=== PATIENT | female | born 1995 | race Caucasian/White ===

== ENCOUNTER 2024-11-18 22:25 | Emergency (ER) | payer BC, SELFPAY ==
[2024-11-18 22:26] VITALS: BP 147/91; PULSE 75; RESP 14; TEMP 36.6; O2SAT 98; BMI 24.5
[2024-11-18 22:28] VITALS: BP 147/67; PULSE 69; RESP 18; TEMP 36.6; O2SAT 98
[2024-11-18 23:14] LABS: Hematocrit 41.2 % (37-47); Hemoglobin 13.7 g/dL (12.0-15.0); Immature Granulocytes Count 0.030 X10^3/uL (0.0-0.0); Mean Corp Hgb Conc 33.3 g/dL (32-36); Mean Corpuscular Volume 81.4 fL (81-99); Mean Platelet Vol. 10.0 fl (6.2-12.0); NRBC Flagged by Analyzer 0 % (0-5); Platelet Count 243 K/mm3 (150-450); RBC Distribution Width CV 13.7 % (11.6-14.6); RBC Distribution Width SD 40.0 fl (35.1-43.9); Red Blood Count 5.06 M/mm3 (4.2-5.4); White Blood Count 7.5 K/mm3 (4.4-11.0)
[2024-11-18] MEDS: Ampicillin/Sulbactam 3 GM in 0.9% Normal Saline (100mL MB+) 100 ML IV (23:15)
--- OUTSIDE RECORDS SUMMARY | 2024-11-18 23:22 | XMS RPT_ITS | CCD ---
Author Organization [facility] Care Team Providers Care Informatics Analyst Name Role Phone KEISHA REDDY Unavailable Unavailable KEISHA REDDY GENE Unavailable Unavailable Keisha Reddy G Unavailable Unavailable Jolliff, Glenis Unavailable Unavailable Keisha Reddy G Unavailable Unavailable Jolliff, Glenis Unavailable Unavailable Unavailable Primary Care Provider UnavailBijal Saucedo Primary Care Provider [phone] Bijal Mo Primary Care Provider [phone] Bijal Mo Primary Care Provider Unavailable Primary Care Provider UnavailGLENIS Stinson Attending Unavailable BIJAL MO Primary Care Unavailable Medications Current Medications Medication Drug Class(es) Dates Sig (Normalized) Sig (Original) acetaminophen 500 mg oral tablet (4 sources) Start: 01-03-2023 take 1 tablet by mouth every eight hours as needed for pain acetaminophen (Tylenol) 500 MG tablet Take 1 tablet (500 mg) by mouth every 8 hours as needed for mild pain (1-3). 60 tablet 0 01/03/2023 Active Start: 01-01-2023 End: 01-03-2023 take 1 tablet by mouth every six hours as needed 650 mg, Oral, Every 6 hours PRN, other, pain (1-10), Starting on 01/01/23 at 1744, Give in addition to any other pain medication ordered at same time for any pain indication. Maximum dose of acetaminophen is 4000 mg from all sources in 24 hours. Alternate ibuprofen and acetaminophen every 3 hours. Give ibuprofen first in the sequence. Start: 06-09-2021 take 650 mg by mouth every six hours as needed for pain, then take 4000 mg by mouth every twenty-four hours as needed for pain 650 mg, Oral, EVERY 6 HOURS PRN, Pain Mild (1-3), Starting on Tue06/09/21 at 1517 Maximum dose of acetaminophen is 4000 mg from all sources in 24 hours. Start: 06-08-2021 End: 06-09-2021 take 650 mg by mouth every four hours as needed for pain, then take 4000 mg by mouth every twenty-four hours as needed for pain 650 mg, Oral, EVERY 4 HOURS PRN, Pain Mild (1-3), Fever, Fever >100.5 F (38 C), Starting on 06/08/21 at 0044 Maximum dose of acetaminophen is 4000 mg from all sources in 24 hours. azithromycin 250 mg oral tablet (1 source) Macrolide Antimicrobial Start: 08-19-2021 End: 08-24-2021 azithromycin (ZITHROMAX) 250 MG tablet Indications: Pelvic pain Take 1 tablet by mouth See Admin Instructions for 5 days 500mg on day 1 followed by 250mg on days 2 - 5 6 tablet 0 08/19/2021 08/24/2021 Active docusate sodium 100 mg oral capsule (20 sources) Start: 06-09-2021 End: 01-03-2023 take 1 capsule by mouth twice daily as needed Docusate Sodium (DSS) 100 MG capsule Take 1 capsule by mouth 2 times daily as needed. 0 06/11/2021 Active ferrous sulfate 325 mg oral tablet (15 sources) Start: 01-01-2023 End: 01-03-2024 take 1 tablet by mouth in the morning ferrous sulfate 325 (65 Fe) MG tablet Take 1 tablet (325 mg) by mouth in the morning and 1 tablet (325 mg) in the evening. Take with meals. 60 tablet 2 01/03/2023 01/03/2024 Active Start: 10-01-2022 End: 01-03-2023 take 1 tablet by mouth in the morning, then take 1 tablet by mouth at mealtime, then take 1 tablet by mouth twice daily ferrous sulfate ER 142 mg ER tablet Take 1 tablet (142 mg) by mouth in the morning and 1 tablet (142 mg) in the evening. Take with meals. Take 1 tablet by mouth twice a day.. 60 tablet 3 10/01/2022 01/03/2023 Discontinued (Stop taking at discharge) fluconazole 200 mg oral tablet (1 source) Azole Antifungal Start: 08-01-2021 take 1 tablet by mouth once daily, then take 2 tablets by mouth once daily, then take 1 tablet by mouth once daily fluconazole (DIFLUCAN) 200 MG tablet Indications: Yeast infection of nipple, Take 1 tablet by mouth daily (Take 2 tablets on the first day, then one tablet daily thereafter) 9 tablet 0 08/01/2021 Active ibuprofen 600 mg oral tablet (7 sources) Nonsteroidal Anti-inflammatory Drug Start: 12-31-2022 End: 01-03-2023 take 1 tablet by mouth every six hours as needed for pain ibuprofen 600 MG tablet Take 1 tablet (600 mg) by mouth every 6 hours as needed for mild pain (1-3). 60 tablet 0 01/03/2023 Active Start: 06-09-2021 take 1 tablet by eden th every six hours ibuprofen (ADVIL;MOTRIN) 600 MG tablet Take 1 tablet by mouth every 6 hours 120 tablet 3 06/11/2021 Active Start: 06-08-2021 take 600 mg by mouth once 600 mg, Oral, ONCE, On 06/08/21 at 0115, For 1 dose IMMEDIATE . Do not crush or chew. DO NOT GIVE IBUPROFEN PRIOR TO DELIVERY. Post Delivery Misc. Devices (BREAST PUMP) MISC (2 sources) Start: 04-07-2021 Misc. Devices (BREAST PUMP) MISC 1 each by Does not apply route as needed () DOUBLE ELECTRIC BREAST PUMP: Use as needed for [place] Feeding problems (ICD10 P92.9), Sore nipples (ICD10 092.13), Maternal fatigue (ICD10 R53.83) , Engoregment (ICD10 O92.6) or Decrease milk supply (ICD10 O92.5) 1 each 0 04/07/2021 Active MV-Min-Fe Fum-FA-DHA ( 1 PO) (2 sources) MV-Min- Fe Fum-FA-DHA ( 1 PO) Take by mouth 0 Active Vit-Fe Fumarate-FA ( VITAMIN PO) (20 sources) Vit-Fe Fumarate-FA ( VITAMIN PO) Take by mouth. 0 Active sennosides, mcc 8.6 mg oral tablet (1 source) Start: 01-03-2023 take 1 tablet by mouth twice daily as needed for constipation senna (Senokot) 8.6 MG tablet Take 1 tablet (8.6 mg) by mouth 2 times daily as needed for constipation. 60 tablet 0 01/03/2023 Active simethicone 80 mg chewable tablet (1 source) Start: 06-09-2021 take 80 mg by mouth every six hours as needed 80 mg, Oral, EVERY 6 HOURS PRN, Cramping, Flatulence, Starting on Tue06/09/21 at 1517, Completed/Discontinued Medications Medication Drug Class(es) Dates Sig (Normalized) Sig (Original) benzethonium chloride 2 mg/ml / benzocaine 200 mg/ml topical spray (2 sources) Standardized Chemical Allergen Start: 01-01-2023 End: 01-03-2023 Topical, As needed, pain, , Starting on 01/01/23 at 1744, , Apply to perineal area. Patient is capable and may self administer at bedside. Start: 06-09-2021 Topical, PRN, Pain, Starting on Tue06/09/21 at 1517 Apply to perineal area. Patient is capable and may self administer at bedside. calcium chloride 0.0014 meq/ ml / potassium chloride 0.004 meq/ml / sodium chloride 0.103 meq/ml / sodium lactate 0.028 meq/ml injectable solution (2 sources) Start: 12-31-2022 End: 01-01-2023 lactated ringers infusion Start: 06-08-2021 End: 06-09-2021 IntraVENous, at 125 mL/hr, C ONTINUOUS, Starting on Tue06/08/21 at 0115, Labor and Delivery chlorhexidine gluconate 20 mg/ml medicated pad (1 source) Start: 12-31-2022 End: 01-01-2023 Chlorhexidine Gluconate Cloth 2 % cloth doxylamine succinate 25 mg oral tablet (17 sources) End: 12-08-2022 doxylamine (Unisom) 25 MG tablet Take 25 mg by mouth if needed. 0 12/08/2022 Discontinued (Med list cleanup) Doxylamine Succinate, Sleep, (UNISOM PO) (1 source) End: 06-11-2021 Doxylamine Succinate, Sleep, (UNISOM PO) Take 25 mg by mouth as needed 0 06/11/2021 Discontinued (Stop Taking at Discharge) famotidine 20 mg oral tablet (1 source) Histamine-2 Receptor Antagonist Start: 01-01-2023 End: 01-03-2023 take 20 mg by mouth twice daily as needed for gastroesophageal reflux disease 20 mg, Oral, 2 times daily PRN, heartburn, Starting on 01/01/23 at 1744, , Renal dose per pharmacy for peptic ulcer prophylaxis. lanolin 1000 mg/ml topical cream (2 sources) Start: 01-01-2023 End: 01-03-2023 Topical, As needed, dry skin, nipple discomfort, Starting on 01/01/23 at 1744, , Apply to affected area. Start: 06-09-2021 Topical, PRN, Dry Skin, nipple discomfort, Starting on Tue06/09/21 at 1517, miSOPROStol (CYTOTEC) pre-split tablet TABS 25 mcg (1 source) Start: 06-08-2021 End: 06-09-2021 miSOPROStol (CYTOTEC) pre-split tablet TABS 25 mcg 1 ml morphine sulfate 4 mg/ml injection (1 source) Opioid Agonist Start: 06-08-2021 End: 06-08-2021 morphine sulfate (PF) injection 4 mg Start: 06-08-2021 End: 06-08-2021 morphine sulfate (PF) inject ion 4 mg ondansetron 4 mg disintegrating oral tablet (20 sources) Serotonin-3 Receptor Antagonist Start: 05-20-2022 End: 12-24-2022 take 1 tablet by mouth every twelve hours as needed for nausea ondansetron ODT (Zofran-ODT) 4 MG disintegrating tablet Take 1 tablet (4 mg) by mouth every 12 hours as needed for nausea or vomiting for up to 30 doses. Do not take with promethazine 30 tablet 1 05/20/2022 12/24/2022 Discontinued (Therapy completed) Start: 06-09-2021 take 8 mg by mouth e very eight hours as needed for nausea 8 mg, Oral, EVERY 8 HOURS PRN, Nausea, Starting on Tue06/09/21 at 1517, Start: 06-08-2021 End: 06-09-2021 4 mg, IntraVENous, EVERY 6 H OURS PRN, Nausea, Starting on 06/08/21 at 0044, Labor and Delivery Start: 03-02-2021 End: 06-11-2021 take 1 tablet by mouth every eight hours as needed for nausea ondansetron (ZOFRAN-ODT) 4 MG disintegrating tablet Take 1 tablet by mouth every 8 hours as needed for Nausea or Vomiting 30 tablet 1 03/02/2021 06/11/2021 Discontinued (Stop Taking at Discharge) ondansetron ODT (Zofran-ODT) disintegrating tablet 4 mg (1 source) Start: 01-01-2023 End: 01-03-2023 take 1 tablet by mouth every eight hours as needed for nausea and vomiting ondansetron ODT (Zofran-ODT) disintegrating tablet 4 mg oxyCODONE hydrochloride 5 mg oral tablet (1 source) Opioid Agonist Start: 06-09-2021 End: 06-09-2021 oxyCODONE (ROXICODONE) immediate release tablet 5 mg oxytocin (PITOCIN) 10 unit bolus from the bag (1 source) Start: 06-09-2021 500 mL (30 Units), IntraVENous, Administer over 75 Minutes, TITRATED, Starting on Tue06/09/21 at 1245 For Immediate Post Use Only. Give after delivery of placenta. &nbsp ;Bag 1 of 2: Bolus for bag to infuse at 999 ml/hour for 15 minutes (15 units in 250cc). After initial bolus then decrease rate to 250cc/hr for 1 hour. Then discontinue. oxytocin (PITOCIN) 30 units in 500 mL infusion (2 sources) Start: 06-08-2021 End: 06-09-2021 oxytocin (PITOCIN) 30 units in 500 mL infusion Start: 06-08-2021 End: 06-09-2021 oxytocin (PITOCIN) 30 units in 500 mL infusion oxytocin (Pitocin) 30 units in 500 mL infusion (4 sources) Start: 01-01-2023 End: 01-03-2023 oxytocin (Pitocin) 30 units in 500 mL infusion Start: 01-01-2023 End: 01-01-2023 oxytocin (Pitocin) 30 units in 500 mL infusion Start: 01-01-2023 End: 01-01-2023 oxytocin (Pitocin) 30 units in 500 mL infusion Start: 12-31-2022 End: 01-03-2023 oxytocin (Pitocin) 30 units in 500 mL infusion oxytocin (PITOCIN) 30 units in 500 mL infusion Override Pull (1 source) Start: 06-08-2021 End: 06-08-2021 oxytocin (PITOCIN) 30 units in 500 mL infusion Override Pull promethazine hydrochloride 25 mg oral tablet (8 sources) Phenothiazine Start: 04-15-2022 End: 07-14-2022 take 1 tablet by mouth every four hours promethazine (Phenergan) 25 MG tablet Indications: with inconclusive viability, single or unspecified fetus Take 1 tablet (25 mg) by mouth every 4 hours. 90 tablet 1 04/15/2022 07/14/2022 pyridoxine hydrochloride 25 mg oral tablet (20 sources) End: 01-03-2023 pyridoxine (Vitamin B-6) 25 MG tablet Take 25 mg by mouth if needed. 0 01/03/2023 Discontinued (Stop taking at discharge) 1 ml terbutaline sulfate 1 mg/ml injection (2 sources) Start: 06-09-2021 End: 06-09-2021 terbutaline (BRETHINE) injection 0.25 mg Start: 06-09-2021 End: 06-09-2021 terbutaline (BRETHINE) 1 MG/ ML injection wit adriel 500 mg/ml medicated pad (2 sources) Start: 01-01-2023 End: 01-03-2023 Topical, As needed, hemorrho ids, For perineal pain or discomfort, Starting on 01/01/23 at 1744, , Apply to perineal area. Patient is capable and may self administer at bedside. Start: 06-09-2021 Topical, PRN, Hemorrhoids, For perineal pain or discomfort, Starting on 06/09/21 at 1517 Apply to perineal area. Patient is capable and may self administer at bedside. Problems Active Problems Problem Classification Problem Date Documented Da te Episodic/Chronic Hemorrhage during ; abruptio placenta; placenta previa (1 source) Threatened miscarriage; Translations: [Threatened ] 05-16-2022 Episodic Immunizations and screening for infectious disease (2 sources) Requires diphtheria, tetanus and pertussis vaccination; Translations: [Encounter for immunization] 09-29-2022 Episodic Other complications of (9 sources) Anemia during - baby not yet delivered; Translations: [Anemia complicating , unspecified trimester] Onset: 10-01-2022 10-01-2022 Chronic Other complications of (10 sources) Anemia of ; Translations: [Anemia complicating , unspecified trimester] Onset: 10-01-2022 12-24-2022 Chronic Other complications of (3 sources) 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 ; Translations: [Other mental disorders complicating , unspecified trimester] Episodic Other complications of (1 source) Dysuria; Translations: [Other specified related conditions, unspecified trimester] 10-29-2022 Episodic Residual codes; unclassified (1 source) Gestation period, 32 weeks; Translations: [32 weeks gestation of ] 10-29-2022 Episodic Residual codes; unclassified (1 source) Gestation period, 40 weeks; Translations: [40 weeks gestation of ] 12-28-2022 Episodic Past or Other Problems Problem Classification Problem Date Documented Date Episodic/Chronic Nonmalignant breast conditions (20 sources) Abscess of breast; Translations: [Abscess of the breast and nipple] Onset: 07-08-2021 Episodic Other complications of ; puerperium affecting management of mother (3 sources) ultrasound scan abnormal; Translations: [Maternal care for other (suspected) abnormality and damage, not applicable or unspecified] Onset: 04-07-2021 Resolved: 07-03-2021 Episodic Other complications of (3 sources) Group B Streptococcus carrier; Translations: [Streptococcus B carrier state complicating ] Onset: 05-19-2021 Resolved: 07-03-2021 Episodic Other complications of (3 sources) Abnormal findings on screening of mother; Translations: [Abnormal chromosomal and genetic finding on screening of mother] Onset: 12-10-2020 Resolved: 07-03-2021 Episodic Other complications of (3 sources) Cardiotochogram finding; Translations: [Maternal care for abnormalities of the heart rate or rhythm, third trimester, not applicable or unspecified] Onset: 06-08-2021 Resolved: 07-03-2021 Episodic Other complications of (2 sources) ; Translations: [ with inconclusive viability, not applicable or unspecified] Episodic Other and delivery including normal (20 sources) Patient encounter status; Translations: [Encounter for supervision of normal , unspecified, unspecified trimester] Onset: 11-12-2020 Resolved: 05-21-2022 Episodic Other screening for suspected conditions (not mental disorders or infectious disease) (3 sources) Cancer cervix screening status; Translations: [Encounter for screening for malignant neoplasm of cervix] Onset: 06-13-2024 06-13-2024 Episodic Prolonged (5 sources) Gestation period, 41 weeks; Translations: [Post-term ] Onset: 12-31-2022 12-31-2022 Episodic Residual codes; unclassified (20 sources) FH: Chromosomal anomaly; Translations: [Family history of other congenital malformations, deformations and chromosomal abnormalities] Onset: 05-20-2022 05-20-2022 Episodic Results Test Name Value Interpretation Reference Range Facility 36on 11-17-2024 36 S: Patient spoke wit h [facility] nurse regarding rash B: Onset of symptoms/concern yesterday A: states is currently being treated for a possible staph / MRSA infection on her skin. States started as a bug bite. Started on oral clindamycin yesterday (first dose about 3 pm) to treat. Pt states she is now developing more spots, not blisters but more like a pinpoint rash to her abdomen, chest and under arm. Nothing to hands, legs, or face. States the rash started prior to her starting the clindamycin. No current fevers/ chills, shortness of breath. Did feel a little more lethargic today when first woke but has felt better as the day has gone on. Rash is itchy, no pain. R: ECW reviewed, noted pt is also currently . Offered to schedule an after-hours clinic appointment for tomorrow. Pt states she works 7a-7p, will call her work and then call back to schedule. Pt called back in, pt scheduled for 11/18 at 930 at the [place] after-hours clinic at [facility]. Pt instructed to arrive 15 minutes early, bring ID, insurance card and current med list. Pt given address and location of after hours clinic. Patient understands care advice. No further needs at this time. Patient instructed to call back with new or worsening symptoms. Reason for Disposition Protocols used: Rash or Redness - [id number] Normal [facility] Office Visiton 06-13-2024 Follow-up visit [id number] Macy Flores 1995 F Date Provider Department Center 06/13/2024 GLENIS KIMBROUGH [facility] OB None Family History Problem Relation Age of Onset Other Paternal Grandmother Heart disease Maternal Grandfather Family Status - Relation Status Age at Paternal Grandfather Alive Paternal Grandmother Alive Maternal Grandmother Alive Maternal Grandfather Alive Father Alive Mother Alive Level of Service:37809 DC PERIODIC PREVENTIVE MED EST PATIENT 18-39 YRS Reason for Visit and Comments: Annual Exam [83] [facility] Progress Noteon 06-13-2024 Progress Note Macy Flores 06/13/2023 28 y.o. Primary Care Physician: Bijal Mo Chief Complaint Patient presents with Annual Exam HPI : Macy Flores is a 28 y.o. female here for annual exam. Gynecologic History: Patient's last menstrual period was 05/18/2024 (exact date). Menses are regular. Menses occur every regular every 28-32 days. Flow is moderate Intermenstrual bleeding: no Dysmenorrhea:none Sexually Active: Yes Dyspareunia: No Contraception: condoms Thinking of trying for another baby later this year Preventative Health Testing: Date of Last Pap Smear: neg pap 11/2020 Abnormal Pap Smear History: none OB History Para Term AB Living 2 2 2 0 0 2 SAB IAB Ectopic Multiple Live Births 0 0 0 0 2 # Outcome Date GA Lbr Macario/2nd Weight Sex Type Anes PTL Lv 2 Term 01/01/23 41w2d 8 lb 9.7 oz (3.905 kg) F Vag-Spont EPI N ROHIT Complications: Meconium Name: Bereket Flores Apgar1: 8 Apgar5: 9 1 Term 06/09/21 39w2d 8 lb (3.629 kg) M Vag-Spont ROHIT Comments: Induced for possible Cat II Name: ARTIE FLORES Apgar1: 8 Apgar5: 9 Past Medical History: Diagnosis Date Seasonal allergies Past Surgical History: Procedure Laterality Date US ASP BREAST CYST LEFT (HISTORICAL) Left 07/09/2021 US BREAST CYST ASPIRATION LEFT US ASP BREAST CYST LEFT (HISTORICAL) Left 08/21/2021 US BREAST CYST ASPIRATION LEFT WISDOM TOOTH EXTRACTION Family History Problem Relation Name Age of Onset Other (ms) Paternal Grandmother Heart disease Maternal Grandfather MEDICATIONS: No current outpatient medications on file. No current facility-administered medications for this visit. ALLERGIES: Allergies as of 06/13/2024 (No Known Allergies) REVIEW OF SYSTEMS: CONSTIUTIONAL: No weight change or fatigue. No fever or chills. No changes in appetite. CV: No chest pain, palpitations, or syncope. RESPIRATORY: No SOB, cough, or wheezing. BREAST: No breast abnormalities or lumps. GI: No nausea, vomiting, diarrhea, constipation, bloating or bowel changes. No blood or mucous with bowel movements or melena. : No dysuria, frequency, hesitancy, urgency. No urinary incontinence. No vaginal discharge, odor, or itch. No dyspareunia. NEURO: No weakness or sensory changes MUSCULOSKELETAL: No back pain or arthralgias. HEME and LYMPH : No lymphoma or abnormal bleeding history PHYSICAL EXAM: Vitals: 06/13/24 1403 BP: 109/73 Pulse: 52 Weight: 154 lb (69.9 kg) Height: 5' 5 (1.651 m) Body mass index is 25.63 kg/m?. GENERAL EXAM CONSTITUTIONAL: no acute distress CARDIOVASCULAR: normal rate, no edema LUNGS: normal effort ABDOMEN: soft, non-tender, non-distended NEUROLOGICAL: no gross motor or sensory deficits noted MUSCULOSKETAL: normal gait, no cyanosis PSYCHIATRIC: normal mood and affect, A&O x3 PRODUCTION STATISTICAL CLERK EXAM: BREASTS: normal, no masses, tenderness or skin changes EXTERNAL GENITALIA: normal female structures VAGINA: normal ruggae, no lesions CERVIX: no lesions, no cervical motion tenderness, normal appearance UTERUS: normal mobility, nontender, normal size, shape and consistency ADNEXA: normal, non tender no masses URETHRA: normal. nontender BLADDER: non tender PELVIC SUPPORT DEFECTS: normal support of vagina, uterus, and bladder ANUS/PERINEUM: no hemorrhoids, masses or warts noted ASSESSMENT/PLAN: Macy was seen today for annual exam. Diagnoses and all orders for this visit: Encounter for gynecological examination without abnormal finding (Primary) Screening for cervical cancer - Pap Smear Follow up in about 1 year (around 06/13/2025) for annual. Discussed pap guidelines and routine gynecologic preventative care/screening. Self breast exam discussed. Weight management through healthy diet and regular exercise reviewed. Advised use of MVI and vit D supplementation, calcium through diet if able. Routine health maintenance per patient's PCP as well. Glenis Grier M.D. 06/13/2024 at 2:14 PM (Electronically Signed) Normal [facility] N. gonorrhoeae DNA GALINA+probe Ql (Cervical mucus)on 01-02-2023 C. trachomatis DNA GALINA+probe Ql (Unsp spec) Not detected Not Detected [facility] Interpretation and review of laboratory results Normal [facility] N gonorrhoeae, DNA Probe Not detected Not Detected [facility] Methodology: real-time PCR This test is intended for medical purposes only and is not intended for the evaluation of suspected sexual abuse or for other forensic purposes. In certain contexts, culture may be required to meet applicable laws and regulations for diagnosis of C. trachomatis and N. gonorrhoeae infections. Per 2014 CDC recommmendations, this test does not include confirmation of positive results by an alternative nucleic acid target. A negative result does not exclude the possibility of infection. A result of invalid indicates that a new specimen should be collected if clinically indicated. [facility] Blood type and Crossmatch guido maldonado (Bld)on 01-01-2023 ABO group Nom (Bld) O [facility] Blood group antibody screen GEL Ql Negative [facility] D Ag Ql [facility]RBC) [facility] Auto (Bld)Ordered By: Peterson Gillette on 01-01-2023 Erythrocyte distribution width (RBC) [Ratio] 23.1 % High 11.5 - 14.5 % [facility] Comment on above: I-Anisocytosis Hematocrit (Bld) [Volume fraction] 40.3 % 35.0 - 47.0 % [facility] Hemoglobin (Bld) [Mass/Vol] 13.8 g/dL 11.7 - 16.0 g/dL [facility] Interpretation and review of laboratory results Abnormal [facility] MCH (RBC) [Entitic mass] 27.2 pg 26.0 - 34.0 pg [facility] MCHC (RBC) [Mass/Vol] 34.2 % 32.0 - 36.0 % [facility] MCV (RBC) [Entitic vol] 79.7 fL Low 80.0 - 98.0 fL [facility] Platelet mean volume (Bld) [Entitic vol] 9.2 fL 7.4 - 12.4 fL [facility] Platelets (Bld) [#/Vol] 148 10*3/uL 140 - 440 10*3/uL [facility] RBC (Bld) [#/Vol] 5.05 10*6/uL 3.8 - 5.20 10*6/uL [facility] WBC (Bld) [#/Vol] 8.0 10*3/uL 3.6 - 10.7 10*3/uL [facility] No Panel Informationon 01-01 [facility] Urinalysis macro (dipstick) panel (U)on 12-24-2022 Bilirubin, UA [facility] Blood, UA Negative [facility] Glucose, UA Negative [facility] Interpretation and review of laboratory results Normal [facility] Ketones, UA Negative [facility] Leukocytes, UA Trace [facility] th Nitrite, UA Negative [facility] pH, UA 6.0 [facility] Protein, UA Negative [facility] Spec Grav, UA 1.020 [facility] Urobilinogen, UA 1.0 [facility] ABO and Rh group panel (Bld) on 05-21-2022 ABO group Nom (Bld) O [facility] Rh Nom (Bld) Positive [facility] Comment on above: For additional information, please refer to http://education.Platypus Platform.[employer]/faq/EXO728 (This link is being provided for informational/ educational purposes only.) Blood group antibody screen GEL Qlon 05-21-2022 Blood group antibody screen Ql Detected [facility] Comment on above: Reference range No antibodies detected This assay is a screening test for the detection of red blood cell antibodies. The test is not to be used for pretransfusion screening or for the medical management of an alloimmunized . CBC W Auto Differential pane l (Bld)on 05-21-2022 Band form neutrophils (Bld) [#/Vol] CANCELED [facility] Comment on above: Result canceled by t he ancillary. Band form neutrophils/100 WBC (Bld) CANCELED % [facility] Comment on above: Result canceled by t he ancillary. Basophils (Bld) [#/Vol] 38 10*3/uL S [facility] Basophils/100 WBC (Bld) 0.6 % S [facility] Blasts (Bld) [#/Vol] CANCELED 0 cells/uL [facility] [place] [facility] Comment on above: Result canceled by [facility] ancillary. Blasts/100 WBC (Bld) CANCELED % [facility] [place] [facility] Comment on above: Result canceled by [facility] ancillary. Eosinophils (Bld) [#/Vol] 192 10*3/uL [facility] Eosinophils/100 WBC (Bld) 3.0 % [facility] Erythrocyte distribution width (RBC) [Ratio] 16.9 % High 11.0 - 15.0 % [facility] Hematocrit (Bld) [Volume fraction] 38.6 % 35.0 - 45.0 % [facility] Hemoglobin (Bld) [Mass/Vol] 12.1 g/dL 11.7 - 15.5 g/dL [facility] Interpretation and review of laboratory results Abnormal [facility] Lymphocytes (Bld) [#/Vol] 1523 10*3/uL [facility] Lymphocytes/100 WBC (Bld) 23.8 % [facility] MCH (RBC) [Entitic mass] 22.1 pg Low 27.0 - 33.0 pg [facility] MCHC (RBC) [Mass/Vol] 31.3 g/dL Low 32.0 - 36.0 g/dL [facility] MCV (RBC) [Entitic vol] 70.4 fL Low 80.0 - 100.0 fL [facility] Metamyelocytes (Bld) [#/Vol] CANCELED 0 cells/uL [facility] Comment on above: Result canceled by [facility] ancillary. Metamyelocytes/100 WBC (Bld) CANCELED % [facility] Comment on above: Result canceled by [facility] ancillary. Monocytes (Bld) [#/Vol] 627 10*3/uL [facility] Monocytes/100 WBC (Bld) 9.8 % [facility] Myelocytes (Bld) [#/Vol] CANCELED 0 cells/uL [facility] [facility] Comment on above: Result canceled by [facility] ancillary. Myelocytes/100 WBC (Bld) CANCELED % [facility] Comment on above: Result canceled by t he ancillary. Neutrophils (Bld) [#/Vol] 4019 10*3/uL [facility] Neutrophils/100 WBC (Bld) 62.8 % [facility] Nucleated RBC (Bld) [#/Vol] CANCELED 0 cells/uL [facility] Comment on above: Result canceled by t he ancillary. Nucleated RBC/100 WBC (Bld) [Ratio] CANCELED 0 /[address] [facility] [facility] Comment on above: Result canceled by t he ancillary. Platelet mean volume (Bld) [Entitic vol] 11.2 fL 7.5 - 12.5 fL [facility] Platelets (Bld) [#/Vol] 314 10*3/uL [facility] Promyelocytes (Bld) [#/Vol] CANCELED 0 cells/uL [facility] Comment on above: Result canceled by t he ancillary. Promyelocytes/100 WBC (Bld) CANCELED % [facility] Comment on above: Result canceled by t he ancillary. RBC (Bld) [#/Vol] 5.48 10*6/uL High [facility] comment (Unsp spec) [Interp] CANCELED [facility] Comment on above: Result canceled by t he ancillary. Variant lymphocytes/100 WBC (Bld) CANCELED 0 - 10 % [facility] Comment on above: Result canceled by t he ancillary. WBC (Bld) [#/Vol] 6.4 10*3/uL [facility] HBV surface Ag IA on 05-21 HBV surface Ag Neut test Ql CANCELED [facility] Comment on above: Result canceled by t he ancillary. HCV Ab IA on 05-21-2022 HCV Ab Signal/Cutoff IA [Rel units/Vol] {ratio} NINF - 1.00 [facility] Comment on above: HCV antibody was non-reactive. There is no laboratory evidence of HCV infection. In most cases, no further action is required. However, if recent HCV exposure is suspected, a test for HCV RNA (test code 23900) is suggested. For additional information please refer to http://education.[employer]inec/faq/PWZ28n0 (This link is being provided for informational/ educational purposes only.) HIV-1 and HIV-2 Antigen-Anti body Screen with Reflex (Dynex)on 05-21-2022 HIV 1+2 Ab+HIV1 p24 Ag IA Ql Non-Reactive NON-REACTIVE [facility] Comment on above: HIV-1 antigen and HI V-1/HIV-2 antibodies were not detected. There is no laboratory evidence of HIV infection. PLEASE NOTE: This information has been disclosed to you from records whose confidentiality may be protected by state law. If your state requires such protection, then the state law prohibits you from making any further disclosure of the information without the specific written consent of the person to whom it pertains, or as otherwise permitted by law. A general authorization for the release of medical or other information is NOT sufficient for this purpose. For additional information please refer to http://education.Qinec/faq/RRP074 (This link is being provided for informational/ educational purposes only.) The performance of this assay has not been clinically validated in patients less than 2 years old. Hepatitis B surface antigeno n 05-21-2022 HBV surface Ag IA Ql Non-Reactive NON-REACTIVE [facility] Hepatitis C antibodyon 05-21 HCV Ab IA Ql Non-Reactive NON-REACTIVE [facility] alth No Panel Informationon 05-21 [facility] RPRon 05-21-2022 Reagin Ab RPR Ql (S) Non-Reactive NON-REACTIVE [facility] Rubella antibody, IgGon 05-05 Rubella virus IgG Qn (S) 4.27 [IU]/mL Index [facility] Comment on above: Index Interpretation ----- <0.90 Not consistent with immunity 0.90-0.99 Equivocal > or = 1.00 Consistent with immunity The presence of rubella IgG antibody suggests immunization or past or current infection with rubella virus. US Pelvis transvaginalon Single live IUP, 8w5d by ultrasound. This is not consistent with the previously established EDC. The EDC based on today's ultrasound is 12/23/22. Patient is scheduled to see Juana Meyer CNM on . *Ultrasound cannot detect all or genetic abnormalities and a normal ultrasound cannot guarantee a normal outcome.* [facility] ------- OBSTETRICS REPORT (Signed Final 05/18/2022 10:11 am) ------- PATIENT INFO: ID #: [id number] : [birth year] (26 yrs)(F) Name: MACY FLORES Visit Date: 05/18/2022 09:47 am ------- PERFORMED BY: Attending: Brian Ladd MD Performed By: Jerrica Monterroso RDMS Referred By: HAI BRITTON MD [place] [facility] [facility] [place] Visit Type: [facility] [facility] ------- SERVICE(S) PROVIDED: Transvaginal [id number] ------- INDICATIONS: Threatened O20.0 Dating/viability/ EDC 12-23-22 = 8w5d 08 weeks gestation Z3A.08 ------- EVALUATION: Num Of Fetuses: 1 Preg. Location: Intrauterine Gest. Sac: Seen Yolk Sac: Visualized Pole: Visualized Heart Rate(bpm): 173 Cardiac Activity: Present Lie: Variable Placenta: too early to evaluate Amniotic Fluid JERRELL FV: Appropriate for gestational age ------- BIOMETRY: GS: 39.5 mm G.Age: 10w 0d KEO: 12/14/22 CRL: 21.1 mm G.Age: 8w 5d KEO: 12/23/22 ------- GESTATIONAL AGE: LMP: 9w 6d Date: 03/10/22 KEO: 12/15/22 Best: 8w 5d Det. By: Jennifer Reyes KEO: 12/23/22 (05/18/22) ------- CERVIX UTERUS ADNEXA: Cervix Appears closed Uterus Anteverted Right Ovary Size(cm) 2.97 2.4 1.8 Vol(ml): 6.72 Normal in size and appearance Left Ovary Size(cm) 2.55 1.7 2.12 Vol(ml): 4.81 Normal in size and appearance Cul De Sac No free fluid Adnexa Both adnexae appeared unremarkable. ------- ------- Brian Ladd MD Electronically Signed Final Report 05/18/2022 10:11 am ------- [facility] Brian Ladd MD - 05/18/2022 ------- OBSTETRICS REPORT (Signed Final 05/18/2022 10:11 am) ------- PATIENT INFO: ID #: [id number] : [birth year] (26 yrs)(F) Name: MACY FLORES Visit Date: 05/18/2022 09:47 am ------- PERFORMED BY: Attending: Brian Ladd MD Performed By: Jerrica Monterroso RDMS Referred By: HAI BRITTON MD [place] [facility] [place] [facility] [place] Visit Type: [facility] [place] [facility] ------- SERVICE(S) PROVIDED: Transvaginal [id number] ------- INDICATIONS: Threatened O20.0 Dating/viability/ EDC 12-23-22 = 8w5d 08 weeks gestation Z3A.08 ------- EVALUATION: Num Of Fetuses: 1 Preg. Location: Intrauterine Gest. Sac: Seen Yolk Sac: Visualized Pole: Visualized Heart Rate(bpm): 173 Cardiac Activity: Present Lie: Variable Placenta: too early to evaluate Amniotic Fluid JERRELL FV: Appropriate for gestational age ------- BIOMETRY: GS: 39.5 mm G.Age: 10w 0d KEO: 12/14/22 CRL: 21.1 mm G.Age: 8w 5d KEO: 12/23/22 ------- GESTATIONAL AGE: LMP: 9w 6d Date: 03/10/22 KEO: 12/15/22 Best: 8w 5d Det. By: Jennifer Reyes KEO: 12/23/22 (05/18/22) ------- CERVIX UTERUS ADNEXA: Cervix Appears closed Uterus Anteverted Right Ovary Size(cm) 2.97 2.4 1.8 Vol(ml): 6.72 Normal in size and appearance Left Ovary Size(cm) 2.55 1.7 2.12 Vol(ml): 4.81 Normal in size and appearance Cul De Sac No free fluid Adnexa Both adnexae appeared unremarkable. ------- ------- Brian Ladd MD Electronically Signed Final Report 05/18/2022 10:11 am ------- IMPRESSION: Single live IUP, 8w5d by ultrasound. This is not consistent with the previously established EDC. The EDC based on today's ultrasound is 12/23/22. Patient is scheduled to see Juana Meyer CNM on . *Ultrasound cannot detect all or genetic abnormalities and a normal ultrasound cannot guarantee a normal outcome.* [facility] Study observation (narrative) Keely Briggs alth US Pelvis transvaginalOrdere d By: Brian Ladd on 05-18-2022 [facility] Work Phone: CULT/STAIN - AEROBIC AND ELIER Cheng 08-24-2021 CULT/STAIN - AEROBIC AND ANAEROBIC STAIN GRAM --> Status: F Many polymorphonuclear cells/lpf. Rare gram positive cocci in clusters. Rare gram positive cocci in clusters. CULTURE ANAEROBE --> Status: F No growth of anaerobes at 5 days. 1 Organism Staphylococcus aureus Few Methicillin-resistant Staphylococcus aureus(MRSA) 1 Organism Antibiotic Result Intrp Nafcillin/Oxacillin(M IC) >= 4 R Inducible Clindamycin Resistant(LOTUS)Neg Neg Clindamycin(LOTUS) 0.25 S Vancomycin(LOTUS) 1 S Trimeth/Sulfa(LOTUS) <= 10 S Linezolid(LOTUS) 2 S Daptomycin(LOTUS) 0.25 S Gentamicin(LOTUS) <= 0.5 S Doxycycline(LOTUS) <= 0.5 S Tigecycline(LOTUS) <= 0.12 S Rifampin(LOTUS) <= 0.5 S Normal [facility] Comment on above: Performed By: #### C MICHELL #### [address] [place] [address] [id number] US Puncture Aspiration Breas t Cyst Lton 08-21-2021 US Puncture Aspiration Breast Cyst Lt Patient Name: MACY FLORES Ultrasound ACCESSION EXAM DATE/TIME PROCEDURE ORDERING PROVIDER [id number] 08/21/2021 13:51 EDT US Puncture Aspiration Evon BAER, Breast Cyst Lt DEENA CPT code 68413 [id number] Reason For Exam (US Puncture Aspiration Breast Cyst Lt) please aspirate both pockets if possible and send for culture Addendum ADDENDUM: This addendum is being provided to report the pathology results and recommendation for the previous report. PROCEDURE: US PUNCTURE ASPIRATION BREAST CYST LT: LEFT BREAST - AUGUST 21, 2021 - Prior study comparison: August 19, 2021, left breast US breast limited left performed at [facility]. July 08, 2021, left breast US breast limited left performed at [facility]. . PATHOLOGY RESULTS: BENIGN Imaging and pathology are concordant. Anaerobic culture: No interval today. Aerobic culture Staphylococcus aureus. Aerobic culture: Few methicillin-resistant Staphylococcus aureus (MRSA) RECOMMENDATION: Treatment plan. Final Addendum Signed Date and Time: 08/24/2021 9:38 am Signed by: MD LOWRY KERISTEN L Report PROCEDURE: US PUNCTURE ASPIRATION BREAST CYST LT: LEFT BREAST - AUGUST 21, 2021 - Prior study comparison: August 19, 2021, left breast US breast limited left performed at [facility]. July 08, 2021, left breast US breast limited left performed at [facility]. REASON FOR EXAMINATION: 26-year-old with a history of abscess presenting for aspiration. CONSENT: Ultrasound Report The patient presents for ultrasound-guided FNA of the left breast. Prior to the procedure red rules were performed which included patient name, date of , and procedure type. Risks, benefits and alternatives were explained to the patient and informed consent was obtained. The patient's prior imaging was reviewed. PROCEDURE: An audible time out was performed. I washed my hands and wore sterile gloves. The patient was scanned and three small organized abscess collections were redemonstrated in the medial central and upper inner quadrants. The patient was prepped in the usual sterile fashion. 7 mL of 1% Lidocaine was administered for local anesthesia. Aspiration was performed yielding 2 mL of blood- tinged pus which was sent for culture. Hemostasis was obtained by holding manual pressure. The patient tolerated the procedure without immediate complications. Home-going instructions were given and the patient was discharged in good condition. A post procedure mammogram was deferred. IMPRESSION: Technically successful US guided aspiration of the right breast yielding a scant amount of blood-tinged pus which was sent for culture. . Pathology results and recommendation will be provided as an addendum to this report following the receipt of the pathology report from the lab. . Report Dictated on PATHOLOGY RESULTS: PENDING Final Signed Date and Time: 08/21/2021 3:19 pm Signed by: MD LOWRY KERISTEN L Report last revised on 08/24/2021 09:38 EDT by MD LOWRY KERISTEN L Normal [facility] US Breast Limited Lefton US Breast Limited Left Patient Name: MACY FLORES Ultrasound ACCESSION EXAM DATE/TIME PROCEDURE ORDERING PROVIDER [id number] 08/19/2021 16:22 EDT US Breast Limited Left Evon BAER VICTORIA CPT code 60209 Reason For Exam (US Breast Limited Left) FU breast abscess Report REASON FOR EXAM: follow-up at short interval from prior study. PROCEDURE: US BREAST LIMITED LEFT: AUGUST 19, 2021 - Prior study comparison: July 08, 2021, left breast US breast limited left performed at [facility]. . FINDINGS: 26-year-old presenting for follow-up of a left breast abscess after drainage approximately six weeks ago. The abscess collection is redemonstrated spanning from 10:30 to 11:00, 6 cm from the nipple. It is overall decreased in size with an approximate measurement of 2.3 x 1.1 x 2.8 cm. The collection has also broken down into two smaller adjacent pockets. There is persistent peripheral hypervascularity and edema of the surrounding breast tissues. A second slightly more distant complicated fluid collection with peripheral hypervascularity at 9:00, 6 cm from the nipple. It measures 2.6 x 1.1 x 1.5 cm. And likely reflects additional abscess. The surrounding breast tissues are edematous. Left axillary surveillance redemonstrated two mildly thickened lymph nodes which are not significantly changed. IMPRESSION: Overall, the abscess collection has decreased in size and is now broken down into smaller adjacent pockets. Continued treatment recommended. A second probable abscess collection was also identified at 9:00 measuring 2.6 cm. The internal contents are thick and would not be amenable to aspiration at this time. Treatment plan and follow-up to resolution recommended. ASSESSMENT: Category 3 Probably benign RECOMMENDATION: Treatment plan and ultrasound of the left breast in 2-3 Months Ultrasound Report . Report Dictated on Final Signed Date and Time: 08/19/2021 4:25 pm Signed by: MD ESSENCE, DORI Reyes [facility] CULT/STAIN - AEROBIC AND ELIER Cheng 07-12-2021 CULT/STAIN - AEROBIC AND ANAEROBIC STAIN GRAM --> Status: F Many polymorphonuclear cells/lpf. Rare gram positive cocci in clusters. Rare gram positive cocci in clusters. CULTURE ANAEROBE --> Status: F No growth of anaerobes at 5 days. 1 Organism Staphylococcus aureus Few Methicillin-resistant Staphylococcus aureus(MRSA) 1 Organism Antibiotic Result Intrp Nafcillin/Oxacillin(M IC) >= 4 R Inducible Clindamycin Resistant(LOTUS)Neg Neg Clindamycin(LOTUS) 0.25 S Vancomycin(LOTUS) <= 0.5 S Trimeth/Sulfa(LOTUS) <= 10 S Linezolid(LOTSU) 2 S Daptomycin(LOTUS) 0.25 S Gentamicin(LOTUS) <= 0.5 S Doxycycline(LOTUS) <= 0.5 S Tigecycline(LOTUS) <= 0.12 S Rifampin(LOTUS) <= 0.5 S Normal [facility] Comment on above: Performed By: #### C MICHELL #### [address] [id number] [id number] US Puncture Aspiration Breas t Cyst [place] 07-09-2021 US Puncture Aspiration Breast Cyst Lt Patient Name: MACY FLORES Ultrasound ACCESSION EXAM DATE/TIME PROCEDURE ORDERING PROVIDER [id number] 07/09/2021 13:21 EDT US Puncture Aspiration Evon BAER, Breast Cyst Lt DEENA CPT code 87870 72169 Reason For Exam (US Puncture Aspiration Breast Cyst Lt) breast abscess, N61.1 Addendum ADDENDUM: This addendum is being provided to report the pathology results and recommendation for the previous report. PROCEDURE: US PUNCTURE ASPIRATION BREAST CYST LT: LEFT BREAST - JULY 09, 2021 - . PATHOLOGY RESULTS: BENIGN The aspiration throughout Staphylococcus aureus. Imaging and pathology are concordant. RECOMMENDATION: Physical exam/clinical correlation of the left breast. Clinical follow-up for the left breast abscess. Report Dictated on Final Addendum Signed Date and Time: 07/14/2021 9:45 am Signed by: DO OLIVERA RACHEL Report PROCEDURE: US PUNCTURE ASPIRATION BREAST CYST LT: LEFT BREAST - JULY 09, 2021 - REASON FOR EXAMINATION: Fine-needle aspiration of a possible left breast abscess. CONSENT: The patient presents for ultrasound-guided FNA of the left breast. Prior to the procedure red rules were performed which included patient name, date of , and procedure type. Risks, benefits and alternatives were explained to the patient and informed consent was obtained. The patient's prior imaging dated 07/08/2021 was reviewed. PROCEDURE: An audible time out was performed. I washed my hands and wore sterile gloves. The patient was scanned and the fluid collection in the 10:30 position, 6 cm from the nipple was Ultrasound Report redemonstrated. The patient was prepped in the usual sterile fashion. 6 mL of 1% Lidocaine was administered for local anesthesia. A FNA was performed using an 18 guage needle. Approximately 6 mL of thick bloody fluid. Aspirate was sent to cytology. Hemostasis was obtained by holding manual pressure. The patient tolerated the procedure without immediate complications. Home-going instructions were given and the patient was discharged in good condition. No postprocedure mammogram was performed. IMPRESSION: Technically successful US guided FNA of the left breast. . Report Dictated on PATHOLOGY RESULTS: PENDING Final Signed Date and Time: 07/09/2021 1:58 pm Signed by: DO OLIVERA RACHEL Report last revised on 07/14/2021 09:45 EDT by DO OLIVERA RACHEL [facility] US Breast Limited Lefton US Breast Limited Left Patient Name: MACY FLORES Ultrasound ACCESSION EXAM DATE/TIME PROCEDURE ORDERING PROVIDER [id number] 07/08/2021 11:32 EDT US Breast Limited Left SHIRA HUNTER CPT code 80073 Reason For Exam (US Breast Limited Left) Redness of skin Report REASON FOR EXAM: clinical finding. Redness, lump and tenderness on left breast. pt is breast feeding. PROCEDURE: US BREAST LIMITED LEFT: JULY 08, 2021 - . FINDINGS: The patient is a 25-year-old complaining of redness of the skin and palpable lump. The patient is and currently nursing. A sonogram of the left breast was performed in the area of palpable concern at the 10:30 position 6 cm from the nipple. At this location there is a hypoechoic irregular collection with mobile internal echoes and vascular flow. It measures 3.0 x 2.0 x 2.9 cm. There is posterior enhancement. The findings are suspicious for small abscess. Left axilla was surveyed. There is a lymph node with cortical thickening measuring 7 mm. This is probably reactive. This can be monitored with short-term follow-up. IMPRESSION: Suspect left breast abscess at the 10:30 position. Prominent left axillary lymph node is likely reactive. Surgical consultation is recommended. Short-term follow-up for prominent left axillary lymph node. ASSESSMENT: Category 3 Probably benign RECOMMENDATION: Ultrasound of the left breast in 2-3 months. . Report Dictated on Ultrasound Report Surgical consultation. Our nurse navigator, Cynthia will facilitate surgical consultation. Final Signed Date and Time: 07/08/2021 12:46 pm Signed by: MD ESPERANZA, RC Gonzalez Normal [facility] CBCon 06-08-2021 Hematocrit (Bld) [Volume fraction] 33.2 % Low 35.0 - 47.0 % [facility] Hemoglobin.gastrointest inal spec 1 Ql (Stl) 10.2 g/dL Low 11.7 - 16.0 g/dL [facility] Interpretation and review of laboratory results Abnormal [facility] MCH (RBC) [Entitic mass] 20.4 pg Low 26.0 - 34.0 pg [facility] MCHC (RBC) [Mass/Vol] 30.9 % Low 32.0 - 36.0 % [facility] MCV (RBC) [Entitic vol] 66.2 fL Low 79.0 - 98.0 fL [facility] Platelet distribution width (Bld) [Ratio] 16.4 % High 11.5 - 14.5 % [facility] Platelet mean volume (Bld) [Entitic vol] 9.7 fL 7.4 - 10.4 fL [facility] Platelets (Bld) [#/Vol] 171 10*3/uL 140 - 440 10*3/uL [facility] RBC (Bld) [#/Vol] 5.01 10*6/uL 3.80 - 5.2 0 10*6/uL [facility] WBC (Bld) [#/Vol] 10.1 10*3/uL 3.6 - 10.7 10*3/uL [facility] Test Performed by [facility], [address] [place] [id number] [place] [address] LAB [facility] Comp Metabolic Panelon 06-08 Calcium [Mass/Vol] 9.4 mg/dL Normal 8.4-10.4 [facility] Comment on above: Performed By: #### C MP3, HEMOG #### [address] ALP [Catalytic activity/Vol] 220 U/L High 38-126 [facility] Comment on above: Result Comment: Slig htly hemolysed, interpret with caution. Performed By: #### C MP3, HEMOG #### [address] eGFR OTHER > 90.0 Normal >60 [facility] Comment on above: Result Comment: KDIG O guidelines provide the following GFR categories: Stage GFR(ml/min/1.73 m2) Terms G1 >=90 Normal or high G2 60-89 Mildly decreased* G3a 45-59 Mildly to moderately decreased G3b 30-44 Moderately to severely decreased G4 15-29 Severely decreased G5 <15 Kidney failure *Relative to young adult level. In the absence of evidence of kidney damage, neither GFR category G1 nor G2 fulfill the criteria for CKD. The CKD-EPI equation is validated in individuals 18 years of age and older. Currently the best equation for estimating glomerular filtration rate (GFR) from serum creatinine in children is the Bedside Pleitez equation. It is less accurate in patients with extremes of muscle mass, restriction of dietary protein, ingestion of creatine, extra-renal metabolism of creatinine, or treatment with medications that affect renal tubular creatinine secretion. Performed By: #### C MP3, HEMOG #### [address] Protein [Mass/Vol] 7.5 g/dL Normal 6.3-8.2 [facility] Comment on above: Result Comment: Slig htly hemolysed, interpret with caution. Performed By: #### C MP3, HEMOG #### [address] [place] Urea nitrogen [Mass/Vol] 13 mg/dL Normal 9-20 [facility] Comment on above: Performed By: #### C MP3, HEMOG #### [facility] [address] [place], [place] Albumin [Mass/Vol] 3.7 g/dL Normal 3.5-5.0 [facility] Comment on above: Result Comment: Slig htly hemolysed, interpret with caution. Performed By: #### C MP3, HEMOG #### [place] [address], [place] Chloride [Moles/Vol] 107 mmol/L Normal 98-107 [facility] Comment on above: Performed By: #### C MP3, HEMOG #### [place] [address], [place] Potassium [Moles/Vol] 4.7 mmol/L Normal 3.5-5.1 [facility] Comment on above: Result Comment: Slig htly hemolysed, interpret with caution. Performed By: #### C MP3, HEMOG #### [place] [address], [place] Sodium [Moles/Vol] 131 mmol/L Low 135-145 [facility] Comment on above: Performed By: #### C MP3, HEMOG #### [place] [address], [place] ALT [Catalytic activity/Vol] 18 U/L Normal 0-34 [facility] Comment on above: The ALT test is perf ormed by an updated assay method. Please note that the reference intervals have been changed and are now sex specific. Result Comment: The ALT test is performed by an updated assay method. Please note that the reference intervals have been changed and are now sex specific. Performed By: #### C MP3, HEMOG #### [place] [address], [place] Anion gap [Moles/Vol] 5 mmol/L Normal 3-13 [facility] Comment on above: Performed By: #### C MP3, HEMOG #### [place] [address] [place], [place] AST [Catalytic activity/Vol] 69 U/L High 15-46 [facility] Comment on above: Slightly hemolysed, interpret with caution. Result Comment: Slig htly hemolysed, interpret with caution. Performed By: #### C MP3, HEMOG #### [place] [address] [place], [place] Bilirubin [Mass/Vol] 0.7 mg/dL Normal 0.2-1.3 [facility] Comment on above: Performed By: #### C MP3, HEMOG #### [place] [address] [place], [place] CO2 [Moles/Vol] 20 mmol/L Low 22-30 [facility] Comment on above: Performed By: #### C MP3, HEMOG #### [address] Creatinine [Mass/Vol] 0.86 mg/dL Normal 0.52-1.25 [facility] Comment on above: Performed By: #### C MP3, HEMOG #### [address] GFR/1.73 sq M.predicted among blacks MDRD (S/P/Bld) [Vol rate/Area] mL/min/{1.73_m2} Normal >60 [facility] Comment on above: Performed By: #### C MP3, HEMOG #### [place] [address] [place], [place] Glucose [Mass/Vol] 78 mg/dL Normal 70-100 [facility] Comment on above: Performed By: #### C MP3, HEMOG #### [address] Comprehensive Metabolic Pane sheldon 06-08-2021 Albumin [Mass/Vol] 3.7 g/dL 3.5 - 5.0 g/dL [facility] Comment on above: Slightly hemolysed, interpret with caution. ALP (Bld) [Catalytic activity/Vol] 220 U/L High 38 - 126 U/L [facility] Comment on above: Slightly hemolysed, interpret with caution. Calcium [Mass/Vol] 9.4 mg/dL 8.4 - 10. 4 mg/dL [facility] Chloride [Moles/Vol] 107 mmol/L 98 - 10 7 mmol/L [facility] EGFR IF NonAfrican Croatian >90.0 >60 mL/min [facility] Comment on above: KDIGO guidelines pro vide the following GFR categories: Stage GFR(ml/min/1.73 m2) Terms G1 >=90 Normal or high G2 60-89 Mildly decreased* G3a 45-59 Mildly to moderately decreased G3b 30-44 Moderately to severely decreased G4 15-29 Severely decreased G5 <15 Kidney failure *Relative to young adult level. In the absence of evidence of kidney damage, neither GFR category G1 nor G2 fulfill the criteria for CKD. The CKD-EPI equation is validated in individuals 18 years of age and older. Currently the best equation for estimating glomerular filtration rate (GFR) from serum creatinine in children is the Bedside Pleitez equation. It is less accurate in patients with extremes of muscle mass, restriction of dietary protein, ingestion of creatine, extra-renal metabolism of creatinine, or treatment with medications that affect renal tubular creatinine secretion. Free PSA/Total PSA [Mass fraction] 7.5 g/dL 6.3 - 8.2 g/dL [facility] Comment on above: Slightly hemolysed, interpret with caution. Interpretation and review of laboratory results Abnormal [facility] Potassium [Moles/Vol] 4.7 mmol/L 3.5 - 5.1 mmol/L [facility] Comment on above: Slightly hemolysed, interpret with caution. Sodium [Moles/Vol] 131 mmol/L Low 135 - 145 mmol/L [facility] Urea nitrogen (BldV) [Mass/Vol] 13 mg/dL 9 - 20 mg/dL [facility] Test Performed by [facility], [address] [place] [address] LAB [facility] Hemogramon 06-08-2021 Erythrocyte distribution width (RBC) [Ratio] 16.4 % High 11.5-14.5 [facility] Comment on above: Performed By: #### C MP3, HEMOG #### [address] [id number] Hematocrit (Bld) [Volume fraction] 33.2 % Low 35.0-47.0 [facility] Comment on above: Performed By: #### C MP3, HEMOG #### [facility] [address], [place] Hemoglobin (Bld) [Mass/Vol] 10.2 g/dL Low 11.7-16.0 [facility] Comment on above: Performed By: #### C MP3, HEMOG #### [facility] [address], [place] MCH (RBC) [Entitic mass] 20.4 pg Low 26.0-34.0 [facility] Comment on above: Performed By: #### C MP3, HEMOG #### [facility] [address], [place] MCHC 30.9 % Low 32.0-36.0 [facility] Comment on above: Performed By: #### C MP3, HEMOG #### [facility] [address], [place] MCV (RBC) [Entitic vol] 66.2 fL Low 79.0-98.0 [facility] Comment on above: Performed By: #### C MP3, HEMOG #### [facility] [address], [place] Platelet mean volume (Bld) [Entitic vol] 9.7 fL Normal 7.4-10.4 [facility] Comment on above: Performed By: #### C MP3, HEMOG #### [facility] [address], [place] Platelets (Bld) [#/Vol] 171 10*3/uL Normal 140-440 [facility] Comment on above: Performed By: #### C MP3, HEMOG #### [facility] [address], [place] RBC (Bld) [#/Vol] 5.01 10*6/uL Normal 3.80-5.20 [facility] Comment on above: Performed By: #### C MP3, HEMOG #### [facility] [address], [place] WBC (Bld) [#/Vol] 10.1 10*3/uL Normal 3.6-10.7 [facility] Comment on above: Performed By: #### C MP3, HEMOG #### [place] [address] [place] [id number] TS GELon 06-08-2021 TS GEL ABO Group: O Rh, Gel: POS Antibody Screen Gel: NEG Normal [facility] Comment on above: Performed By: #### T SGL #### [facility] [employer] TYPE AND SCREENon 06-08-2021 ABO Grouping O [facility] Positive [facility] Test Performed by [employer], [place] [address] [facility] SARS-CoV-2 (COVID-19) RT-PCR on 04-30-2021 SARS-CoV-2 (COVID-19) RNA GALINA+probe Ql (Unsp spec) Positive Abnormal [facility] Comment on above: Order Comment: DONYA MICHELLE SICK COVID 1130 Result Comment: POSI TIVE: SARS-CoV-2 RNA was detected - Interpretation: A positive result indicates severe acute respiratory syndrome coronavirus 2 (SARS-CoV-2) RNA is present. Clinical correlation with patient history and other diagnostic information is necessary to determine patient infection status. Positive results do not rule out bacterial infection or co-infection with other viruses. - Method: Real-time reverse transcriptase PCR amplification for the qualitative detection of the ORF1 a/b non-structural region that is unique to SARS-CoV-2 and a conserved region in the structural protein envelope E-gene for guevara-Sarbecovirus detection using the Demi SARS-CoV-2 assay on the [employer] Demi 6800 System. - Comment: This test has received FDA Emergency Use Authorization (EUA) and has been verified by [facility]. This test is only authorized for the duration of the public health emergency declaration and the circumstances that exist to justify the authorization of the emergency use of in vitro diagnostic tests for the detection of SARS-CoV-2 virus and/or diagnosis of COVID-19 infection under section 564(b)(1) of the Act, 21 U.S.C. 360bbb-3(b)(1), unless the authorization is terminated or revoked sooner. This test has not been FDA cleared or approved. Results should be used in conjunction with clinical findings, and should not form the sole basis for a diagnosis or treatment decision. - Fact Sheets for this EUA can be found at the following links: For Healthcare Providers: www.Shiftgig.gov/media/100914/download For Patients: www.Shiftgig.gov/media/674847/download - Reference Value: Negative Performed By: #### C OVID #### [address] [id number] SARS-CoV-2 (COVID-19) RT-PCR on 04-29-2021 DEMI SARS CoV-2 RT PCR Detected Normal A [facility] Comment on above: Order Comment: DONYA MICHELLE SICK COVID 1130 Performed By: #### C OVID #### [address] [id number] Vital Signs Date Time Vital Sign Value Performing Clinician Faci [facility] 06-13-2024 14:03-0400 Body height 165.1 cm Glenis Grier MD Work Phone: [facility] 06-13-2024 14:03-0400 Body mass index (BMI) [Ratio] 25.63 kg/m2 Glenis Grier MD Work Phone: [facility] 06-13-2024 14:03-0400 Body weight 69.85 kg Glenis Grier MD Work Phone: [facility] 06-13-2024 14:03-0400 Diastolic blood pressure 73 mm[Hg] Glenis Grier MD Work Phone: [facility] 06-13-2024 14:03-0400 Heart rate 52 /min Glenis Grier MD Work Phone: [facility] 06-13-2024 14:03-0400 Systolic blood pressure 109 mm[Hg] Glenis Grier MD Work Phone: [facility] 01-03-2023 09:24-0400 Body temperature 97.11 [degF] Flavio Yanez MD Work Phone: [facility] 01-03-2023 09:24-0400 Diastolic blood pressure 74 mm[Hg] Flavio Yanez MD Work Phone: [facility] 01-03-2023 09:24-0400 Heart rate 61 /min Flavio Yanez MD Work Phone: [facility] 01-03-2023 09:24-0400 Respiratory rate 17 /min Flavio Yanez MD Work Phone: [facility] 01-03-2023 09:24-0400 SaO2% (BldA) [Mass fraction] 98 % Flavio Ynaez MD Work Phone: [facility] 01-03-2023 09:24-0400 Systolic blood pressure 109 mm[Hg] Flavio Yanez MD Work Phone: [facility] 01-01-2023 00:15-0400 Body height 165.1 cm Flavio Yanez MD Work Phone: [facility] 01-01-2023 00:15-0400 Body mass index (BMI) [Ratio] 33.61 kg/m2 Flavio Yanez MD Work Phone: [facility] 01-01-2023 00:15-0400 Body weight 91.63 kg Falvio Yanez MD Work Phone: [facility] 12-29-2022 19:20-0400 Heart rate 62 /min Agustina Tapia MD Work Phone: [facility] 12-29-2022 17:55-0400 Body height 165.1 cm Agustina Tapia MD Work Phone: [facility] 12-29-2022 17:55-0400 Body mass index (BMI) [Ratio] 33.61 kg/m2 Agustina Tapia MD Work Phone: [facility] 12-29-2022 17:55-0400 Body temperature 98.1 [degF] Agustina Tapia MD Work Phone: [facility] 12-29-2022 17:55-0400 Body weight 91.63 kg Agustina Tapia MD Work Phone: [facility] 12-29-2022 17:55-0400 Diastolic blood pressure 87 mm[Hg] Agustina Tapia MD Work Phone: [facility] 12-29-2022 17:55-0400 Respiratory rate 16 /min Agustina Tapia MD Work Phone: [facility] 12-29-2022 17:55-0400 SaO2% (BldA) [Mass fraction] 99 % Agustina Tapia MD Work Phone: [facility] 12-29-2022 17:55-0400 Systolic blood pressure 124 mm[Hg] Agustina Tapia MD Work Phone: [facility] 12-28-2022 08:32-0400 Body mass index (BMI) [Ratio] 33.75 kg/m2 Nikky Sedlak KETTLE LOADER - CNM Work Phone: [facility] 12-28-2022 08:32-0400 Body weight 91.99 kg Nikky Kiddlak APR N - CNM Work Phone: [facility] 12-28-2022 08:32-0400 Diastolic blood pressure 80 mm[Hg] Nikky Sedlak KETTLE LOADER - CNM Work Phone: [facility] 12-28-2022 08:32-0400 Heart rate 86 /min Nikky Sedlak APR N - CNM Work Phone: [facility] 12-28-2022 08:32-0400 Systolic blood pressure 116 mm[Hg] Nikky Sedlak KETTLE LOADER - CNM Work Phone: [facility] 12-24-2022 12:59-0400 Body mass index (BMI) [Ratio] 33.78 kg/m2 Camelia Abhipoole KETTLE LOADER - CNM Work Phone: [facility] 12-24-2022 12:59-0400 Body weight 92.08 kg Camelia Abhipoole KETTLE LOADER - CNM Work Phone: [facility] 12-24-2022 12:59-0400 Diastolic blood pressure 87 mm[Hg] Camelia Claypoole KETTLE LOADER - CNM Work Phone: [facility] 12-24-2022 12:59-0400 Systolic blood pressure 137 mm[Hg] Camelia Quintana KETTLE LOADER - CNM Work Phone: [facility] 12-17-2022 11:06-0400 Body mass index (BMI) [Ratio] 33.12 kg/m2 Nancy Ivan KETTLE LOADER - CNM Work Phone: [facility] 12-17-2022 11:06-0400 Body weight 90.27 kg Nancy Ivan KETTLE LOADER - CNM Work Phone: [facility] 12-17-2022 11:06-0400 Diastolic blood pressure 76 mm[Hg] Nancy Ivan KETTLE LOADER - CNM Work Phone: [facility] 12-17-2022 11:06-0400 Heart rate 88 /min Nancy Ivan KETTLE LOADER - CNM Work Phone: [facility] 12-17-2022 11:06-0400 Systolic blood pressure 114 mm[Hg] Nancy Ivan KETTLE LOADER - CNM Work Phone: [facility] 12-08-2022 15:32-0400 Body mass index (BMI) [Ratio] 32.45 kg/m2 Lydia Banks KETTLE LOADER - CORPORATE TRAVEL COUNSELOR Work Phone: [facility] 12-08-2022 15:32-0400 Body weight 88.45 kg Lydia Banks KETTLE LOADER - CORPORATE TRAVEL COUNSELOR Work Phone: [facility] 12-08-2022 15:32-0400 Diastolic blood pressure 75 mm[Hg] Lydia Banks KETTLE LOADER - CORPORATE TRAVEL COUNSELOR Work Phone: [facility] 12-08-2022 15:32-0400 Heart rate 63 /min Lydia Banks KETTLE LOADER - CORPORATE TRAVEL COUNSELOR Work Phone: [facility] 12-08-2022 15:32-0400 Systolic blood pressure 116 mm[Hg] Lydia Banks KETTLE LOADER - CORPORATE TRAVEL COUNSELOR Work Phone: [facility] 11-26-2022 11:40-0400 Body mass index (BMI) [Ratio] 31.62 kg/m2 Nancy Ivan KETTLE LOADER - CNM Work Phone: [facility] 11-26-2022 11:40-0400 Body weight 86.18 kg Nancy Ivan KETTLE LOADER - CNM Work Phone: [facility] 11-26-2022 11:40-0400 Diastolic blood pressure 75 mm[Hg] Nancy Ivan KETTLE LOADER - CNM Work Phone: [facility] 11-26-2022 11:40-0400 Heart rate 82 /min Nancy Ivan KETTLE LOADER - CNM Work Phone: [facility] 11-26-2022 11:40-0400 Systolic blood pressure 116 mm[Hg] Nancy Ivan KETTLE LOADER - CNM Work Phone: [facility] 11-10-2022 13:33-0400 Body mass index (BMI) [Ratio] 30.95 kg/m2 Lainey Meadows-Lindseyhia KETTLE LOADER - CNM Work Phone: [facility] 11-10-2022 13:33-0400 Body weight 84.37 kg Lainey Garciastein-Ptahia KETTLE LOADER - CNM Work Phone: [facility] 11-10-2022 13:33-0400 Diastolic blood pressure 74 mm[Hg] Lainey Meadows-Ptahia KETTLE LOADER - CNM Work Phone: [facility] 11-10-2022 13:33-0400 Heart rate 80 /min Lainey Meadows-Ptahia KETTLE LOADER - CNM Work Phone: [facility] 11-10-2022 13:33-0400 Systolic blood pressure 117 mm[Hg] Lainey Meadows-Ptahia KETTLE LOADER - CNM Work Phone: [facility] 10-29-2022 13:34-0400 Body mass index (BMI) [Ratio] 30.62 kg/m2 Mihaela Chávez CNM Work Phone: [facility] 10-29-2022 13:34-0400 Body weight 83.46 kg Mihaela Chávez CNM Work Phone: [facility] 10-29-2022 13:34-0400 Diastolic blood pressure 70 mm[Hg] Mihaela Chávez CNM Work Phone: [facility] 10-29-2022 13:34-0400 Heart rate 72 /min Mihaela Chávez CNM Work Phone: [facility] 10-29-2022 13:34-0400 Systolic blood pressure 116 mm[Hg] Mihaela Chávez CNM Work Phone: [facility] 10-13-2022 10:58-0400 Body mass index (BMI) [Ratio] 30.12 kg/m2 Lainey Meadows-Ptahia KETTLE LOADER - CNM Work Phone: [facility] 10-13-2022 10:58-0400 Body weight 82.1 kg Lainey Meadows-Ptahia KETTLE LOADER - CNM Work Phone: [facility] 10-13-2022 10:58-0400 Diastolic blood pressure 73 mm[Hg] Lainey Meadows-Ptahia KETTLE LOADER - CNM Work Phone: [facility] 10-13-2022 10:58-0400 Heart rate 85 /min Lainey Meadows-Ptahia KETTLE LOADER - CNM Work Phone: [facility] 10-13-2022 10:58-0400 Systolic blood pressure 116 mm[Hg] Lainey Meadows-Ptahia KETTLE LOADER - CNM Work Phone: [facility] 09-29-2022 11:00-0400 Body mass index (BMI) [Ratio] 30.12 kg/m2 Glenis Grier MD Work Phone: [facility] 09-29-2022 11:00-0400 Body weight 82.1 kg Glenis Grier MD Work Phone: [facility] 09-29-2022 11:00-0400 Diastolic blood pressure 72 mm[Hg] Glenis Grier MD Work Phone: [facility] 09-29-2022 11:00-0400 Systolic blood pressure 118 mm[Hg] Glenis Grier MD Work Phone: [facility] 08-13-2022 10:31-0400 Body mass index (BMI) [Ratio] 28.52 kg/m2 Nancy Ivan KETTLE LOADER - CNM Work Phone: [facility] 08-13-2022 10:31-0400 Body weight 77.75 kg Nancy Ivan KETTLE LOADER - CNM Work Phone: [facility] 08-13-2022 10:31-0400 Diastolic blood pressure 70 mm[Hg] Nancy Ivan KETTLE LOADER - CNM Work Phone: [facility] 08-13-2022 10:31-0400 Heart rate 67 /min Nancy Ivan KETTLE LOADER - CNM Work Phone: [facility] 08-13-2022 10:31-0400 Systolic blood pressure 108 mm[Hg] Nancy Ivan KETTLE LOADER - CNM Work Phone: [facility] 06-21-2022 16:21-0400 Body mass index (BMI) [Ratio] 26.79 kg/m2 Agustina Tapia MD Work Phone: [facility] 06-21-2022 16:21-0400 Body weight 73.03 kg Agustina Tapia MD Work Phone: [facility] 06-21-2022 16:21-0400 Diastolic blood pressure 73 mm[Hg] Agustina Tapia MD Work Phone: [facility] 06-21-2022 16:21-0400 Systolic blood pressure 111 mm[Hg] Agustina Tapia MD Work Phone: [facility] 05-20-2022 13:49-0500 Body mass index (BMI) [Ratio] 26.29 kg/m2 Juana Meyer KETTLE LOADER - CNM Work Phone: [facility] 05-20-2022 13:49-0500 Body weight 71.67 kg Juana Meyer KETTLE LOADER - CNM Work Phone: [facility] 05-20-2022 13:49-0500 Diastolic blood pressure 73 mm[Hg] Juana Meyer KETTLE LOADER - CNM Work Phone: [facility] 05-20-2022 13:49-0500 Heart rate 65 /min Juana Meyer KETTLE LOADER - CNM Work Phone: [facility] 05-20-2022 13:49-0500 Systolic blood pressure 111 mm[Hg] Juana Meyer KETTLE LOADER - CNM Work Phone: [facility] 04-29-2022 13:00-0500 Body height 165.1 cm Hai Britton MD Work Phone: [facility] 04-29-2022 13:00-0500 Body mass index (BMI) [Ratio] 26.96 kg/m2 Hai Britton MD Work Phone: [facility] 04-29-2022 13:00-0500 Body weight 73.48 kg Hai Britton MD Work Phone: [facility] 04-29-2022 13:00-0500 Diastolic blood pressure 72 mm[Hg] Hai Britton MD Work Phone: [facility] 04-29-2022 13:00-0500 Heart rate 76 /min Hai Britton MD Work Phone: [facility] 04-29-2022 13:00-0500 Systolic blood pressure 105 mm[Hg] Hai Britton MD Work Phone: [facility] 06-11-2021 08:20-0500 Body temperature 97.81 [degF] Aries Basilio DO Work Phone: [facility] 06-11-2021 08:20-0500 Diastolic blood pressure 80 mm[Hg] Aries Basilio DO Work Phone: [facility] 06-11-2021 08:20-0500 Heart rate 60 /min Doodle DO [facility] 06-11-2021 08:20-0500 Respiratory rate 18 /min Doodle DO [facility] 06-11-2021 08:20-0500 SaO2% (BldA) [Mass fraction] 100 % Doodle DO Work Phone: [facility] 06-11-2021 08:20-0500 Systolic blood pressure 113 mm[Hg] Doodle DO [facility] 06-08-2021 01:15-0500 Body height 165.1 cm Doodle DO Work Phone: [facility] 06-08-2021 01:15-0500 Body mass index (BMI) [Ratio] 28.96 kg/m2 Sitrion Work Phone: [facility] 06-08-2021 01:15-0500 Body weight 78.93 kg Sitrion Work Phone: [facility] Encounters Encounter Date Encounter Type Care Provider Facility Start: 11-17-2024 End: 11-17-2024 ambulatory Corinna Ceron RN [facility] Clinical Communication Start: 11-17-2024 End: 11-17-2024 [facility] encounter [facility] Start: 06-13-2024 End: 06-13-2024 Patient encounter status Glenis Grier MD Work Phone: [facility] Work Phone: Start: 06-13-2024 End: 06-13-2024 Periodic preventive med est patient 18-39 yrs Glenis Grier MD Work Phone: [facility] Obstetrics and Gynecology [facility] Comment on above: Encounter for gyneco logical examination without abnormal finding (Primary Dx); Screening for cervical cancer Start: 06-13-2024 End: 06-13-2024 ambulatory [facility] Start: 06-13-2024 End: 06-13-2024 Encounter for gynecological examination (general) (routine) without abnormal findings [facility] Start: 12-31-2022 End: 01-03-2023 Evaluation and management of inpatient Flavio Yanez MD Work Phone: [facility] Start: 12-29-2022 End: 12-29-2022 Subsequent hospital visit by physician Agustina Tapia MD Work Phone: [facility]AGE Start: 12-29-2022 ambulatory Corinna wilson RN [facility] Clinical Communication Start: 12-29-2022 Patient encounter procedure Corinna Bustos RN [facility] Clinical Communication Start: 12-28-2022 End: 12-28-2022 Subsequent care visit Nikky Berger APRN - CNM Work Phone: [facility] Comment on above: Antepartum anemia (P rimary Dx); Family history of chromosomal microdeletion; 40 weeks gestation of Start: 12-24-2022 End: 12-24-2022 Subsequent care visit Camelia Quintana KETTLE LOADER - CNM Work Phone: [facility] Comment on above: care, antep artum Start: 12-17-2022 End: 12-17-2022 Subsequent care visit Nancy Ivan KETTLE LOADER - CNM Work Phone: [facility] Comment on above: care, antep artum (Primary Dx) Start: 12-08-2022 End: 12-08-2022 Subsequent care visit Lydia Canales CNP Work Phone: [facility] Obstetrics & Gynecology Comment on above: care, subse quent , third trimester (Primary Dx) Start: 11-26-2022 End: 11-26-2022 Subsequent care visit Nancy Ivan KETTLE LOADER - CNM Work Phone: [facility] Comment on above: care, antep artum (Primary Dx); screening for streptococcus B Start: 11-10-2022 End: 11-10-2022 Subsequent care visit Lainey Bullock KETTLE LOADER - CNM Work Phone: [facility] Comment on above: care in thi rd trimester (Primary Dx) Start: 10-29-2022 End: 10-29-2022 Subsequent care visit Mihaela Chávez CNM Work Phone: [facility] Comment on above: care, antep artum (Primary Dx); 32 weeks gestation of ; Antepartum anemia; Dysuria during , antepartum Start: 10-13-2022 End: 10-13-2022 Subsequent care visit Lainey GarciaLyssa KETTLE LOADER - CNM Work Phone: [facility] Comment on above: care in thi rd trimester (Primary Dx) Start: 10-01-2022 Orders Only Camelia Garcia Capri quiñones KETTLE LOADER - CNM Work Phone: [facility] Start: 09-29-2022 End: 09-29-2022 Subsequent care visit Glenis Grier MD Work Phone: [facility] Comment on above: care, antep artum (Primary Dx); Need for Tdap vaccination Start: 09-02-2022 ambulatory Madelin Galloway RN [facility] Cl inical Communication Start: 09-02-2022 Patient encounter procedure Madelin Galloway RN [facility] Clinical Communication Start: 08-13-2022 End: 08-13-2022 Subsequent care visit Nancy Ivan KETTLE LOADER - CNM Work Phone: [facility] Comment on above: care, antep artum (Primary Dx) Start: 07-13-2022 Telephone encounter Agustina Tapia MD Work Phone: [facility] Comment on above: Referral ([facility] ) Referral ([facility] ); Follow-up (External Referral) Start: 06-21-2022 End: 06-21-2022 Subsequent care visit Agustina Tapia MD Work Phone: [facility] Gy[facility] Comment on above: Encounter for superv ision of other normal in second trimester (Primary Dx); Encounter for screening for malformation; Encounter for screening for cervical length Start: 05-20-2022 End: 05-20-2022 Initial care visit Juana Meyer KETTLE LOADER - CNM Work Phone: [facility] [place] LAB[facility]ER CHEMICAL PROCESSING Comment on above: GA: [id number] Start: 05-16-2022 Telephone encounter Hai montes MD Work Phone: [facility] Start: 04-29-2022 End: 04-29-2022 Office outpatient visit 15 minutes Hai Britton MD Work Phone: [facility] LABORER CHEMICAL PROCESSING Comment on above: with incon clusive viability, single or unspecified fetus (Primary Dx) Start: 04-28-2022 ambulatory Mi Darling RN [facility] Start: 04-28-2022 Patient encounter procedure Mi Darling RN [facility] Start: 04-15-2022 End: 04-15-2022 Office outpatient visit 15 minutes Nikky Celine KETTLE LOADER - CNM Work Phone: [facility] LABORER CHEMICAL PROCESSING Comment on above: with incon clusive viability, single or unspecified fetus (Primary Dx) Start: 08-19-2021 End: 08-19-2021 Subsequent hospital visit by physician Deena Fontana MD Work Phone: [facility] Comment on above: Breast abscess Start: 06-08-2021 End: 06-11-2021 Evaluation and management of inpatient Aries Alas Basilio DO Work Phone: [facility] Comment on above: 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 Start: 08-30-2017 End: 08-31-2017 Patient encounter KEISHA REDDY Fulda [facility] Procedures Date Procedure Procedure Detail Performing Clinician Start: 06-13-2024 Microscopic observat ion [Identifier] in Cervix by Cyto stain Corinna Ceron RN Start: 01-02-2023 Iadna chlamydia trac homatis amplified probe tq Bijal Carmina Kemp DO Work Phone: Start: 01-01-2023 Blood count complete automated Fabi Lopez DO Work Phone: Start: 01-01-2023 Blood typing serologic abo Fabi Lopez DO Work Phone: Start: 12-24-2022 Urnls dip stick/tabl et rgnt non-auto w/o micrscp Camelia S Claypoole KETTLE LOADER - CN Work Phone: Start: 05-20-2022 Antibody screen rbc each serum technique Juana Meyer KETTLE LOADER - CN Work Phone: Start: 05-20-2022 Complete blood count with white cell differential, automated Juana Meyer KETTLE LOADER - CN Work Phone: Start: 05-20-2022 HIV1,2 COMBO ANTIGEN-ANTIBODY SCREEN WITH REFLEX (QUEST) Juana Meyer KETTLE LOADER - CN Work Phone: Start: 05-20-2022 Iaad ia hepatitis b surface antigen Juana Meyer KETTLE LOADER - CN Work Phone: Start: 06-08-2021 Antibody screen Aries Richmond DO Work Phone: Start: 06-08-2021 Blood typing serologic abo Wellington Piña DO Work Phone: Start: 06-08-2021 Comprehensive metabo lic panel Wellington Piña DO Work Phone: Start: 11-13-2020 Microscopic observat ion [Identifier] in Cervix by Cyto stain Aries Richmond DO Work Phone: Plan of Treatment Date Care Activity Detail Author Start: 08-12-2071 RSV Immunization for Adults (1 - 1-dose 75+ series) RSV Immunization for Adults (1 - 1-dose 75+ series) [facility] Start: 2046 Zoster Vaccines (1 of 2) Zoster Vacc steph (1 of 2) [facility] Start: 09-29-2032 DTaP/Tdap/Td Vaccine s (9 - Td or Tdap) DTaP/Tdap/Td Vaccines (9 - Td or Tdap) [facility] Start: 04-24-2031 DTaP/Tdap/Td vaccine (8 - Td or Tdap) DTaP/Tdap/Td vaccine (8 - Td or Tdap) [facility] Start: 04-24-2031 DTaP/Tdap/Td Vaccine s (8 - Td or Tdap) DTaP/Tdap/Td Vaccines (8 - Td or Tdap) [facility] Start: 06-14-2027 Screening for malign ant neoplasm of cervix Pap Smear [facility] Start: 12-03-2024 Influenza vaccination Influenza Vacc ine (#1) [facility] Start: 12-04-2023 COVID-19 Vaccine ( season) COVID-19 Vaccine ( season) [facility] Start: 12-04-2023 Influenza vaccination Influenza Vacc ine (#1) [facility] Start: 11-14-2023 Screening for malign ant neoplasm of cervix Pap smear [facility] Start: 02-11-2023 End: 02-11-2023 ambulatory 02/11/2023 10:30 AM EST Visit [facility] [address] [place], [place] [id number] Nancy Ivan APRN - CNM [address] [place] [address] [facility] Start: 12-28-2022 End: 12-28-2022 Patient encounter procedure 12/28/2022 8:30 AM EDT Routine [facility] [address] [place] [address] Nikky Berger APRN - KARLY [address] [place] [address] [facility] Start: 12-24-2022 End: 12-24-2022 Patient encounter procedure 12/24/2022 1:00 PM EDT Routine [facility] [address] [place] [phone] Camelia Quintana APRN - CN [address] [place] [address] [facility] Start: 12-17-2022 End: 12-17-2022 Patient encounter procedure 12/17/2022 11:00 AM EDT Routine [facility] [address] [place] [address] Nancy Ivan APRN [facility] [address] [place] [address] [facility] Start: 12-08-2022 End: 12-08-2022 Patient encounter procedure 12/08/2022 3:30 PM EDT Routine [facility] [address] [place] [phone] Lydia Banks, KETTLE LOADER - [facility] [address] [place] [address] [facility] Start: 12-03-2022 Influenza vaccination Influenza Vacc ine (#1) [facility] Start: 12-01-2022 End: 12-01-2022 Patient encounter procedure 12/01/2022 12:15 PM EDT Routine [facility] [address] [place] [address] Alexia Montalvo MD [address] [place] [address] [facility] Start: 11-26-2022 End: 11-26-2022 Patient encounter procedure 11/26/2022 11:30 AM EDT Routine [facility] [address] [place] [address] Nancy Ivan APRN - DHARAM [address] [place] [address] [facility] Start: 11-10-2022 End: 11-10-2022 Patient encounter procedure 11/10/2022 1:30 PM EDT Routine [facility] [address] [place] [phone] Lainey Bullock APRN - CNM [address] [place] [address] [facility] Start: 10-29-2022 End: 10-29-2022 Patient encounter procedure 10/29/2022 1:30 PM EDT Routine [facility] [address] [place] [address] Mihaela Chávez, [facility] [address] [place] [address] [facility] Start: 10-13-2022 End: 10-13-2022 Patient encounter procedure 10/13/2022 10:45 AM EDT Routine [facility] [address] [place] [phone] Lainey Bullock APRN - CNShantanu [address] [place] [address] [facility] Start: 10-11-2022 End: 10-11-2022 Patient encounter procedure 10/11/2022 11:00 AM EDT Routine [facility] [address] [place] [address] Layne Eng APRN - CNM [address] [place] [address] [facility] Start: 09-10-2022 End: 09-10-2022 Patient encounter procedure 09/10/2022 Routine Obstetrics and Gynecology Mihaela Chávez, CNM [address] [place] [address] [facility] Start: 07-28-2022 End: 07-28-2022 Patient encounter procedure 07/28/2022 Routine Obstetrics and Gynecology Qamar Ellsworth MD [address] [place] [address] [facility] Start: 07-28-2022 End: 07-28-2022 Professional / ancillary services management 07/28/2022 Ancillary Procedure Obstetrics and Gynecology [facility] Start: 05-20-2022 End: 05-20-2023 ABO and Rh group panel - Blood ABO/Rh Lab Routine care, subsequent , unspecified trimester Expected: 05/20/2022 (Approximate), Expires: 05/20/2023 [facility] Comment on above: Expected: 05/20/2022 (Approximate), Expires: 05/20/2023 Start: 05-20-2022 End: 05-20-2023 Antibody identification Antibody identification Lab Routine care, subsequent , unspecified trimester Expected: 05/20/2022 (Approximate), Expires: 05/20/2023 [facility] Comment on above: Expected: 05/20/2022 (Approximate), Expires: 05/20/2023 Start: 05-20-2022 End: 05-20-2023 C. trachomatis, N. gonorhoeae RNA C. trachomatis, N. gonorhoeae RNA Lab Routine care, subsequent , unspecified trimester Expected: 05/20/2022 (Approximate), Expires: 05/20/2023 [facility] Comment on above: Expected: 05/20/2022 (Approximate), Expires: 05/20/2023 Start: 05-20-2022 End: 05-20-2023 HIV 1+2 Ab+HIV1 p24 Ag [Presence] in Serum or Plasma by Immunoassay HIV-1 and HIV-2 Antigen-Antibody Screen Lab Routine care, subsequent , unspecified trimester Expected: 05/20/2022 (Approximate), Expires: 05/20/2023 [facility] Comment on above: Expected: 05/20/2022 (Approximate), Expires: 05/20/2023 Start: 05-19-2022 End: 05-19-2022 Patient encounter procedure 05/19/2022 Office Visit Obstetrics and Gynecology Adrian Day MD [address] [place] [address] [facility] Start: 05-19-2022 End: 05-19-2022 Professional / ancillary services management 05/19/2022 Ancillary Procedure Obstetrics and Gynecology [facility] Start: 05-14-2022 End: 05-14-2022 Patient encounter procedure 05/14/2022 Office Visit Obstetrics and Gynecology Tonie Hartman, KETTLE LOADER - [employer]PORATE [employer]VEL COUNSELOR [address] [facility] [address] [place] [address] [facility] LABORER CHEMICAL PROCESSING Start: 05-14-2022 End: 05-14-2022 Professional / ancillary services management 05/14/2022 Ancillary Procedure Obstetrics and Gynecology [facility] LABORER CHEMICAL PROCESSING Start: 04-29-2022 End: 04-29-2023 hCG, quantitative, hCG, quantitative, Lab Routine with inconclusive viability, single or unspecified fetus Expected: 04/29/2022 (Approximate), Expires: 04/29/2023 [facility] Work Phone: Comment on above: Expected: 04/29/2022 (Approximate), Expires: 04/29/2023 Start: 04-15-2022 End: 04-15-2023 hCG, quantitative, hCG, quantitative, Lab Routine with inconclusive viability, single or unspecified fetus Expected: 04/15/2022 (Approximate), Expires: 04/15/2023 [facility] Work Phone: Comment on above: Expected: 04/15/2022 (Approximate), Expires: 04/15/2023 Start: 04-15-2022 End: 04-15-2023 US Pelvis transvaginal US OB transvaginal Imaging Routine with inconclusive viability, single or unspecified fetus Expected: 04/15/2022, Expires: 04/15/2023 [facility] Comment on above: Expected: 04/15/2022 , Expires: 04/15/2023 Start: 11-13-2021 Screening for Chlamy tati trachomatis Chlamydia screen [facility] Start: 08-21-2021 End: 08-21-2021 Patient encounter procedure 08/21/2021 Office Visit Obstetrics and Gynecology Glenis Grier MD [address] [place] [address] [address] [place] [address] [facility] LABORER CHEMICAL PROCESSING Start: 08-21-2021 End: 08-21-2021 Patient encounter procedure 08/21/2021 Office Visit Breast Clinic / Breast Center Deena Fontana MD [address] [place] [address] [address] [place] [address] [facility] Start: 08-20-2021 End: 08-20-2021 Patient encounter procedure 08/20/2021 Procedure visit Obstetrics and Gynecology [facility] LABORER CHEMICAL PROCESSING Start: 07-02-2020 COVID-19 Vaccine (3 - Booster for Moderna series) COVID-19 Vaccine (3 - Booster for Moderna series) [facility] Start: 07-02-2020 COVID-19 Vaccine (3 - Moderna series) COVID-19 Vaccine (3 - Moderna series) [facility] Start: 2008 Depression Monitoring Depression Mon itoring [facility] Start: 2008 Depression Screen Depression Screen [facility] Start: 2008 Depression Screening Depression Scre ening [facility] Start: 08-12-2007 HPV vaccine (1 - 2-d ose series) HPV vaccine (1 - 2-dose series) [facility] Start: 08-12-2007 HPV Vaccines (1 - 2- dose series) HPV Vaccines (1 - 2-dose series) [facility] Start: 09-11-2001 Varicella vaccination Varicell a Vaccines (2 of 2 - 2-dose childhood series) [facility] Start: 2001 COVID-19 Vaccine (1) COVID-19 Vaccin e (1) [facility] Start: 2000 Varicella vaccine (2 of 2 - 2-dose childhood series) Varicella vaccine (2 of 2 - 2-dose childhood series) [facility] Bacteria identified in Urine by Culture Urine culture Microbiology Routine care, antepartum Dysuria during , antepartum Ordered: 10/29/2022 [facility] Comment on above: Ordered: 10/29/2022 Bacteria identified in Urine by Culture Urine culture Microbiology Routine care, subsequent , unspecified trimester Ordered: 05/20/2022 [facility] Work Phone: Comment on above: Ordered: 05/20/2022 CBC panel - Blood by Automated count CBC Lab Routine care, antepartum Antepartum anemia Ordered: 10/29/2022 [facility] Work Phone: Comment on above: Ordered: 10/29/2022 Cytology Cervical or vaginal smear or scraping study Pap Smear Pathology and Cytology Routine Screening for cervical cancer Ordered: 06/13/2024 [facility] Work Phone: Comment on above: Ordered: 06/13/2024 Ferritin [Mass/volum e] in Serum or Plasma Ferritin Lab Routine care, antepartum Ordered: 09/29/2022 [facility] Work Phone: Comment on above: Ordered: 09/29/2022 Streptococcus agalac tiae DNA [Presence] in Unspecified specimen by GALINA with probe detection Group B Strep Screen PCR Microbiology Routine screening for streptococcus B Ordered: 11/26/2022 [employer] Work Phone: Comment on above: Ordered: 11/26/2022 End: 08-19-2021 US Breast Limited Left [email or web address] Work Phone: Comment on above: 1 Occurrences starti ng 08/19/2021 until 08/19/2021 US for US OB 14+ weeks anatomy scan Imaging Routine Encounter for screening for malformation Encounter for screening for cervical length Ordered: 06/21/2022 [employer] Comment on above: Ordered: 06/21/2022 US Pelvis transvaginal US OB tra nsvaginal Imaging Routine Encounter for screening for malformation Encounter for screening for cervical length Ordered: 06/21/2022 [employer] Work Phone: Comment on above: Ordered: 06/21/2022 Immunizations Immunization Date Immunization Notes Care Provider Fa [facility] 01-03-2023 Influenza, injectabl e, Madin Jessica Canine Kidney, preservative free, quadrivalent Flavio Yanez MD Work Phone: [facility] 01-03-2023 influenza virus vaccine, unspecified formulation Glenis Grier MD Work Phone: [facility] 09-29-2022 tetanus toxoid, reduced diphtheria toxoid, and acellular pertussis vaccine, adsorbed Glenis Grier MD Work Phone: [facility] 02-12-2022 influenza virus vaccine, unspecified formulation Hai Britton MD Work Phone: [facility] 06-09-2021 diphtheria, tetanus toxoids and acellular pertussis vaccine, unspecified formulation Aries Basilio DO Work Phone: [email or web address] Work Phone: 06-09-2021 measles, mumps and rubella virus vaccine Aries Basilio DO Work Phone: [email or web address] Work Phone: 04-24-2021 tetanus toxoid, reduced diphtheria toxoid, and acellular pertussis vaccine, adsorbed Aries Basilio DO Work Phone: [facility] 11-12-1997 varicella virus vaccine Agustina Tapia MD Work Phone: [employer] NEGATED: Highlighted row has not occurred!01-03-2023 measles, mumps and rubella virus vaccine Flavio Yanez MD Work Phone: [employer] Comment on above: Deferred: No longer needed NEGATED: Highlighted row has not occurred!01-03-2023 tetanus toxoid, reduced diphtheria toxoid, and acellular pertussis vaccine, adsorbed Flavio Yanez MD Work Phone: [employer] Comment on above: Deferred: No longer needed Payers Date Payer Category Payer Paddy gale[employer] - O [employer] [id number] 2022 Unknown [employer] [id number] 2022-Present [id number] Commercial [id number] 2022 Unknown [id number] 2021 Private Health Insurance [id number] 2020 Unknown [employer] M [employer] PPO [facility] [id number] 2020-Present [phone] [address] [place] [address] [id number] Social History Date Type Detail Facility Start: 10-20-2020 Tobacco smoking status NHIS Never smoked tobacco [facility] Start: 10-20-2020 Tobacco use and exposure Smokeless tobacco non-user [email or web address] Work Phone: Start: 06-09-2021 End: 04-15-2022 Alcohol intake Current drinker of alcohol (finding) [email or web address] Work Phone: Start: 1995 Sex Assigned At Female [facility] Start: 08-09-2021 End: 12-17-2022 Exposure to SARS-CoV-2 (event) [facility] sure [facility] Start: 07-08-2021 History SDOH Alcohol Comment occ [email or web address] Work Phone: Start: 05-21-2022 End: 06-13-2024 Alcohol intake Ex-drinker (finding) [facility] Start: 04-01-2022 [facility] Start: 09-29-2022 End: 06-10-2024 History of Social function [facility] Start: 09-29-2022 End: 06-10-2024 Tobacco use panel [facility] Start: 01-21-2022 Sexual orientation Heterosexual (finding) [facility] In the past 12 month s, has lack of transportation kept you from medical appointments or from getting medications? No [facility] In the past 12 month s, was there a time when you were not able to pay the mortgage or rent on time? No [facility] Do you belong to any clubs or organizations such as yarsanism groups, unions, fraternal or athletic groups, or school groups? Yes [facility] Are you now , , , , never or living with a partner? [facility] How often to you hav e a drink containing alcohol? Never [facility] Do you feel stress - tense, restless, nervous, or anxious, or unable to sleep at night because your mind is troubled all the time - these days [OSQ] Not at all [facility] (I/We) worried wheth er (my/our) food would run out before (I/we) got money to buy more. Never true [facility] Start: 11-02-2021 Sex Female (finding) [facility] Start: 05-19-2024 Gender identity Identifies as female gender (finding) [facility] Clinical Notes 01-14-2021 to 11-17-2024 Telephone Encounter - Corinna Ceron RN - 11/17/2024 4:28 PM EDTTelephone Encounter - Corinna Ceron RN - 11/17/2024 4:28 PM Rosario Grier MD - 06/13/2024 2:15 PM EDTDischarge Instructions Note Date & Type Note Facility 11-17-2024 Telephone encounter Note S: Patient spoke with [facility] nurse regarding rash B: Onset of symptoms/concern yesterday A: states is currently being treated for a possible staph / MRSA infection on her skin. States started as a bug bite. Started on oral clindamycin yesterday (first dose about 3 pm) to treat. Pt states she is now developing more spots, not blisters but more like a pinpoint rash to her abdomen, chest and under arm. Nothing to hands, legs, or face. States the rash started prior to her starting the clindamycin. No current fevers/ chills, shortness of breath. Did feel a little more lethargic today when first woke but has felt better as the day has gone on. Rash is itchy, no pain. R: ECW reviewed, noted pt is also currently . Offered to schedule an after-hours clinic appointment for tomorrow. Pt states she works 7a-7p, will call her work and then call back to schedule. Pt called back in, pt scheduled for 11/18 at 930 at the [place] after-hours clinic at [facility]. Pt instructed to arrive 15 minutes early, bring ID, insurance card and current med list. Pt given address and location of after hours clinic. Patient understands care advice. No further needs at this time. Patient instructed to call back with new or worsening symptoms. Reason for Disposition Protocols used: Rash or Redness - [id number] [facility] 11-17-2024 Miscellaneous Notes S: Patient spoke with [facility] nurse regarding rash B: Onset of symptoms/concern yesterday A: states is currently being treated for a possible staph / MRSA infection on her skin. States started as a bug bite. Started on oral clindamycin yesterday (first dose about 3 pm) to treat. Pt states she is now developing more spots, not blisters but more like a pinpoint rash to her abdomen, chest and under arm. Nothing to hands, legs, or face. States the rash started prior to her starting the clindamycin. No current fevers/ chills, shortness of breath. Did feel a little more lethargic today when first woke but has felt better as the day has gone on. Rash is itchy, no pain. R: ECW reviewed, noted pt is also currently . Offered to schedule an after-hours clinic appointment for tomorrow. Pt states she works 7a-7p, will call her work and then call back to schedule. Pt called back in, pt scheduled for 11/18 at 930 at the [place] after-hours clinic at [facility]. Pt instructed to arrive 15 minutes early, bring ID, insurance card and current med list. Pt given address and location of after hours clinic. Patient understands care advice. No further needs at this time. Patient instructed to call back with new or worsening symptoms. Reason for Disposition Protocols used: Rash or Redness - [id number] documented in this encounter [facility] 06-13-2024 History of Presen t illness Narrative Macy Flores 06/13/2024 28 y.o. Primary Care Physician: Bijal Mo Chief Complaint Patient presents with Annual Exam HPI : Macy Flores is a 28 y.o. female here for annual exam. ____ Gynecologic History: Patient's last menstrual period was 05/18/2024 (exact date). Menses are regular. Menses occur every regular every 28-32 days. Flow is moderate Intermenstrual bleeding: no Dysmenorrhea:none Sexually Active: Yes Dyspareunia: No Contraception: condoms Thinking of trying for another baby later this year Preventative Health Testing: Date of Last Pap Smear: neg pap 11/2020 Abnormal Pap Smear History: none OB History Para Term AB Living 2 2 2 0 0 2 SAB IAB Ectopic Multiple Live Births 0 0 0 0 2 # Outcome Date GA Lbr Macario/2nd Weight Sex Type Anes PTL Lv 2 Term 01/01/23 41w2d 8 lb 9.7 oz (3.905 kg) F Vag-Spont EPI N ROHIT Complications: Meconium Name: Bereket Flores Apgar1: 8 Apgar5: 9 1 Term 06/09/21 39w2d 8 lb (3.629 kg) M Vag-Spont ROHIT Comments: Induced for possible Cat II Name: ARTIE FLORES Apgar1: 8 Apgar5: 9 Past Medical History: Diagnosis Date Seasonal allergies Past Surgical History: Procedure Laterality Date US ASP BREAST CYST LEFT (HISTORICAL) Left 07/09/2021 US BREAST CYST ASPIRATION LEFT US ASP BREAST CYST LEFT (HISTORICAL) Left 08/21/2021 US BREAST CYST ASPIRATION LEFT WISDOM TOOTH EXTRACTION Family History Problem Relation Name Age of Onset Other (ms) Paternal Grandmother Heart disease Maternal Grandfather MEDICATIONS: No current outpatient medications on file. No current facility-administered medications for this visit. ALLERGIES: Allergies as of 06/13/2024 (No Known Allergies) REVIEW OF SYSTEMS: CONSTIUTIONAL: No weight change or fatigue. No fever or chills. No changes in appetite. CV: No chest pain, palpitations, or syncope. RESPIRATORY: No SOB, cough, or wheezing. BREAST: No breast abnormalities or lumps. GI: No nausea, vomiting, diarrhea, constipation, bloating or bowel changes. No blood or mucous with bowel movements or melena. : No dysuria, frequency, hesitancy, urgency. No urinary incontinence. No vaginal discharge, odor, or itch. No dyspareunia. NEURO: No weakness or sensory changes MUSCULOSKELETAL: No back pain or arthralgias. HEME and LYMPH : No lymphoma or abnormal bleeding history PHYSICAL EXAM: Vitals: 06/13/24 1403 BP: 109/73 Pulse: 52 Weight: 154 lb (69.9 kg) Height: 5' 5 (1.651 m) Body mass index is 25.63 kg/m . GENERAL EXAM CONSTITUTIONAL: no acute distress CARDIOVASCULAR: normal rate, no edema LUNGS: normal effort ABDOMEN: soft, non-tender, non-distended NEUROLOGICAL: no gross motor or sensory deficits noted MUSCULOSKETAL: normal gait, no cyanosis PSYCHIATRIC: normal mood and affect, A&O x3 PRODUCTION STATISTICAL CLERK EXAM: BREASTS: normal, no masses, tenderness or skin changes EXTERNAL GENITALIA: normal female structures VAGINA: normal ruggae, no lesions CERVIX: no lesions, no cervical motion tenderness, normal appearance UTERUS: normal mobility, nontender, normal size, shape and consistency ADNEXA: normal, non tender no masses URETHRA: normal. nontender BLADDER: non tender PELVIC SUPPORT DEFECTS: normal support of vagina, uterus, and bladder ANUS/PERINEUM: no hemorrhoids, masses or warts noted ASSESSMENT/PLAN: Macy was seen today for annual exam. Diagnoses and all orders for this visit: Encounter for gynecological examination without abnormal finding (Primary) Screening for cervical cancer - Pap Smear Follow up in about 1 year (around 06/13/2025) for annual. Discussed pap guidelines and routine gynecologic preventative care/screening. Self breast exam discussed. Weight management through healthy diet and regular exercise reviewed. Advised use of MVI and vit D supplementation, calcium through diet if able. Routine health maintenance per patient's PCP as well. Glenis Grier M.D. 06/13/2024 at 2:14 PM (Electronically Signed) documented in this encounter [facility] 01-03-2023 History of Presen t illness Narrative Pt watched discharge teaching video. Reviewed Guide to Caring for Yourself, discharge instructions and home medication list. Encouraged 1) use of the post- warning signs magnet 2) use of the green armband if pre-e hx, and 3) and after discharge to watch for these signs and symptoms: Fever - Oral temperature greater than 100.4 degrees Fahrenheit Foul-smelling vaginal discharge Headache unrelieved by pain medication Difficulty urinating Breasts reddened, hard, hot to the touch Nipple discharge which is foul-smelling or contains pus Increased pain at the site of the laceration Sudden increased vaginal bleeding, soaking a large pad front to back in 1 hour Passing any blood clots bigger than a large egg Difficulty breathing with or without chest pain New calf pain especially if only on one side Unrelieved feelings of inability to cope Patient states understanding and denies questions. Patient discharged with infant daughter. Patient walked independently, FOB carrying infant daughter in carrier. Images from the original note were not included. VAGINAL DELIVERY POST DAY # 2 Macy Flores, 27 y.o. This patient was seen & examined today. Her was complicated by: Patient Active Problem List Diagnosis care, antepartum Family history of chromosomal microdeletion Antepartum anemia 41 weeks gestation of Today she is doing well without any chief complaint. Her lochia is light. She denies Headache, Chest Pain, Vision Changes, and Shortness of Breath. She is ambulating well. She is tolerating solids. Vital Signs: Vitals: 01/01/23 1805 01/01/23 2121 01/02/23 1008 01/02/232000 BP: 116/80 115/68 112/70 116/75 BP Location: Right arm Right arm Right arm Right arm Patient Position: Sitting Sitting Sitting Sitting Pulse: 60 53 56 53 Resp: 16 16 16 18 Temp: 36.1 C (97 F) 36.1 C (97 F) 36.4 C (97.6 F) 36.8 C (98.3 F) TempSrc: Temporal Temporal Temporal Oral SpO2: 97% 96% 98% 98% Weight: Height: Physical Exam: GENERAL APPEARANCE: alert, well appearing, in no apparent distress ABDOMEN : benign non-tender, without masses or organomegaly palpable EXTREMITIES: no redness or tenderness in the calves or thighs, no edema NEUROLOGIC: alert, oriented, normal speech, no focal findings or movement disorder noted UTERUS : normal size, well involuted, firm, non-tender Lab: Lab Results Component Value Date HGB 13.8 01/01/2023 Lab Results Component Value Date HCT 40.3 01/01/2023 O Antibody Screen: No results found for: LABANTI No results found for: RUBELLAIGG LABOR DELIVERY ??? SCD's ONLY (labor through ambulation) SCD's PLUS Prophylactic Anticoagulation until discharge SCD's PLUS Prophylactic Anticoagulation for 6 weeks SCD's PLUS Therapeutic Anticoagulation for 6 weeks Vaginal Delivery [] BMI ? 40 kg/m2 Delivery All patients Vaginal Delivery [] BMI ? 40 kg/m2 AND [] Antepartum hospitalization ? 72 hours within the past month Delivery 1 Major Risk Factor: [] BMI ? 35 kg/m2 [] Low Risk Thrombophilia [] PPH+RBCs, IR, or operation [] Infection+Antibiotics [] Antepartum hospitalization ? 72 hours within the past month [] PMH: Sickle Cell, SLE, Cardiac Dz, Active IBD, Active Cancer, Nephrotic Syndrome OR 2 Minor Risk Factors: [] Multiple gestation [] Age > 40 [] PPH ? 1,000cc [] (+)FMH of VTE [] Smoker [] Preeclampsia [] BMI ? 40 kg/m2 AND [] Low Risk Thrombophilia OR ANY OF THE FOLLOWING: [] High Risk Thrombophilia without prior VTE [] Low Risk Thrombophilia with (+)FMH of VTE [] Any single prior VTE ANY OF THE FOLLOWING: [] Already on LMWH/UFH [] Multiple prior VTE [] High Risk Thrombophilia with prior VTE Low Risk Thrombophilia: FVL (heterozygous), Prothrombin (heterozygous), Protein C, Protein S High Risk Thrombophilia: FVL (homozygous), Prothrombin (homozygous), FVL+Prothrombin (heterozygous), Antithrombin III, APLS Assessment/Plan: Macy Flores is PPD # 2 s/p Care - Doing well, VSS - Female - breast feeding - Contraception: Per Private Attending - Encourage ambulation - VTE Prophylaxis: Not Indicated Disposition: Continue current care. Based on my clinical assessment, this patient is safe for self discharge (does not need transport by wheelchair) if she so chooses. Provider's Name: MD Sophie Carrington, 01/03/2023, 6:22 AM Associated attestation - Bijal Kemp DO - 01/03/2023 10:17 AM EDT Hospital Care (Independent): I independently saw and evaluated the patient. I agree with the findings and plan of care as documented in the resident's note. Patient doing well this morning and meeting all milestones. She declined contraception. 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 Anticipate discharge for patient today. Nutrition rescreen completed. Patient assigned a level 1. LIEN Tuttle Images from the original note were not included. VAGINAL DELIVERY POST DAY # 1 Macy Flores, 27 y.o. This patient was seen & examined today. Her was complicated by: Patient Active Problem List Diagnosis care, antepartum Family history of chromosomal microdeletion Antepartum anemia 41 weeks gestation of Today she is doing well without any chief complaint. Her lochia is light. She denies Headache, Chest Pain, Vision Changes, and Shortness of Breath. She is ambulating well. She is tolerating solids. Vital Signs: Vitals: 01/01/23 1410 01/01/23 1425 01/01/23 1805 01/01/23 2121 BP: 105/54 97/59 116/80 115/68 BP Location: Right arm Right arm Patient Position: Sitting Sitting Pulse: 51 (!) 44 60 53 Resp: 16 16 Temp: 36.1 C (97 F) 36.1 C (97 F) TempSrc: Temporal Temporal SpO2: 97% 96% Weight: Height: Physical Exam: GENERAL APPEARANCE: alert, well appearing, in no apparent distress ABDOMEN : benign non-tender, without masses or organomegaly palpable EXTREMITIES: no redness or tenderness in the calves or thighs, trace edema NEUROLOGIC: alert, oriented, normal speech, no focal findings or movement disorder noted UTERUS : normal size, well involuted, firm, non-tender : L labial swelling >R labia, otherwise nontender, no change in swelling per RN who was present for exam Lab: Lab Results Component Value Date HGB 13.8 01/01/2023 Lab Results Component Value Date HCT 40.3 01/01/2023 O Antibody Screen: No results found for: LABANTI No results found for: RUBELLAIGG LABOR DELIVERY ??? SCD's ONLY (labor through ambulation) SCD's PLUS Prophylactic Anticoagulation until discharge SCD's PLUS Prophylactic Anticoagulation for 6 weeks SCD's PLUS Therapeutic Anticoagulation for 6 weeks Vaginal Delivery [] BMI ? 40 kg/m2 Delivery All patients Vaginal Delivery [] BMI ? 40 kg/m2 AND [] Antepartum hospitalization ? 72 hours within the past month Delivery 1 Major Risk Factor: [] BMI ? 35 kg/m2 [] Low Risk Thrombophilia [] PPH+RBCs, IR, or operation [] Infection+Antibiotics [] Antepartum hospitalization ? 72 hours within the past month [] PMH: Sickle Cell, SLE, Cardiac Dz, Active IBD, Active Cancer, Nephrotic Syndrome OR 2 Minor Risk Factors: [] Multiple gestation [] Age > 40 [] PPH ? 1,000cc [] (+)FMH of VTE [] Smoker [] Preeclampsia [] BMI ? 40 kg/m2 AND [] Low Risk Thrombophilia OR ANY OF THE FOLLOWING: [] High Risk Thrombophilia without prior VTE [] Low Risk Thrombophilia with (+)FMH of VTE [] Any single prior VTE ANY OF THE FOLLOWING: [] Already on LMWH/UFH [] Multiple prior VTE [] High Risk Thrombophilia with prior VTE Low Risk Thrombophilia: FVL (heterozygous), Prothrombin (heterozygous), Protein C, Protein S High Risk Thrombophilia: FVL (homozygous), Prothrombin (homozygous), FVL+Prothrombin (heterozygous), Antithrombin III, APLS Assessment/Plan: Macy Flores is PPD # 1 s/p Care - Doing well, VSS - Female - breast feeding - Contraception: Per Private Attending - Encourage ambulation - VTE Prophylaxis: Not Indicated Hx Anemia - Hb 13.8 on admission Disposition: Continue current care. Based on my clinical assessment, this patient is safe for self discharge (does not need transport by wheelchair) if she so chooses. Provider's Name: MD Lilia Carrington MD 01/02/2023, 5:42 AM Associated attestation - Bijal Kemp DO - 01/02/2023 9:42 AM EDT Hospital Care (Independent): I independently saw and evaluated the patient. I agree with the findings and plan of care as documented in the resident's note. Patient doing well this morning. Declines contraception . Hematoma observed to left labia. Dr Kevin in and evaluated. Pt denies pain. Pericare provided. Images from the original note were not included. Labor Progress Note Date: 01/01/2023 Time: 1:25 AM Subjective: Macy Flores is a 27 y.o. female at 41w2d admitted for IOL-LT Complications: FamHx Chromosomal Microdeletion Anemia SVE on admission: /-3 GBS: []Pos [x]Neg []Unknown Cx:unchanged FHP: defer FHT: Cat II [place]:q3-5min A/P: 1. IOL-LT. FHT Cat II for late decelerations. FHT overall reassuring with baseline 150s, moderate variability, spontaneous accelerations. 60cc FB placed at this time. Bps NT. Low dose pitocin ordered, plan to start when able titrating per protocol. Cx:defer FHP:defer FHT: Cat I [place]:q3-4min A/P: 1. IOL-LT. Late note due to patient care. FHT Cat I with baseline 110s, moderate variability, spontaneous accelerations, and no decelerations. Notified by RN that FB is out at 0320. Pitocin at 2cc/hr, plan to titrate up when able per protocol. Bps normotensive. CCM. Cx:defer FHP: defer FHT: Cat I [place]:q2min A/P: 1. IOL-LT FHT Cat I with baseline 110s, moderate variability and spontaneous accelerations present, early decelerations noted. Patient requesting epidural at this time. Pitocin @ 4 mL/hr, continue to titrate per protocol. BP most recently normotensive. Cx:0 FHP: defer FHT: Cat II [place]:q2-3min A/P: 1. IOL_LT FHR Cat II for rare late decelerations. Overall remains reassuring with a baseline of 120's, moderate variability, acceleration present. Pitocin at 4cc/hr. Continue to titrate per protocol. BP's normotensive. Continue to monitor. CCM. SVE per Dr. Kevin . Patient complete and pushing. Dr. Yanez bedside with Dr. Kevin. Cat II for variable decels with pushing, good return to baseline, maintains moderate variability in between pushes. Pit @4cc/hr. Will continue to monitor closely. ANNETTE PARRA DO 01/01/2023 12:25 PM . See del note. documented in this encounter [facility] 01-03-2023 Miscellaneous Notes Did not observe another latch today. Mom feels baby's latch has improved. Nipple damage is improving. Continues to use silverettes. Reminded mom of support group. Output parameters discussed. Home visit information given to patient on [facility]'s Mother -baby visit. Patient is independent and has insurance. She is prepared with her baby supplies. Denies any needs for housing, transportation or food. Discussion on the A. B. C's of safe sleep. Always place your baby on his or her back to sleep, use a firm sleep surface and your baby should not sleep in an adult bed, on a couch or chair. Keep soft objects, toys and loose bedding out of your baby's sleep area. Reviewed post depression. It is common to have blues. This is a normal response to many of the hormonal changes, stress and lack of sleep that go with raising a and physically recovering from the . Don't hesitate to talk to your provider with any concerns. There are resources in your home going booklet. To help prevent germs from spreading to you and your baby, make sure everyone washes their hands before they handle your . Avoid crowds, and keep away from sick people, anyone who is sick with a cough or fever, including family members. To be discharged to home. Denies any concerns at this time. Date:01/02/2023 Name: Macy Flores :1995 [facility] Information- [facility] Patient Information Primary Caregiver: Self Accompanied by/Relationship: S/O;Family Marital Status: Support System: SO/Family Buddhism/Cultural Factors: none Activities of Daily Living Communication: See demographics Living Arrangements Current Residence: Private residence Lives With: S/O; Family Support System: S/O; Family Income Information Income Source: Employed Financial Resource Strain How hard is it for you to pay for the very basics like food, housing, medical care and heating? N/A Housing Stability In the last 12 months, was there a time when you did not have a steady place to sleep or slept in a fdc (including now)? No Transportation Needs Has the lack of Transportation kept you from medical appointments? No In the past 12 months, has the lack of transportation kept you from meetings, work, or from getting things needed for daily living? No Food Insecurity Within the past 12 months, have you worried that your food would run out before you got the money to buy more? No Stress Do you feel stress - tense, restless, nervous, or anxious, or unable to sleep at night because you mind is troubled all the time? Mood stable Referral To Financial Resources: N/A Community Resources: Admission folder given upon admission to PP Unit Social Work: N/A CLP: N/A Medical Information- 27 year old admitted for induction of labor for late term. 2 Para 1. Vaginal delivery. Discharge Plan Home or Community Resources: Admission folder given upon admission to PP unit Equipment: N/A Education Given: Nandini Education- ( safe sleep, depression, post warning signs) Additional Information: Patient is independent and has insurance. Mental Health Services: Resources in discharge folder Equipment: Developmental Delay: N/A Children's Services: N/A Initial visit with mom. C/o painful latch. EP for her first baby d/t tongue/lip tie, sore nipples and latch did not improve with frenotomy. Has a hx of oversupply and fed baby JONATHAN for 1 yr. Observed infant latch, good position and alignment. Mom c/o sore nipples, unable to tolerate continues suckling. Assisted her with many positions, laid back position was the least uncomfortable and baby swallowed well. Both nipples have compression stripes, using silverettes for comfort. Oral exam was WNL, labial frenulum is thick but lip flanges well. Patient has a hx with a pediatric dentist that she may f/u for further exam. Reviewed feeding patterns, feeding cues, signs of transfer. Rx given for personal pump, mom looking for Spectra S-9. Shown section of Taking Care of Yourself and Baby' Booklet. Reviewed baby-led, cue based feedings (8-12x/day), how to know baby is getting enough, output parameters and milk storage guidelines. Discussed engorgement, plugged ducts and mastitis. Patient encouraged to seek help [facility] for any concerns. phone number and [facility] information shared from booklet. Mom voiced understanding. No further questions. Images from the original note were not included. Vaginal Delivery Note Department of Obstetrics and Gynecology Patient: Macy Flores : 1995 Date of delivery: 01/01/2023 Pre-operative Diagnosis: Macy Flores at 41w2d 1. IOL-LT 2. Anemia Post-operative Diagnosis: Live Born female Delivering Outside Sales Engineer & Prosthetic Dentist(s): Dr. Yanez; Dr. Kevin Information: Information for the patient's : Tiffanie Flores [[id number]] Information for the patient's : Tiffanie Flores [[id number]] Description: normal Meconium Noted: Yes: thick Anesthesia: epidural anesthesia Complications: None Application and Delivery: Macy Flores at 41w2d admitted for IOL-LT. Her labor course uncomplicated, she was induced with a zapata balloon, pitocin, AROM. She made change to complete and began to push She was known to be GBS negative and received no prophylaxis. After pushing with contractions the head delivered Cephalic, right occiput anterior over an intact perineum. A nuchal cord was present and reduced. The anterior, then posterior shoulder delivered easily and atraumatically followed by the rest of the . The was placed on the maternal abdomen and attended by the RN for evaluation . The was stimulated and dried. The cord was clamped and cut. The delivery of the placenta was spontaneous and appeared intact. Pitocin was started. The vagina was swept of all clots and debris. The perineum and vagina were evaluated. A midline 2nd degree laceration was identified and repaied in standard fashion. All counts were correct. Mother and baby tolerated procedure well. No uterotonics were required during delivery. EBL: 150ml QBL: VTE Prophylaxis: Not Indicated LABOR DELIVERY ??? SCD's ONLY (labor through ambulation) SCD's PLUS Prophylactic Anticoagulation until discharge SCD's PLUS Prophylactic Anticoagulation for 6 weeks SCD's PLUS Therapeutic Anticoagulation for 6 weeks Vaginal Delivery [] BMI ? 40 kg/m2 Delivery All patients Vaginal Delivery [] BMI ? 40 kg/m2 AND [] Antepartum hospitalization ? 72 hours within the past month Delivery 1 Major Risk Factor: [] BMI ? 35 kg/m2 [] Low Risk Thrombophilia [] PPH+RBCs, IR, or operation [] Infection+Antibiotics [] Antepartum hospitalization ? 72 hours within the past month [] PMH: Sickle Cell, SLE, Cardiac Dz, Active IBD, Active Cancer, Nephrotic Syndrome OR 2 Minor Risk Factors: [] Multiple gestation [] Age > 40 [] PPH ? 1,000cc [] (+)FMH of VTE [] Smoker [] Preeclampsia [] BMI ? 40 kg/m2 AND [] Low Risk Thrombophilia OR ANY OF THE FOLLOWING: [] High Risk Thrombophilia without prior VTE [] Low Risk Thrombophilia with (+)FMH of VTE [] Any single prior VTE ANY OF THE FOLLOWING: [] Already on LMWH/UFH [] Multiple prior VTE [] High Risk Thrombophilia with prior VTE Low Risk Thrombophilia: FVL (heterozygous), Prothrombin (heterozygous), Protein C, Protein S High Risk Thrombophilia: FVL (homozygous), Prothrombin (homozygous), FVL+Prothrombin (heterozygous), Antithrombin III, APLS Delivery Summary: Specimen: None Blood Type and Rh: O Rubella Immunity Status: No results found for: RUBELLAIGG Krystyna Kevin MD 01/01/2023, 1:15 PM Associated attestation - Flavio Yanez MD - 01/01/2023 3:24 PM EDT Procedures or Surgery: I was present for all ruth elements of the procedure or surgery as described in the resident note. documented in this encounter [facility] 01-03-2023 Obstetrics Note Did not observe another latch today. Mom feels baby's latch has improved. Nipple damage is improving. Continues to use silverettes. Reminded mom of support group. Output parameters discussed. [facility] 01-03-2023 Note Formatting of this n ote might be different from the original. Home visit information given to patient on [facility] Mother -baby visit. Patient is independent and has insurance. She is prepared with her baby supplies. Denies any needs for housing, transportation or food. Discussion on the A. B. C's of safe sleep. Always place your baby on his or her back to sleep, use a firm sleep surface and your baby should not sleep in an adult bed, on a couch or chair. Keep soft objects, toys and loose bedding out of your baby's sleep area. Reviewed post depression. It is common to have blues. This is a normal response to many of the hormonal changes, stress and lack of sleep that go with raising a and physically recovering from the . Don't hesitate to talk to your provider with any concerns. There are resources in your home going booklet. To help prevent germs from spreading to you and your baby, make sure everyone washes their hands before they handle your . Avoid crowds, and keep infant away from sick people, anyone who is sick with a cough or fever, including family members. To be discharged to home. Denies any concerns at this time. [facility] 01-03-2023 Hospital course Narrative Images from the original note were not included. Department of Obstetrics and Gynecology Delivery Discharge Summary Admission on 12/31/2022 8:38 PM Reason for admission: Scheduled late term induction Intrapartum Course: induction consisted of a 60 ml zapata balloon and pitocin 41w2d PC-01 Indications for Delivery: Was patient delivered between 37w0d - [id number]? No Surgical Operations & Procedures: Date of delivery: 01/01/23 Delivery Type: Vaginal, Spontaneous Delivery Anesthesia: Epidural Laceration(s): 2nd degree Delivery Complications: None EBL: 150 cc Pertinent Findings & Procedures: Information for the patient's : Tiffanie Flores [[id number]] female 8 lb 9.7 oz (3.905 kg) Apgars: Information for the patient's : Tiffanie Flores [[id number]] Course: Uncomplicated : Female Blood Type/Rh: O positive Antibody Screen: Negative Rubella: Immune 05/20/22 Contraception: Declined : Yes VTE Prophylaxis: Not indicated Meds: Medication List START taking these medications acetaminophen 500 MG tablet Commonly known as: Tylenol Take 1 tablet (500 mg) by mouth every 8 hours as needed for mild pain (1-3). ferrous sulfate 325 (65 Fe) MG tablet Take 1 tablet (325 mg) by mouth in the morning and 1 tablet (325 mg) in the evening. Take with meals. Replaces: ferrous sulfate ER 142 mg ER tablet ibuprofen 600 MG tablet Take 1 tablet (600 mg) by mouth every 6 hours as needed for mild pain (1-3). senna 8.6 MG tablet Commonly known as: Senokot Take 1 tablet (8.6 mg) by mouth 2 times daily as needed for constipation. CONTINUE taking these medications VITAMIN PO STOP taking these medications docusate sodium 100 MG capsule Commonly known as: Colace ferrous sulfate ER 142 mg ER tablet Replaced by: ferrous sulfate 325 (65 Fe) MG tablet pyridoxine 25 MG tablet Commonly known as: Vitamin B-6 Where to Get Your Medications These medications were sent to [facility] [address] [place] [address] Hours: Tuesday to Tuesday 10 am to 6 pm acetaminophen 500 MG tablet ferrous sulfate 325 (65 Fe) MG tablet ibuprofen 600 MG tablet senna 8.6 MG tablet Activity: Activity as tolerated Diet: Regular diet If a patient meets criteria for hypertension, make sure the following are done prior to discharge: [] Order a blood pressure kit through [facility] (or the patient's own pharmacy on the weekend) [] Order the blood pressure log through [employer] [] Place a telephone encounter for a 72 hour blood pressure check. Specify that this will be a virtual visit. [] Include blood pressure dot phrase (.sumobhypertension) in discharge instructions [x] Check here if the patient does NOT meet criteria for hypertension Follow up Care: visit already scheduled 02/11/23 Condition on discharge: Stable Discharge to: Home Discharge date: 01/03/23 Discharge Dx: Status post spontaneous vaginal delivery Liveborn female Instructions to Patient:: Pelvic Rest (no intercourse, tampons, douching, etc) x 6 weeks Specific discharge instruction printed 41 weeks gestation of [O48.0, Z3A.41] Patient Active Problem List Diagnosis care, antepartum Family history of chromosomal microdeletion Antepartum anemia 41 weeks gestation of Comments: Home care, Follow-up care and control were reviewed. Signs and symptoms of mastitis and Post Depression were reviewed. The patient is to notify her physician if any of these occur. Bijal Kemp DO on 01/03/2023 at 10:18 AM documented in this encounter [facility] 01-02-2023 Hospital Discharg e instructions Bijal Kemp DO - 01/02/2023 2:14 PM EDT Images from the original note were not included. Thank you for allowing us to care for you at [facility]. This time can be one of many emotional ups and downs and many changes in your life. In these first weeks try to take good care of yourself because you will likely feel very tired. It may take 4 to 6 weeks to feel like yourself again, and possibly longer if you had a . FOLLOW-UP: Your follow-up care is a ruth part of your treatment and safety. Follow-up with your OB provider in 4 weeks or as specified by your OB provider. If you had high blood pressure, visit your OB provider within 3-5 days after being home. Most women's blood pressure will return to pre- levels after delivery. However, some patients continue to have problems with their blood pressure, and some even get worse. Very high blood pressure can lead to seizures or stroke which can be life threatening. If ordered by your provider, take your blood pressure at home and call your OB provider if you have a high reading. Your OB provider can write you a prescription for a blood pressure monitor if you do not have one. Be sure to make and go to all appointments, and call your OB provider if you are having problems. It's also a good idea to know your test results and keep a list of the medicines you take. BLEEDING Vaginal bleeding will decrease in amount over the next few weeks. Bleeding may sweet pickled fruit maker and then decrease again around 7-10 days . Use pads instead of tampons for the bloody flow that may last as long as 2 weeks. You will notice that as your activity increases, your flow may increase. Call your provider if you are saturating one maxi pad in an hour & passing large clots for 3 hours or more. ACTIVITY NO SEXUAL activity for 6 weeks or until advised by your OB provider; Nothing in vagina: intercourse, tampons, or douching. Begin to think about your reproductive life plan. Talk to your OB provider about if and when you would like another baby in the future. The recommendation for safe spacing is 18-24 months. Showering is okay; NO tub baths, swimming, or hot tubs. Gradually increase your activity. Resume exercise regimen only after advised by your OB provider. Avoid lifting anything heavier than ten pounds or a gallon of milk for six weeks. Avoid driving 1 week for vaginal delivery and 2 weeks for section, or longer if you are on prescription pain medicine unless otherwise instructed by your OB provider. Rise slowly from a lying to sitting and then a standing position. Climb stairs carefully. You may feel tired or have a lack of energy. You may continue your vitamin to replenish nutrients post-delivery. Nap whenever you can to catch up on sleep. EMOTIONS You may feel torres, sad, teary, & overwhelmed for the first 2 weeks ; however, feelings of depression may occur any time within the first year after delivery. Contact your OB provider if you feel you may be showing signs of depression, or have thoughts of harming yourself or anyone. mood and anxiety disorder affects 10-15% of parents. Symptoms of Maternal Depression may include: mood swings, anxiety, feelings of hopelessness, fatigue and loss of energy, restlessness, difficult concentrating, thoughts of hurting yourself or your children. Suicide & Crisis Lifeline Phone Number - [phone] For additional services, see the [facility] Maternal Depression Network handout WOUND CARE For Vaginal Delivery: Shower daily, and cleanse your perineum (bottom) with mild soap from front to back. Use the plastic squirt bottle until bleeding stops each time you use the restroom instead of wiping with toilet paper. Ease soreness of hemorrhoids and the area between your vagina and rectum with ice compresses or witch adriel pads. If used, stitches will dissolve in 4-6 weeks on their own. You may use a sitz bath or soak in a clean tub with drain open and water running for comfort. Kegel exercises will help restore bladder control. To do these tighten your muscles as if you were stopping your urine flow. Hold for a few seconds and then relax. Do these throughout the day. For Section Delivery: Keep your incision clean and dry. If you had steri-strips you may remove these once they start falling off. If you have angie they need to be removed 3-10 days after delivery. If you have steri-strips, remove after 7-10 days. Do not wear clothing that irritates the incision line. If your incision is in a crease that is not dry, use a hair-dryer to dry the area 3 times a day. If you develop fever, shaking chills, redness, swelling, drainage or discharge from your wound, or if your wound looks like it is coming apart call your provider immediately. BREAST CARE If you develop a warm, red, tender area on your breast or develop a fever contact your OB provider. If your breasts become engorged ask your provider because treatment can vary according to your needs. DIET & CONSTIPATION Eat a well-balanced diet focusing on foods high in fiber and protein such as: whole grain cereals and breads, fruits and vegetables and legumes (eg, beans, lentils) Drink 8-10 glasses of fluids daily, especially water. Limit caffeine. To avoid constipation you may take a mild [id number] stool softener (such as colace) as recommended by your OB provider. SWELLING Try to keep your legs elevated when you are sitting or lying down. Stay hydrated and take walks. If you had high blood pressure, weigh yourself at the same time each day. Write down your weight and take the record to your OB provider appointment. MEDICATIONS Take all medications prescribed for you exactly as ordered. Don't take any drugs not prescribed to you or over the counter medicines unless recommended by your provider. Don't smoke. WHEN TO CALL THE OB PROVIDER Signs of infection, including fever and chills Increased bleeding: soaking more than one pad an hour or passing clots the size of an egg or larger. Wounds that become red, swollen or drain pus Vaginal discharge that smells foul New pain, swelling, or tenderness in your legs Pain that you can't control with the medications you've been given Pain, burning, urgency or frequency of urination, or persistent bleeding in the urine Cough, shortness of breath, or serious difficulty catching your breath Chest pain or pain in the upper right area of your belly Headache (very painful) or vision changes like blurry or double vision, seeing spots or 'auras' Swelling that is worse or weight gain of more than 3 pounds in 3 days Depression, suicidal thoughts, or feelings of harming someone else Breasts that are hot, red and accompanied by fever Any cracking or bleeding from the nipple or areola (the dark-colored area of the breast) You may have been given a magnet with similar information. If so, we encourage you to use it on your refrigerator as a reminder of when to call your OB provider. In case of an emergency, call 911 immediately. Mobile [employer] nanoMR with delivery and sweet pickled fruit maker services: [employer]: Free sweet pickled fruit maker at locations Delivery is $12.95 a month Website - Gruvi Nicholson: International Coordinator $2.95 (1st order is free) Delivery is $14.95 Website - [employer]: superintendent quarry is free Delivery is $5.95 Website - [employer]: superintendent quarry is $4.95 Delivery is $9.95 Website [employer]: superintendent quarry is $4.95 Delivery is $9.95 Website [employer] Market: Can be ordered for delivery and sweet pickled fruit maker with [employer] Website - [employer]: Free deliver for first 3 orders of $35 or more Website - [email or web address] Will deliver from [employer], [employer], [employer], and [employer]. Annual membership is $99 Monthly membership is $14 documented in this encounter [facility] 01-02-2023 Note Formatting of this n ote might be different from the original. Date:01/02/2023 Name: Macy Flores :1995 [facility] Patient Information Primary Caregiver: Self Accompanied by/Relationship: S/O;Family Marital Status: Support System: SO/Family Buddhism/Cultural Factors: none Activities of Daily Living Communication: See demographics Living Arrangements Current Residence: Private residence Lives With: S/O; Family Support System: S/O; Family Income Information Income Source: Employed Financial Resource Strain How hard is it for you to pay for the very basics like food, housing, medical care and heating? N/A Housing Stability In the last 12 months, was there a time when you did not have a steady place to sleep or slept in a fdc (including now)? No Transportation Needs Has the lack of Transportation kept you from medical appointments? No In the past 12 months, has the lack of transportation kept you from meetings, work, or from getting things needed for daily living? No Food Insecurity Within the past 12 months, have you worried that your food would run out before you got the money to buy more? No Stress Do you feel stress - tense, restless, nervous, or anxious, or unable to sleep at night because you mind is troubled all the time? Mood stable Referral To Financial Resources: N/A Community Resources: Admission folder given upon admission to PP Unit Social Work: N/A CLP: N/A Medical Information- 27 year old admitted for induction of labor for late term. 2 Para 1. Vaginal delivery. Discharge Plan Home or Community Resources: Admission folder given upon admission to PP unit Equipment: N/A Education Given: Nandini Education- ( safe sleep, depression, post warning signs) Additional Information: Patient is independent and has insurance. Mental Health Services: Resources in discharge folder Equipment: Developmental Delay: N/A Children's Services: N/A [facility] 01-02-2023 Obstetrics Note Initial visit with mom. C/o painful latch. EP for her first baby d/t tongue/lip tie, sore nipples and latch did not improve with frenotomy. Has a hx of oversupply and fed baby JONATHAN for 1 yr. Observed infant latch, good position and alignment. Mom c/o sore nipples, unable to tolerate continues suckling. Assisted her with many positions, laid back position was the least uncomfortable and baby swallowed well. Both nipples have compression stripes, using silverettes for comfort. Oral exam was WNL, labial frenulum is thick but lip flanges well. Patient has a hx with a pediatric dentist that she may f/u for further exam. Reviewed feeding patterns, feeding cues, signs of transfer. Rx given for personal pump, mom looking for Spectra S-9. Shown section of Taking Care of Yourself and Baby' Booklet. Reviewed baby-led, cue based feedings (8-12x/day), how to know baby is getting enough, output parameters and milk storage guidelines. Discussed engorgement, plugged ducts and mastitis. Patient encouraged to seek help HIWOT for any concerns. phone number and [facility] information shared from booklet. Mom voiced understanding. No further questions. [facility] 01-01-2023 Labor and deliver y summary note Images from the original note were not included. Vaginal Delivery Note Department of Obstetrics and Gynecology Patient: Macy Flores : 1995 Date of delivery: 01/01/2023 Pre-operative Diagnosis: Macy Flores at 41w2d 1. IOL-LT 2. Anemia Post-operative Diagnosis: Live Born female Delivering Outside Sales Engineer & Prosthetic Dentist(s): Dr. Yanez; Dr. Kevin Information: Information for the patient's : Tiffanie Flores [[id number]] Information for the patient's : Tiffanie Flores [[id number]] Description: normal Meconium Noted: Yes: thick Anesthesia: epidural anesthesia Complications: None Application and Delivery: Macy Flores at 41w2d admitted for IOL-LT. Her labor course uncomplicated, she was induced with a zaptaa balloon, pitocin, AROM. She made change to complete and began to push She was known to be GBS negative and received no prophylaxis. After pushing with contractions the head delivered Cephalic, right occiput anterior over an intact perineum. A nuchal cord was present and reduced. The anterior, then posterior shoulder delivered easily and atraumatically followed by the rest of the . The infant was placed on the maternal abdomen and attended by the RN for evaluation . The was stimulated and dried. The cord was clamped and cut. The delivery of the placenta was spontaneous and appeared intact. Pitocin was started. The vagina was swept of all clots and debris. The perineum and vagina were evaluated. A midline 2nd degree laceration was identified and repaied in standard fashion. All counts were correct. Mother and baby tolerated procedure well. No uterotonics were required during delivery. EBL: 150ml QBL: VTE Prophylaxis: Not Indicated LABOR DELIVERY ??? SCD's ONLY (labor through ambulation) SCD's PLUS Prophylactic Anticoagulation until discharge SCD's PLUS Prophylactic Anticoagulation for 6 weeks SCD's PLUS Therapeutic Anticoagulation for 6 weeks Vaginal Delivery [] BMI ? 40 kg/m2 Delivery All patients Vaginal Delivery [] BMI ? 40 kg/m2 AND [] Antepartum hospitalization ? 72 hours within the past month Delivery 1 Major Risk Factor: [] BMI ? 35 kg/m2 [] Low Risk Thrombophilia [] PPH+RBCs, IR, or operation [] Infection+Antibiotics [] Antepartum hospitalization ? 72 hours within the past month [] PMH: Sickle Cell, SLE, Cardiac Dz, Active IBD, Active Cancer, Nephrotic Syndrome OR 2 Minor Risk Factors: [] Multiple gestation [] Age > 40 [] PPH ? 1,000cc [] (+)FMH of VTE [] Smoker [] Preeclampsia [] BMI ? 40 kg/m2 AND [] Low Risk Thrombophilia OR ANY OF THE FOLLOWING: [] High Risk Thrombophilia without prior VTE [] Low Risk Thrombophilia with (+)FMH of VTE [] Any single prior VTE ANY OF THE FOLLOWING: [] Already on LMWH/UFH [] Multiple prior VTE [] High Risk Thrombophilia with prior VTE Low Risk Thrombophilia: FVL (heterozygous), Prothrombin (heterozygous), Protein C, Protein S High Risk Thrombophilia: FVL (homozygous), Prothrombin (homozygous), FVL+Prothrombin (heterozygous), Antithrombin III, APLS Delivery Summary: Specimen: None Blood Type and Rh: O Rubella Immunity Status: No results found for: RUBELLAIGG Krystyna Kevin MD 01/01/2023, 1:15 PM Associated attestation - Flavio Yanez MD - 01/01/2023 3:24 PM EDT Procedures or Surgery: I was present for all ruth elements of the procedure or surgery as described in the resident note. [facility] 12-31-2022 History and physical note Obstetrical History and Physical CHIEF COMPLAINT: IOL-LT HISTORY OF PRESENT ILLNESS: The patient is a 27 y.o. female at 41w1d OB History 2 Para 1 Term 1 0 AB 0 Living 1 SAB 0 IAB 0 Ectopic 0 Multiple Live Births 1 Patient presents with a chief complaint as above and is being admitted for induction Denies DFM/VB/LOF/FALK/EpigastricPain/Vis ual changes Estimated Due Date: Estimated Date of Delivery: 12/23/22 PC-01 HARDSTOP. Current EGA is 41w1d Is this patient being delivered between 23k8k-06x9c weeks with an acceptable medical indication (obstetric, maternal, and/or )? NA: Not Applicable: This patient is being delivered outside of the PC-01 range (39r9z-47w8d) for reasons indicated in the medical record. CARE: Complications: See Below PAST OB HISTORY: OB History Para Term AB Living 2 1 1 0 0 1 SAB IAB Ectopic Multiple Live Births 0 0 0 1 # Outcome Date GA Lbr Macario/2nd Weight Sex Delivery Anes PTL Lv 2 Current 1 Term 06/09/21 39w2d 8 lb (3.629 kg) M Vag-Spont ROHIT Comments: Induced for possible Cat II Detailed OB History G1 Term G2 Current Past Medical History: Past Medical History: Diagnosis Date Normal spontaneous vaginal delivery 06/09/2021 Seasonal allergies Past Surgical History: Past Surgical History: Procedure Laterality Date US ASP BREAST CYST LEFT (HISTORICAL) Left 07/09/2021 US BREAST CYST ASPIRATION LEFT US ASP BREAST CYST LEFT (HISTORICAL) Left 08/21/2021 US BREAST CYST ASPIRATION LEFT WISDOM TOOTH EXTRACTION Allergies: Patient has no known allergies. Social History: Social History Socioeconomic History Marital status: Spouse name: Not on file Number of children: Not on file Years of education: Not on file Highest education level: Not on file Occupational History Not on file Tobacco Use Smoking status: Never Smokeless tobacco: Never Vaping Use Vaping Use: Never used Substance and Sexual Activity Alcohol use: Not Currently Drug use: Never Sexual activity: Yes Partners: Male Other Topics Concern Not on file Social History Narrative Merged History Encounter Social Determinants of Health Financial Resource Strain: Not on file Food Insecurity: Not on file Transportation Needs: Not on file Physical Activity: Not on file Stress: Not on file Social Connections: Not on file Intimate Partner Violence: Not on file Housing Stability: Not on file Family History: Family History Problem Relation Name Age of Onset Other (ms) Paternal Grandmother Heart disease Maternal Grandfather Medications Prior to Admission: Medications Prior to Admission Medication Sig Dispense Refill Last Dose docusate sodium (Colace) 100 MG capsule Take 1 capsule (100 mg) by mouth 2 times daily. 60 capsule 2 ferrous sulfate ER 142 mg ER tablet Take 1 tablet (142 mg) by mouth in the morning and 1 tablet (142 mg) in the evening. Take with meals. Take 1 tablet by mouth twice a day.. 60 tablet 3 Vit-Fe Fumarate-FA ( VITAMIN PO) Take by mouth. pyridoxine (Vitamin B-6) 25 MG tablet Take 25 mg by mouth if needed. REVIEW OF SYSTEMS: Const: Negative HEENT: Negative Resp: Negative CVS: Negative GI: Negative : Negative MSK: Negative Breast: Negative Skin: Negative Heme/Lymph:Negative Endo: Negative Neuro: Negative Psych: Negative PHYSICAL EXAM: There were no vitals filed for this visit. General appearance: awake, alert, cooperative, no apparent distress, and appears stated age Neurologic: Awake, alert, oriented to name, place and time. Lungs: No increased work of breathing, good air exchange Abdomen: Soft, non tender, gravid, consistent with her gestational age Sterile Speculum Exam: Membranes: Intact HSV Lesions:not applicable Cervix: /-3 Labs: CBC: No results found for: WBC, RBC, HGB, HCT, MCV, MCH, MCHC, RDW, PLT, MPV Blood Type/Rh: RH Positive Group B Strep: GBS Negative Fetus: EFW: 7 lbs by Leopolds Presentation: Vtx by U/S Grande Score: 5 0 1 2 3 Position Posterior Mid Anterior - Consistency Firm Medium Soft - Effacement 0-30% 40-50% 60-70% 80% or > Dilation 0cm 1-2cm 3-4cm 5cm or > Station -3 -2 -1, 0 +1, +2 LABOR DELIVERY ??? SCD's ONLY (labor through ambulation) SCD's PLUS Prophylactic Anticoagulation until discharge SCD's PLUS Prophylactic Anticoagulation for 6 weeks SCD's PLUS Therapeutic Anticoagulation for 6 weeks Vaginal Delivery [] BMI ? 40 kg/m2 Delivery All patients Vaginal Delivery [] BMI ? 40 kg/m2 AND [] Antepartum hospitalization ? 72 hours within the past month Delivery 1 Major Risk Factor: [] BMI ? 35 kg/m2 [] Low Risk Thrombophilia [] PPH+RBCs, IR, or operation [] Infection+Antibiotics [] Antepartum hospitalization ? 72 hours within the past month [] PMH: Sickle Cell, SLE, Cardiac Dz, Active IBD, Active Cancer, Nephrotic Syndrome OR 2 Minor Risk Factors: [] Multiple gestation [] Age > 40 [] PPH ? 1,000cc [] (+)FMH of VTE [] Smoker [] Preeclampsia [] BMI ? 40 kg/m2 AND [] Low Risk Thrombophilia OR ANY OF THE FOLLOWING: [] High Risk Thrombophilia without prior VTE [] Low Risk Thrombophilia with (+)FMH of VTE [] Any single prior VTE ANY OF THE FOLLOWING: [] Already on LMWH/UFH [] Multiple prior VTE [] High Risk Thrombophilia with prior VTE Low Risk Thrombophilia: FVL (heterozygous), Prothrombin (heterozygous), Protein C, Protein S High Risk Thrombophilia: FVL (homozygous), Prothrombin (homozygous), FVL+Prothrombin (heterozygous), Antithrombin III, APLS ASSESSMENT AND PLAN: 1. IOL-LT Admission: Admit to L&D FHR: Category 1 Celestone: not indicated Pain control plan: desires epidural Delivery Plan: FB, Pitocin, AROM GBS: GBS negative, No indication for GBS prophylaxis LARC: declines Intrapartum SCDs: Not Indicated VTE Prophylaxis: Not Indicated 2. Family Hx Chromosomal Microdeletion - First sone has microdeletion on one chromosome 13, other is normal, no effects apparent - No karyotyping done - Declined NIPT this 3. Anemia - Hgb 10.1 at 28 weeks, started on oral iron twice daily - Repeat Hgb 10/29/22 was 12.1 - CBC pending on admission Discussed with Dr. Yanez who agrees with plan. FABI PATRICK, 12/31/2022, 11:28 PM Associated attestation - Flavio Yanez MD - 01/01/2023 2:48 PM EDT Hospital Care (Independent): I independently saw and evaluated the patient. I agree with the findings and plan of care as documented in the resident's note. [facility] 12-31-2022 History and physical note Obstetrical History and Physical CHIEF COMPLAINT: IOL-LT HISTORY OF PRESENT ILLNESS: The patient is a 27 y.o. female at 41w1d OB History 2 Para 1 Term 1 0 AB 0 Living 1 SAB 0 IAB 0 Ectopic 0 Multiple Live Births 1 Patient presents with a chief complaint as above and is being admitted for induction Denies DFM/VB/LOF/FALK/EpigastricPain/Vis ual changes Estimated Due Date: Estimated Date of Delivery: 12/23/22 PC-01 HARDSTOP. Current EGA is 41w1d Is this patient being delivered between 86z1f-28p9d weeks with an acceptable medical indication (obstetric, maternal, and/or )? NA: Not Applicable: This patient is being delivered outside of the PC-01 range (56q2g-76z9j) for reasons indicated in the medical record. CARE: Complications: See Below PAST OB HISTORY: OB History Para Term AB Living 2 1 1 0 0 1 SAB IAB Ectopic Multiple Live Births 0 0 0 1 # Outcome Date GA Lbr Macario/2nd Weight Sex Delivery Anes PTL Lv 2 Current 1 Term 06/09/21 39w2d 8 lb (3.629 kg) M Vag-Spont ROHIT Comments: Induced for possible Cat II Detailed OB History G1 Term G2 Current Past Medical History: Past Medical History: Diagnosis Date Normal spontaneous vaginal delivery 06/09/2021 Seasonal allergies Past Surgical History: Past Surgical History: Procedure Laterality Date US ASP BREAST CYST LEFT (HISTORICAL) Left 07/09/2021 US BREAST CYST ASPIRATION LEFT US ASP BREAST CYST LEFT (HISTORICAL) Left 08/21/2021 US BREAST CYST ASPIRATION LEFT WISDOM TOOTH EXTRACTION Allergies: Patient has no known allergies. Social History: Social History Socioeconomic History Marital status: Spouse name: Not on file Number of children: Not on file Years of education: Not on file Highest education level: Not on file Occupational History Not on file Tobacco Use Smoking status: Never Smokeless tobacco: Never Vaping Use Vaping Use: Never used Substance and Sexual Activity Alcohol use: Not Currently Drug use: Never Sexual activity: Yes Partners: Male Other Topics Concern Not on file Social History Narrative Merged History Encounter Social Determinants of Health Financial Resource Strain: Not on file Food Insecurity: Not on file Transportation Needs: Not on file Physical Activity: Not on file Stress: Not on file Social Connections: Not on file Intimate Partner Violence: Not on file Housing Stability: Not on file Family History: Family History Problem Relation Name Age of Onset Other (ms) Paternal Grandmother Heart disease Maternal Grandfather Medications Prior to Admission: Medications Prior to Admission Medication Sig Dispense Refill Last Dose docusate sodium (Colace) 100 MG capsule Take 1 capsule (100 mg) by mouth 2 times daily. 60 capsule 2 ferrous sulfate ER 142 mg ER tablet Take 1 tablet (142 mg) by mouth in the morning and 1 tablet (142 mg) in the evening. Take with meals. Take 1 tablet by mouth twice a day.. 60 tablet 3 Vit-Fe Fumarate-FA ( VITAMIN PO) Take by mouth. pyridoxine (Vitamin B-6) 25 MG tablet Take 25 mg by mouth if needed. REVIEW OF SYSTEMS: Const: Negative HEENT: Negative Resp: Negative CVS: Negative GI: Negative : Negative MSK: Negative Breast: Negative Skin: Negative Heme/Lymph:Negative Endo: Negative Neuro: Negative Psych: Negative PHYSICAL EXAM: There were no vitals filed for this visit. General appearance: awake, alert, cooperative, no apparent distress, and appears stated age Neurologic: Awake, alert, oriented to name, place and time. Lungs: No increased work of breathing, good air exchange Abdomen: Soft, non tender, gravid, consistent with her gestational age Sterile Speculum Exam: Membranes: Intact HSV Lesions:not applicable Cervix: /-3 Labs: CBC: No results found for: WBC, RBC, HGB, HCT, MCV, MCH, MCHC, RDW, PLT, MPV Blood Type/Rh: RH Positive Group B Strep: GBS Negative Fetus: EFW: 7 lbs by Leopolds Presentation: Vtx by U/S Grande Score: 5 0 1 2 3 Position Posterior Mid Anterior - Consistency Firm Medium Soft - Effacement 0-30% 40-50% 60-70% 80% or > Dilation 0cm 1-2cm 3-4cm 5cm or > Station -3 -2 -1, 0 +1, +2 LABOR DELIVERY ??? SCD's ONLY (labor through ambulation) SCD's PLUS Prophylactic Anticoagulation until discharge SCD's PLUS Prophylactic Anticoagulation for 6 weeks SCD's PLUS Therapeutic Anticoagulation for 6 weeks Vaginal Delivery [] BMI ? 40 kg/m2 Delivery All patients Vaginal Delivery [] BMI ? 40 kg/m2 AND [] Antepartum hospitalization ? 72 hours within the past month Delivery 1 Major Risk Factor: [] BMI ? 35 kg/m2 [] Low Risk Thrombophilia [] PPH+RBCs, IR, or operation [] Infection+Antibiotics [] Antepartum hospitalization ? 72 hours within the past month [] PMH: Sickle Cell, SLE, Cardiac Dz, Active IBD, Active Cancer, Nephrotic Syndrome OR 2 Minor Risk Factors: [] Multiple gestation [] Age > 40 [] PPH ? 1,000cc [] (+)FMH of VTE [] Smoker [] Preeclampsia [] BMI ? 40 kg/m2 AND [] Low Risk Thrombophilia OR ANY OF THE FOLLOWING: [] High Risk Thrombophilia without prior VTE [] Low Risk Thrombophilia with (+)FMH of VTE [] Any single prior VTE ANY OF THE FOLLOWING: [] Already on LMWH/UFH [] Multiple prior VTE [] High Risk Thrombophilia with prior VTE Low Risk Thrombophilia: FVL (heterozygous), Prothrombin (heterozygous), Protein C, Protein S High Risk Thrombophilia: FVL (homozygous), Prothrombin (homozygous), FVL+Prothrombin (heterozygous), Antithrombin III, APLS ASSESSMENT AND PLAN: 1. IOL-LT Admission: Admit to L&D FHR: Category 1 Celestone: not indicated Pain control plan: desires epidural Delivery Plan: FB, Pitocin, AROM GBS: GBS negative, No indication for GBS prophylaxis LARC: declines Intrapartum SCDs: Not Indicated VTE Prophylaxis: Not Indicated 2. Family Hx Chromosomal Microdeletion - First sone has microdeletion on one chromosome 13, other is normal, no effects apparent - No karyotyping done - Declined NIPT this 3. Anemia - Hgb 10.1 at 28 weeks, started on oral iron twice daily - Repeat Hgb 10/29/22 was 12.1 - CBC pending on admission Discussed with Dr. Yanez who agrees with plan. FABI LOPEZ DO 12/31/2022, 11:28 PM Associated attestation - Flavio Yanez MD - 01/01/2023 2:48 PM EDT Hospital Care (Independent): I independently saw and evaluated the patient. I agree with the findings and plan of care as documented in the resident's note. documented in this encounter [facility] 12-29-2022 Hospital Discharg e instructions Sophie Zhou DO - 12/29/2022 7:54 PM EDT Follow up appointment with your doctor/top closer - Keep next scheduled appointment Activity - Normal Activity Call your doctor/top closer if you have: - leaking fluid - vaginal bleeding - regular contractions: More than 6 contractions in one hour - decreased movement - worsening abdominal (belly) pain - headache, blurry vision, increased swelling, upper abdominal pain If you are going home with contractions that are uncomfortable/painful- we recommend these coping strategies: rhythmic breathing, hydrotherapy, imagery or visualization, gentle massage, walking and changing your position. Treatment Verification: Macy Flores was assessed on Labor and Delivery for a related visit on 12/29/22 . Sophie Zhou DO [facility] documented in this encounter [facility] 12-29-2022 History of Presen t illness Narrative Department of Obstetrics and Gynecology Labor and Delivery Triage Note CHIEF COMPLAINT: R/O ROM HISTORY OF PRESENT ILLNESS: The patient is a 27 y.o. 40w6d. OB History 2 Para 1 Term 1 0 AB 0 Living 1 SAB 0 IAB 0 Ectopic 0 Multiple Live Births 1 Patient presents with a chief complaint as above. Patient presents for leakage of fluid after going to the restroom. Patient denies continued leakage. She endorses rare contractions. She denies DFM/VB Estimated Due Date: Estimated Date of Delivery: 12/23/22 PAST MEDICAL HISTORY: Past Medical History: Diagnosis Date Normal spontaneous vaginal delivery 06/09/2021 Seasonal allergies PAST SURGICAL HISTORY: Past Surgical History: Procedure Laterality Date US ASP BREAST CYST LEFT (HISTORICAL) Left 07/09/2021 US BREAST CYST ASPIRATION LEFT US ASP BREAST CYST LEFT (HISTORICAL) Left 08/21/2021 BREAST CYST ASPIRATION LEFT WISDOM TOOTH EXTRACTION SOCIAL HISTORY: reports that she has never smoked. She has never used smokeless tobacco. She reports that she does not currently use alcohol. She reports that she does not use drugs. MEDICATIONS: Prior to Admission medications Medication Sig Start Date End Date Taking? Authorizing Provider docusate sodium (Colace) 100 MG capsule Take 1 capsule (100 mg) by mouth 2 times daily. 10/01/22 RAPHAEL Elizabeth CNM ferrous sulfate ER 142 mg ER tablet Take 1 tablet (142 mg) by mouth in the morning and 1 tablet (142 mg) in the evening. Take with meals. Take 1 tablet by mouth twice a day.. 10/01/22 RAPHAEL Elizabeth CNM Vit-Fe Fumarate-FA ( VITAMIN PO) Take by mouth. Historical Provider, pyridoxine (Vitamin B-6) 25 MG tablet Take 25 mg by mouth if needed. Historical Provider, ondansetron ODT (Zofran-ODT) 4 MG disintegrating tablet Take 1 tablet (4 mg) by mouth every 12 hours as needed for nausea or vomiting for up to 30 doses. Do not take with promethazine 05/20/22 12/24/22 RAPHAEL Munson CNM CARE: Complicated by: None REVIEW OF SYSTEMS: Pertinent items are noted in HPI. APPEARANCE: Pain: No PHYSICAL EXAM: Vital Signs: VS wnl-reviewed/Respirations normal effort Vitals: 12/29/22 1755 12/29/22 1920 BP: 124/87 Pulse: 78 62 Resp: 16 Temp: 36.7 C (98.1 F) TempSrc: Oral SpO2: 99% Weight: 202 lb (91.6 kg) Height: 5' 5 (1.651 m) Abdomen: soft, NT, ND, no rebound/guarding Uterus: gravid/non-tender LE Edema: trace Speculum Exam: no pooling of fluid seen, Nitrizine test is negative heart rate: Category I Cervix: fingertip Contraction frequency: rare Membranes: Intact TRIAGE COURSE: VTX on BSUS. Neg for pooling and nitrazine negative. Fingertip on exam. Cat I. Patient scheduled for IOL on Tuesday. Return precautions given. Sophie Zhou DO 12/29/2022 7:53 PM IMPRESSION: False Labor Pain assessment and plan: None DISCUSSED WITH PNC PROVIDER: Dr. Sellers DISPOSITION: Discharge to Home Associated attestation - Clair Suresh DO - 12/29/2022 11:32 PM EDT Hospital Care (Independent): I independently saw and evaluated the patient. I agree with the findings and plan of care as documented in the resident's note. documented in this encounter [facility] 12-29-2022 Telephone encounter Note Pt currently being evaluated in OB triage [facility] 12-29-2022 Miscellaneous Notes Pt currently being evaluated in OB triage Rdaha: Patient spoke with [facility] nurse regarding possible rupture of membranes B: Onset of symptoms/concern today, within the last hour. A: Pt state is 40 weeks 6 days with 2nd child. Pt states was having a bowel movement today, states as she was pushing, had an unexpected explosive gush of fluids. Thinks possible rupture of membranes. States checked her underwear about 10 minutes later, felt like there was more fluid leaking and underwear was damp. Pt placed pad on. States fluid was clear. Pt state her urine has been darker today, so has been drinking more water. States no low back, pelvic pain/ pressure or abdominal pain/ cramping. Pt states noted increased movement last night, not as much movement today. States has not done kick counts, but has felt movement, just not as much as last night. 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 R: Advised to have someone else drive her to L&D now for eval. Pt aware of unit location. Patient understands care advice. No further needs at this time. Patient instructed to call back with new or worsening symptoms. Reason for Disposition Leakage of fluid from vagina Protocols used: - Rupture of Membranes [id number] documented in this encounter [facility] 12-29-2022 Telephone encounter Note S: Patient spoke with [facility] nurse regarding possible rupture of membranes B: Onset of symptoms/concern today, within the last hour. A: Pt state is 40 weeks 6 days with 2nd child. Pt states was having a bowel movement today, states as she was pushing, had an unexpected explosive gush of fluids. Thinks possible rupture of membranes. States checked her underwear about 10 minutes later, felt like there was more fluid leaking and underwear was damp. Pt placed pad on. States fluid was clear. Pt state her urine has been darker today, so has been drinking more water. States no low back, pelvic pain/ pressure or abdominal pain/ cramping. Pt states noted increased movement last night, not as much movement today. States has not done kick counts, but has felt movement, just not as much as last night. 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 R: Advised to have someone else drive her to L&D now for eval. Pt aware of unit location. Patient understands care advice. No further needs at this time. Patient instructed to call back with new or worsening symptoms. Reason for Disposition Leakage of fluid from vagina Protocols used: - Rupture of Membranes [id number]-OB [facility] 12-28-2022 Evaluation + Plan note Associated Problem(s): Antepartum anemia Declined flu shot Has iol scheduled for tuesday [facility] 12-28-2022 Miscellaneous Notes Associated Problem(s): Antepartum anemia Declined flu shot Has iol scheduled for tuesday documented in this encounter [facility] 12-28-2022 History of Presen t illness Narrative She is here for 40w5d OB visit. Denies cramping leaking or bleeding or LOF PHYSICAL EXAM: BP 116/80 Pulse 86 Wt 202 lb 12.8 oz (92 kg) LMP 03/25/2022 BMI 33.75 kg/m I have reviewed her pertinent history, lab results, medications and problem list. See episode for any changes. Denies cramping leaking or bleeding or LOF Well appearing, Alert & oriented Skin warm & dry Normal range of motion in all extremities. Abdomen soft nontender Normal resp effort ASSESSESMENT: Diagnosis Plan 1. Antepartum anemia 2. Family history of chromosomal microdeletion 3. 40 weeks gestation of PLAN: Patient Active Problem List Diagnosis care, antepartum Family history of chromosomal microdeletion Antepartum anemia Antepartum anemia Declined flu shot Has iol scheduled for tuesday RAPHAEL Roman CNM 12/28/22 Follow up for pp. documented in this encounter [facility] 12-24-2022 Evaluation + Plan note Associated Problem(s): Antepartum anemia Had good response to iron supplements [facility] 12-24-2022 Evaluation + Plan note Associated Problem(s): care, antepartum Doing well. Feeling good FM Has IOL scheduled for 12/26 but would feel better if she could get a little closer to the 41 wk elis without going over it. Will try to reschedule for the [facility] 12-24-2022 Miscellaneous Notes Associated Problem(s): Antepartum anemia Had good response to iron supplements Associated Problem(s): care, antepartum Doing well. Feeling good FM Has IOL scheduled for 12/26 but would feel better if she could get a little closer to the 41 wk elis without going over it. Will try to reschedule for the documented in this encounter [facility] 12-24-2022 History of Presen t illness Narrative Strict kick counts, call with decreased movement. Pt reports good FM. PLAN: care, antepartum Doing well. Feeling good FM Has IOL scheduled for 12/26 but would feel better if she could get a little closer to the 41 wk elis without going over it. Will try to reschedule for the Antepartum anemia Had good response to iron supplements Discussed postdates plan including induction at 41 weeks with favorable cervix or performing ultrasound and NST at 41 weeks. If that testing is reassuring then she could wait until 42 weeks for induction. She is here for 40w1d OB visit. Denies cramping, leaking, and bleeding. ASSESSESMENT: Diagnosis Plan 1. care, antepartum POCT urinalysis dipstick manually resulted PHYSICAL EXAM: BP 137/87 Wt 203 lb (92.1 kg) BMI 33.78 kg/m I have reviewed her pertinent history, lab results, medications, and problem list. See episode for any changes. Well appearing, Alert & oriented Skin warm & dry Normal range of motion in all extremities. Abdomen soft nontender Normal resp effort Grande Score: 5 0 1 2 3 Position Posterior Mid Anterior - Consistency Firm Medium Soft - Effacement 0-30% 40-50% 60-70% 80% or > Dilation 0cm 1-2cm 3-4cm 5cm or > Station -3 -2 -1, 0 +1, +2 Follow up in about 5 days (around 12/29/2022) for would like to move her IOL to 12/29. RAPHAEL Elizabeth CNM documented in this encounter [facility] 12-24-2022 Instructions RAPHAEL Elizabeth CNM - 12/24/2022 1:00 PM EDT When to call near your due date: If you are fairly certain that you are in labor or if your water breaks, you can go directly to Labor and Delivery at [facility]. If you desire midwifery care during labor, we always have a Certified Nurse Mandarin Speaking Nanny instrumentation controls engineer at the hospital 25/10. Please call if you have questions regarding any of the following: During office hours please call the office: [phone] After hours answering service phone number: [phone] LABOR: Contractions that you can not walk or talk though, that are 5 minutes apart, lasting a minute and this has been happening for at least an hour. If you have had a baby before, you should come in to the hospital when your contractions are 6-7 minutes apart and are strong enough that you can not walk or talk through them. BLEEDING: Blood tinged mucous discharge is not uncommon, especially if you have had an exam in the office recently or sexual intercourse. However if you are bleeding like a period, you should call us. WATER BREAKS: You may experience in increase in vaginal secretions near the time of labor, but if you think your water broke, please call us or go to [facility]. DECREASED MOVEMENT: Baby movements change in the last trimester. They tend to be not as vigorous, and change to nudges and rolls. But, if you feel like these movement are not normal, please call our office during office hours or the answering service after hours. If you are told to go to OB triage at [facility]; The Main Entrance to [facility] is [address] [place] [address]. Use your GPS if you need directions Locate the Main Parking Deck / Steve Parking deck Walk across the bridge on the 1st floor and you will go to the second floor by using the H elevator once you are in the [place] [facility]. DO NOT GO TO THE EMERGENCY ROOM documented in this encounter [facility] 12-17-2022 Evaluation + Plan note Associated Problem(s): care, antepartum She is here for 39w1d OB visit. Denies cramping, leaking, and bleeding. Pt requests induction between 40 and 41 weeks, R/B reviewed, consent signed. Enrike CORBIN, call with dec FM. Denies LOF, bleeding, cramping, contractions GBS results reviewed Lab Results Component Value Date GROUPBSTREPT NOT DETECTED 11/26/2022 Information on AVS; Who and when to call How to get to the hospital and when to go [facility] 12-17-2022 Miscellaneous Notes Associated Problem(s): care, antepartum She is here for 39w1d OB visit. Denies cramping, leaking, and bleeding. Pt requests induction between 40 and 41 weeks, R/B reviewed, consent signed. Enrike CORBIN, call with dec FM. Denies LOF, bleeding, cramping, contractions GBS results reviewed Lab Results Component Value Date GROUPBSTREPT NOT DETECTED 11/26/2022 Information on AVS; Who and when to call How to get to the hospital and when to go documented in this encounter [facility] 12-17-2022 History of Presen t illness Narrative ASSESSESMENT / PLAN care, antepartum She is here for 39w1d OB visit. Denies cramping, leaking, and bleeding. Good FM, call with dec FM. Denies LOF, bleeding, cramping, contractions GBS results reviewed Lab Results Component Value Date GROUPBSTREPT NOT DETECTED 11/26/2022 Information on AVS; Who and when to call How to get to the hospital and when to go Patient Active Problem List Diagnosis care, antepartum Family history of chromosomal microdeletion Antepartum anemia PHYSICAL EXAM: BP 114/76 Pulse 88 Wt 199 lb (90.3 kg) LMP 03/25/2022 BMI 33.12 kg/m I have reviewed her pertinent history, lab results, medications, and problem list. See episode for any changes. Well appearing, Alert & oriented Skin warm & dry Normal range of motion in all extremities. Abdomen soft nontender Normal resp effort Diagnosis Plan 1. care, antepartum Follow up in about 1 week (around 12/24/2022) for RHYSRAPHAEL Melchor CNM 12/17/22 documented in this encounter [facility] 12-17-2022 Instructions RAPHAEL Pink CNM - 12/17/2022 11:00 AM EDT When to call near your due date: If you are fairly certain that you are in labor or if your water breaks, you can go directly to Labor and Delivery at [facility]. If you desire midwifery care during labor, we always have a Certified Nurse Mandarin Speaking Nanny instrumentation controls engineer at the hospital 25/10. Please call if you have questions regarding any of the following: During office hours please call the office: [phone] After hours answering service phone number: [phone] LABOR: Contractions that you can not walk or talk though, that are 5 minutes apart, lasting a minute and this has been happening for at least an hour. If you have had a baby before, you should come in to the hospital when your contractions are 6-7 minutes apart and are strong enough that you can not walk or talk through them. BLEEDING: Blood tinged mucous discharge is not uncommon, especially if you have had an exam in the office recently or sexual intercourse. However if you are bleeding like a period, you should call us. WATER BREAKS: You may experience in increase in vaginal secretions near the time of labor, but if you think your water broke, please call us or go to [facility]. DECREASED MOVEMENT: Baby movements change in the last trimester. They tend to be not as vigorous, and change to nudges and rolls. But, if you feel like these movement are not normal, please call our office during office hours or the answering service after hours. If you are told to go to OB triage at [facility]; The Main Entrance to [facility] is [address] [place] [address]. Use your GPS if you need directions Locate the Main Parking Deck / Steve Parking deck Walk across the bridge on the 1st floor and you will go to the second floor by using the H elevator once you are in the [facility]. DO NOT GO TO THE EMERGENCY ROOM documented in this encounter [facility] 12-08-2022 History of Presen t illness Narrative Pt here for 37w 6d OB visit. Good FM No LOF or bleeding. No contractions. NEG GBS History reviewed - see episode report No nausea or vomiting. PE: See vitals Pt A&OX3, NAD Normal affect Non labored breathing Abd - non tender A clinical staff anesthesiologist was offered to be present during her exam. The patient: declined Urine dip protein trace, Uro trace documented in this encounter [facility] 11-26-2022 Evaluation + Plan note Associated Problem(s): care, antepartum She is here for 36w1d OB visit. Denies cramping, leaking, and bleeding. Pt reports good FM, call with dec FM. Denies LOF, bleeding, cramping, contractions GBS done today. Allergies reviewed Plans plans to breastfeed Childbirth classes done:No Hospital tour?No Preregistration? No Diesel Machinist: Yes Teaching - Kick counts AVS information included; Who and when to call Direction to get to the hospital S&S of labor Choosing top closer or physician [facility] 11-26-2022 Miscellaneous Notes Associated Problem(s): care, antepartum She is here for 36w1d OB visit. Denies cramping, leaking, and bleeding. Pt reports good FM, call with dec FM. Denies LOF, bleeding, cramping, contractions GBS done today. Allergies reviewed Plans plans to breastfeed Childbirth classes done:No Hospital tour?No Preregistration? No Diesel Machinist: Yes Teaching - Kick counts AVS information included; Who and when to call Direction to get to the hospital S&S of labor Choosing top closer or physician documented in this encounter [facility] 11-26-2022 History of Presen t illness Narrative ASSESSESMENT / PLAN care, antepartum She is here for 36w1d OB visit. Denies cramping, leaking, and bleeding. Pt reports good FM, call with dec FM. Denies LOF, bleeding, cramping, contractions GBS done today. Allergies reviewed Plans plans to breastfeed Childbirth classes done:No Hospital tour?No Preregistration? No Diesel Machinist: Yes Teaching - Kick counts AVS information included; Who and when to call Direction to get to the hospital S&S of labor Choosing top closer or physician Patient Active Problem List Diagnosis Breast abscess care, antepartum Family history of chromosomal microdeletion Antepartum anemia PHYSICAL EXAM: BP 116/75 Pulse 82 Wt 190 lb (86.2 kg) LMP 03/25/2022 BMI 31.62 kg/m I have reviewed her pertinent history, lab results, medications, and problem list. See episode for any changes. Well appearing, Alert & oriented Skin warm & dry Normal range of motion in all extremities. Abdomen soft nontender Normal resp effort Diagnosis Plan 1. care, antepartum Follow up in about 1 week (around 12/03/2022) for RAPHAEL Colon CNM 11/26/22 documented in this encounter [facility] 11-26-2022 Instructions RAPHAEL Pink CNM - 11/26/2022 11:30 AM EDT When to call near your due date: If you are fairly certain that you are in labor or if your water breaks, you can go directly to Labor and Delivery at [facility]. If you desire midwifery care during labor, we always have a Certified Nurse Mandarin Speaking Nanny instrumentation controls engineer at the hospital 25/10. Please call if you have questions regarding any of the following: During office hours please call the office: [phone] After hours answering service phone number: [phone] LABOR: Contractions that you can not walk or talk though, that are 5 minutes apart, lasting a minute and this has been happening for at least an hour. If you have had a baby before, you should come in to the hospital when your contractions are 6-7 minutes apart and are strong enough that you can not walk or talk through them. BLEEDING: Blood tinged mucous discharge is not uncommon, especially if you have had an exam in the office recently or sexual intercourse. However if you are bleeding like a period, you should call us. WATER BREAKS: You may experience in increase in vaginal secretions near the time of labor, but if you think your water broke, please call us or go to [facility]. DECREASED MOVEMENT: Baby movements change in the last trimester. They tend to be not as vigorous, and change to nudges and rolls. But, if you feel like these movement are not normal, please call our office during office hours or the answering service after hours. If you are told to go to OB triage at [facility]; The Main Entrance to [facility] is [address]. Use your GPS if you need directions Locate the Main Parking Deck / Steve Parking deck Walk across the bridge on the 1st floor and you will go to the second floor by using the H elevator once you are in the [facility]. DO NOT GO TO THE EMERGENCY ROOM documented in this encounter [facility] 11-10-2022 Evaluation + Plan note Associated Problem(s): Antepartum anemia continues to take iron BID - normal h/h on 10/29 [facility] 11-10-2022 Miscellaneous Notes Associated Problem(s): Antepartum anemia continues to take iron BID - normal h/h on 10/29 documented in this encounter [facility] 11-10-2022 History of Presen t illness Narrative PLAN: Antepartum anemia continues to take iron BID - normal h/h on 10/29 ASSESSESMENT: No diagnosis found. She is here for 33w6d OB visit. Denies cramping, leaking of fluid, or bleeding Baby is moving well PHYSICAL EXAM: BP 117/74 Pulse 80 Wt 186 lb (84.4 kg) LMP 03/25/2022 BMI 30.95 kg/m I have reviewed her pertinent history, lab results, medications and problem list. See episode for any changes. Well appearing, Alert & oriented Skin warm & dry Normal range of motion in all extremities. Abdomen soft nontender Normal resp effort Tdap done Urine culture was not sent last visit. Is asymptomatic today. Answered questions regarding latch and over supply. Recommend sunflower lethicin supplement after delivery. RAPHAEL Saucedo CNM 11/10/22 Follow up in about 2 weeks (around 11/24/2022) for RHYS. documented in this encounter [facility] 11-10-2022 Instructions RAPHAEL Saucedo CNM - 11/10/2022 1:30 PM EDT What is group B streptococcus (GBS)? Group B streptococcus is one of the many types of bacteria that live in the body and usually do not cause serious illness. It is found in the digestive, urinary, and reproductive tracts of men and women. In women, it can be found in the vagina and rectum. GBS is not a sexually transmitted infection (STI). Also, although the names are similar, GBS is different from group A streptococcus, the bacteria that causes strep throat. Why is GBS a concern for women? Most women who are colonized with GBS have no symptoms or health effects. In a small number of women, GBS can cause infections of the uterus and urinary tract. A woman who is colonized with GBS late in her can pass it to her baby during labor. What are the types of GBS infection in newborns? There are two types of GBS infections in newborns: 1) early-onset infections and 2) late-onset infections. Both types of infections can be serious. What are early-onset GBS infections? Early-onset infections occur during the first week of life, generally within the first 24-48 hours after . These infections can occur as the baby moves through the canal of a woman who is colonized with GBS. Only a few babies who are exposed to GBS develop an infection. Certain factors, such as , may increase the risk of a baby becoming infected. The most common problems caused by early-onset GBS infections are lung infections, blood infections, and meningitis. What are late-onset GBS infections? These infections occur after the first 6 days of life. Late-onset infections may be passed from the mother to the baby during or they may be caused by contact with other people who are colonized with GBS. Late-onset infection can lead to meningitis and other diseases, such as pneumonia. Can these infections be prevented in newborns? GBS testing late in and treatment during labor can help prevent early-onset infections. However, it does not prevent late-onset infections. It is important to recognize the signs and symptoms of late-onset GBS infection in your baby: Slowness or inactivity Irritability Poor feeding Vomiting High fever If your baby has any of these signs or symptoms, contact your resistor inspector right away. When are women tested for GBS? To help prevent early-onset GBS infection, women are tested for GBS late in , between weeks 35 and 37. The test is called a culture. In this test, a swab is used to take a sample from the woman s vagina and rectum. This procedure is quick and not painful. The sample is sent to a lab where it is grown in a special substance. What if the test results are positive? If results of the culture test are positive, showing that GBS is present, you most likely will receive treatment with antibiotics during labor to help prevent GBS from being passed to your baby. Antibiotics help get rid of some of the bacteria that can harm the baby during . The antibiotics work only if they are given during labor. If treatment is given earlier in , the bacteria may regrow and be present during labor. Penicillin is the antibiotic that is most often given to prevent early-onset GBS infection in newborns. What if I am allergic to penicillin? If you are allergic to penicillin, tell your health medicare insurance specialist before you are tested for GBS. Women with mild allergic reactions can take an antibiotic called cefazolin. If you have had a severe reaction to penicillin, such as hives or anaphylaxis, the bacteria in the sample need to be tested to determine the choice of antibiotic. What if I already had a baby who had a GBS infection? If you had a previous baby with GBS infection or if your urine has GBS bacteria during this , you are at high risk of passing GBS on to your baby during labor and delivery. You will receive treatment during labor to protect your baby from infection. You will not need to be tested between weeks 35 and 37 of . What if I am having a planned ? If you are having a planned , you do not need to receive antibiotics for GBS during delivery if your labor has not begun or the amniotic sac has not ruptured (your water has not broken). However, you should still be tested for GBS because labor may occur before the planned . If your test result is positive, your baby may need to be monitored for GBS infection after . If you have further questions, contact your provider. Copyright December 2016 by the [employer] How to contact us: During office hours please call the office: [phone] After hours answering service phone number: [phone] Please call if you experience any of the following: LABOR: Contractions that you feel 4-6 times per hour. It may feel like lower abdominal cramping, or low back pain that comes and goes with stomach tightening. If you notice this, lie down on your side and drink 2 bottles of water. Rest and fluids is normally enough to calm things down. If after 1-2 hours the contractions don't get better, then call us. BLEEDING: Blood tinged mucous discharge is not uncommon, especially if you have had an exam in the office recently or sexual intercourse. However if you are bleeding like a period, you should call us WATER BREAKS: You may experience in increase in vaginal secretions near the time of labor, but if you think your water broke, please call us. DECREASED MOVEMENT: Baby movements change in the last trimester. They tend to be not as vigorous, and change to nudges and rolls. But, if you feel like these movement are not normal, please call our office during office hours or the answering service after hours. If you are told to go to OB triage at [facility]; The Main Entrance to [facility] is [address]. Use your GPS if you need directions Locate the Main Parking Deck Walk across the bridge on the 1st floor and you will go to the second floor by using the H elevator once you are in the [facility]. DO NOT GO TO THE EMERGENCY ROOM [place] lethicin supplement documented in this encounter [facility] 10-29-2022 Evaluation + Plan note Associated Problem(s): Antepartum anemia Repeat cbc done today Pt continues on fe daily [facility] 10-29-2022 Miscellaneous Notes Associated Problem(s): Antepartum anemia Repeat cbc done today Pt continues on fe daily Associated Problem(s): care, antepartum Denies cramping, leaking, and bleeding.Endorses good FM Having some intermittent dysuria and requesting urine culture. Denies foul odor but noticed some occassional cloudiness documented in this encounter [facility] 10-29-2022 Evaluation + Plan note Associated Problem(s): care, antepartum Denies cramping, leaking, and bleeding.Endorses good FM Having some intermittent dysuria and requesting urine culture. Denies foul odor but noticed some occassional cloudiness [facility] 10-29-2022 History of Presen t illness Narrative She is here for 32w1d OB visit. Information on AVS Information on Immediate PP LARCs 3rd trimester check list - information re; classes, vaccines, car seat and crib help, Who and when to call- labor, bleeding loss of fluid and decreased movements Where to go and how to get there.Good FM, call with dec FM. control options discussed. ASSESSESMENT: Diagnosis Plan 1. care, antepartum CBC Urine culture 2. 32 weeks gestation of 3. Antepartum anemia CBC 4. Dysuria during , antepartum Urine culture PLAN: care, antepartum Denies cramping, leaking, and bleeding.Endorses good FM Having some intermittent dysuria and requesting urine culture. Denies foul odor but noticed some occassional cloudiness Antepartum anemia Repeat cbc done today Pt continues on fe daily PHYSICAL EXAM: Visit Vitals BP 116/70 Pulse 72 I have reviewed her pertinent history, lab results, medications, and problem list. See episode for any changes. Well appearing, Alert & oriented Skin warm & dry Normal range of motion in all extremities. Abdomen soft nontender Normal resp effort Follow up in about 2 weeks (around 11/12/2022) for RHYS. This note was electronically signed by Mihaela Chávez CNM at 1:48 PM on 10/29/2022. documented in this encounter [facility] 10-29-2022 Instructions Mihaela Chávez CNM - 10/29/2022 1:30 PM EDT Immediate Post Control Options at [facility] Before you go home from the hospital, it is a good idea to have a plan for contraception. The [facility] mandates that you be offered placement of a Long Activing Reversible Contraception (LARC) method during your hospital stay. [facility] will offer you the option of having a LARC placed after your delivery and before you are discharged. Long active reversible contraceptive choices include the Mirena IUD, Paragard IUD or a hormonal implant called Nexplenon implant. The following serves as educational material so you can better understand your options A contraceptive is a way to prevent you from becoming . Contraception can be: A practice like abstinence (not having intercourse). A barrier like a condom or diaphragm to keep sperm from reaching the egg. Prescription hormones (the pill, shot, patch or vaginal ring) that keep a woman from releasing an egg each month. A device Like an intrauterine contraceptive (IUD) that thickens protective mucus and prevents sperm from reaching the egg. Some IUDs also contain hormones. Surgery to permanently prevent release of spern (vasectomy) or to prevent sperm from reahing the egg (tubal ligation). No method of control, except abstinence, is 100% effective against or dmeond sexually trasmitted infection, including the Human Immunodeficiency Virus (HIV) Intrauterine Contraceptives - 2 choices Paragard Copper T IUD which lasts for 10 years and contains copper Mirena IUD which contains a hormone called Levonorgestrel and lasts 5 years. In addition to contraception, a hormonal IUD may decrease bleeding And cramping during your menstrual cycle over time Intrauterine contraceptives are 98-99% effective a preventing . They can be inserted shortly aft the delivery of the baby's placenta. Risks of IUD Uterine cramping pushes the device out of the uterus called expulsion). This is more common when the IUD is placed just after delivery (24% versus 10% if placed later). If this happens you could become or need the IUD replaced Puncturing the uterus (called perforation) rarely occurs, but sometimes surgery is needed to remove the IUD Accidental (less than 1%). If this occurs it could result in an increased risk for ectopic or tubal prenancy Some women complain of more cramping with the IUD, but this usually decreased over time. Your doctor or top closer may recommend one device other the other based on your medical history. Hormonal Implant Nexplenon Implant lasts for 3 years and contains a hormone called Etonogestrel and is the most reliable non-surgical contraceptive Nexplanon may also help with painful periods. The hormonal mplant is 99% effective and even more effective than surgical methods. The implant is inserted under the skin of your upper arm before you go home. Risks of Hormonal Implants May decrease your milk supply when if inserted prior to 4 weeks post May cause irrgular bleeding or spotting, or periods may stop Hormonal methods of contracetpion may increase your risk of blood clots, especially if you smoke. Your provider will discuss the best methods based on your medical history. ========= THIRD TRIMESTER - GETTING READY FOR BABY Choose a resistor inspector or primary care practice for your baby - When you are admitted to the hospital, you will need to name a person or a practice for them to call when your baby is born to take care of the baby. Take classes - childbirth classes, class, baby care, CPR etc. You can sign up for these classes on the [employer] website Get your TDaP vaccine booster - The CDC recommends every woman receive the TDaP (whooping cough) vaccine during every between 27 and 36 weeks. We normally have this in stock at the office and can administer it there for you. Anyone that is going to have close contact with the baby should also get this vaccine. Get the flu vaccine - If it is flu season. If you have questions about it, ask us. YES is safe! Pre register at the hospital - The easiest way is to go online at [employer] or call [phone] Take a tour - You can sign up for a tour using the [employer] website or call Car Seat and Crib help. Some Insurances will help with discounts for car seats. There are programs in [facility] to help with cribs. Contact: to see if you qualify. If you want more info, the web site for [facility] residents [email or web address]/p ages/[email or web address]-svs-Zzsob-rtr-Yc ds.html Or in [facility] -Safe Kids, [facility] Department [email or web address] Podotree/media/[email or web address]-Health/D ocuments/Sjqmo-znb-Lpib-Flyer-wi -pics.pdf If you have had a history of depression - please consider scheduling some time with your counselor or talking to us about helping you find a counselor. Your risk for having post depression is higher than if you did not have a history of depression. We want to help. Childbirth Education Classes at [facility] Available Classes: Schedule on Line or call [phone] Childbirth Education Baby Care Class CPR Class Class Grandparents Class Maternity Tour: [phone] Pre-register Online: [email or web address] [email or web address] [email or web address]/[email or web address] tration Website: [employer]/mybaby ======== How to contact us: During office hours please call the office: [phone] After hours answering service phone number: [phone] Please call if you experience any of the following: LABOR: Contractions that you feel 4-6 times per hour. It may feel like lower abdominal cramping, or low back pain that comes and goes with stomach tightening. If you notice this, lie down on your side and drink 2 bottles of water. Rest and fluids is normally enough to calm things down. If after 1-2 hours the contractions don't get better, then call us. BLEEDING: Blood tinged mucous discharge is not uncommon, especially if you have had an exam in the office recently or sexual intercourse. However if you are bleeding like a period, you should call us WATER BREAKS: You may experience in increase in vaginal secretions near the time of labor, but if you think your water broke, please call us. DECREASED MOVEMENT: Baby movements change in the last trimester. They tend to be not as vigorous, and change to nudges and rolls. But, if you feel like these movement are not normal, please call our office during office hours or the answering service after hours. If you are told to go to OB triage at [facility]; The Main Entrance to [facility] is [address]. Use your GPS if you need directions Locate the Main Parking Deck Walk across the bridge on the 1st floor and you will go to the second floor by using the H elevator once you are in the [place] [facility]. DO NOT GO TO THE EMERGENCY ROOM documented in this encounter [facility] 10-13-2022 Evaluation + Plan note Associated Problem(s): Antepartum anemia Continues to take iron bid [facility] 10-13-2022 Miscellaneous Notes Associated Problem(s): Antepartum anemia Continues to take iron bid documented in this encounter [facility] 10-13-2022 History of Presen t illness Narrative PLAN: Antepartum anemia Continues to take iron bid ASSESSESMENT: No diagnosis found. She is here for 29w6d OB visit. Denies cramping, leaking of fluid, or bleeding Baby is moving well 28 week labs reviewed WNL - is taking iron PHYSICAL EXAM: BP 116/73 Pulse 85 Wt 181 lb (82.1 kg) LMP 03/25/2022 BMI 30.12 kg/m I have reviewed her pertinent history, lab results, medications and problem list. See episode for any changes. Well appearing, Alert & oriented Skin warm & dry Normal range of motion in all extremities. Abdomen soft nontender Normal resp effort Tdap done RAPHAEL Saucedo CNM 10/13/22 No follow-ups on file. documented in this encounter [facility] 10-13-2022 Instructions RAPHAEL Saucedo CNM - 10/13/2022 10:45 AM EDT Immediate Post Control Options at [facility] Before you go home from the hospital, it is a good idea to have a plan for contraception. The [facility] mandates that you be offered placement of a Long Activing Reversible Contraception (LARC) method during your hospital stay. [facility] will offer you the option of having a LARC placed after your delivery and before you are discharged. Long active reversible contraceptive choices include the Mirena IUD, Paragard IUD or a hormonal implant called Nexplenon implant. The following serves as educational material so you can better understand your options A contraceptive is a way to prevent you from becoming . Contraception can be: A practice like abstinence (not having intercourse). A barrier like a condom or diaphragm to keep sperm from reaching the egg. Prescription hormones (the pill, shot, patch or vaginal ring) that keep a woman from releasing an egg each month. A device Like an intrauterine contraceptive (IUD) that thickens protective mucus and prevents sperm from reaching the egg. Some IUDs also contain hormones. Surgery to permanently prevent release of spern (vasectomy) or to prevent sperm from reahing the egg (tubal ligation). No method of control, except abstinence, is 100% effective against or demond sexually trasmitted infection, including the Human Immunodeficiency Virus (HIV) Intrauterine Contraceptives - 2 choices Paragard Copper T IUD which lasts for 10 years and contains copper Mirena IUD which contains a hormone called Levonorgestrel and lasts 5 years. In addition to contraception, a hormonal IUD may decrease bleeding And cramping during your menstrual cycle over time Intrauterine contraceptives are 98-99% effective a preventing . They can be inserted shortly aft the delivery of the baby's placenta. Risks of IUD Uterine cramping pushes the device out of the uterus called expulsion). This is more common when the IUD is placed just after delivery (24% versus 10% if placed later). If this happens you could become or need the IUD replaced Puncturing the uterus (called perforation) rarely occurs, but sometimes surgery is needed to remove the IUD Accidental (less than 1%). If this occurs it could result in an increased risk for ectopic or tubal prenancy Some women complain of more cramping with the IUD, but this usually decreased over time. Your doctor or top closer may recommend one device other the other based on your medical history. Hormonal Implant Nexplenon Implant lasts for 3 years and contains a hormone called Etonogestrel and is the most reliable non-surgical contraceptive Nexplanon may also help with painful periods. The hormonal mplant is 99% effective and even more effective than surgical methods. The implant is inserted under the skin of your upper arm before you go home. Risks of Hormonal Implants May decrease your milk supply when if inserted prior to 4 weeks post May cause irrgular bleeding or spotting, or periods may stop Hormonal methods of contracetpion may increase your risk of blood clots, especially if you smoke. Your provider will discuss the best methods based on your medical history. ========= THIRD TRIMESTER - GETTING READY FOR BABY Choose a resistor inspector or primary care practice for your baby - When you are admitted to the hospital, you will need to name a person or a practice for them to call when your baby is born to take care of the baby. Take classes - childbirth classes, class, baby care, infant CPR etc. You can sign up for these classes on the [facility] website Get your TDaP vaccine booster - The CDC recommends every woman receive the TDaP (whooping cough) vaccine during every between 27 and 36 weeks. We normally have this in stock at the office and can administer it there for you. Anyone that is going to have close contact with the baby should also get this vaccine. Get the flu vaccine - If it is flu season. If you have questions about it, ask us. YES is safe! Pre register at the hospital - The easiest way is to go online at [employer] or call [phone] Take a tour - You can sign up for a tour using the [employer] website or call Car Seat and Crib help. Some Insurances will help with discounts for car seats. There are programs in [facility] to help with cribs. Contact: to see if you qualify. If you want more info, the web site for [facility] residents [email or web address]/p ages/Lupt-Cwvah-rif-Zjhdq-xpl-Ke ds.html Or in [facility] -Safe Kids, [facility] http://www.[facility]/S [employer]/media/Public-Health/D ocuments/Sffpe-elm-Rwdj-Flyer-wi -pics.pdf If you have had a history of depression - please consider scheduling some time with your counselor or talking to us about helping you find a counselor. Your risk for having post depression is higher than if you did not have a history of depression. We want to help. Childbirth Education Classes at [facility] Available Classes: Schedule on Line or call [phone] Childbirth Education Baby Care Class CPR Class Class Grandparents Class Maternity Tour: [phone] Pre-register Online: [email or web address]/karely [email or web address]/womens/aboutourservi hiro/maternity-services/pre-narendra tration Website: [employer]/mybaby ======== How to contact us: During office hours please call the office: [phone] After hours answering service phone number: [phone] Please call if you experience any of the following: LABOR: Contractions that you feel 4-6 times per hour. It may feel like lower abdominal cramping, or low back pain that comes and goes with stomach tightening. If you notice this, lie down on your side and drink 2 bottles of water. Rest and fluids is normally enough to calm things down. If after 1-2 hours the contractions don't get better, then call us. BLEEDING: Blood tinged mucous discharge is not uncommon, especially if you have had an exam in the office recently or sexual intercourse. However if you are bleeding like a period, you should call us WATER BREAKS: You may experience in increase in vaginal secretions near the time of labor, but if you think your water broke, please call us. DECREASED MOVEMENT: Baby movements change in the last trimester. They tend to be not as vigorous, and change to nudges and rolls. But, if you feel like these movement are not normal, please call our office during office hours or the answering service after hours. If you are told to go to OB triage at [facility]; The Main Entrance to [facility] is [address] [place] [address]. Use your GPS if you need directions Locate the Main Parking Deck Walk across the bridge on the 1st floor and you will go to the second floor by using the H elevator once you are in the [facility]. DO NOT GO TO THE EMERGENCY ROOM documented in this encounter [facility] 10-07-2022 Telephone encounter Note orders [facility] 10-07-2022 Miscellaneous Notes orders documented in this encounter [facility] 09-29-2022 Evaluation + Plan note Associated Problem(s): care, antepartum Discussed glucola, patient planning to do today or tomorrow, will add ferritin for some mild RLS symptoms Discussed insomnia, will check hgb and ferratin, but can use melatonin or unisom as needed Tdap given today Reviewed si/sx of labor, FM and kick counts, and when to go to L&D. Does not need to call office before going to triage. [facility] 09-29-2022 Miscellaneous Notes Associated Problem(s): care, antepartum Discussed glucola, patient planning to do today or tomorrow, will add ferritin for some mild RLS symptoms Discussed insomnia, will check hgb and ferratin, but can use melatonin or unisom as needed Tdap given today Reviewed si/sx of labor, FM and kick counts, and when to go to L&D. Does not need to call office before going to triage. Addended by: JANAY PEREZ on: 09/29/2022 11:28 AM Modules accepted: Orders documented in this encounter [facility] 09-29-2022 History of Presen t illness Narrative PLAN: care, antepartum Discussed glucola, patient planning to do today or tomorrow, will add ferritin for some mild RLS symptoms Discussed insomnia, will check hgb and ferratin, but can use melatonin or unisom as needed Tdap given today Reviewed si/sx of labor, FM and kick counts, and when to go to L&D. Does not need to call office before going to triage. ASSESSESMENT: Diagnosis Plan 1. care, antepartum Ferritin She is here for 27w6d OB visit. Denies cramping, leaking of fluid, or bleeding PHYSICAL EXAM: BP 118/72 Wt 181 lb (82.1 kg) LMP 03/25/2022 BMI 30.12 kg/m I have reviewed her pertinent history, lab results, medications and problem list. See episode for any changes. Well appearing, Alert & oriented Skin warm & dry Normal range of motion in all extremities. Abdomen soft nontender Normal resp effort Glenis Grier MD 09/29/22 Follow up in about 2 weeks (around 10/13/2022) for RHYS. Pt given TDaP injection today. Offered her VIS information, she declined it. Had her fill out and sign consent form. Pt wanted injection given in her right deltoid. Cleaned site with alcohol wipe. Administered injection. Placed bandage. Pt tolerated injection well. [facility]: 53441-404-90 LOT #: [id number] EXP: 12/31/2024 documented in this encounter [facility] 09-29-2022 Note Addended by: JANAY ARTHUR RD on: 09/29/2022 11:28 AM Modules accepted: Orders [facility] 09-29-2022 Note Addended by: JANAY ARTHUR RD on: 09/29/2022 11:28 AM Modules accepted: Orders [facility] 09-02-2022 Telephone encounter Note S-Pt is 24 weeks and would like to know if ok to use Flonase nasal spray for congestion and allergies R-Advised that it is fine to use Flonase, no further questions. Reason for Disposition Caller has medicine question only, adult not sick, and triager answers question Answer Assessment - Initial Assessment Questions . Protocols used: Medication Question [id number] [facility] 09-02-2022 Miscellaneous Notes S-Pt is 24 weeks and would like to know if ok to use Flonase nasal spray for congestion and allergies R-Advised that it is fine to use Flonase, no further questions. Reason for Disposition Caller has medicine question only, adult not sick, and triager answers question Answer Assessment - Initial Assessment Questions . Protocols used: Medication Question [id number] documented in this encounter [facility] 08-13-2022 Evaluation + Plan note Associated Problem(s): care, antepartum She is here for 21w1d OB visit. Denies cramping, leaking, and bleeding. Feeling well. Reviewed genetic testing if done. Reviewed preliminary ultrasound results as follows: Single live IUP in a variable presentation. Cardiac activity and movement are present. The profile, 3VV,3VV,4CH,LVOT,RVOT were visualized and appear normal. The remainder of anatomy was evaluated on 07/28/22. has begun to feel movement. Information on AVS; Skin condition during Second trimester body changes Diet and Exercise [facility] 08-13-2022 Miscellaneous Notes Associated Problem(s): care, antepartum She is here for 21w1d OB visit. Denies cramping, leaking, and bleeding. Feeling well. Reviewed genetic testing if done. Reviewed preliminary ultrasound results as follows: Single live IUP in a variable presentation. Cardiac activity and movement are present. The profile, 3VV,3VV,4CH,LVOT,RVOT were visualized and appear normal. The remainder of anatomy was evaluated on 07/28/22. has begun to feel movement. Information on AVS; Skin condition during Second trimester body changes Diet and Exercise documented in this encounter [facility] 08-13-2022 History of Presen t illness Narrative A clinical staff anesthesiologist was offered to be present during her exam. The patient: declined ASSESSESMENT / PLAN care, antepartum She is here for 21w1d OB visit. Denies cramping, leaking, and bleeding. Feeling well. Reviewed genetic testing if done. Reviewed preliminary ultrasound results as follows: Single live IUP in a variable presentation. Cardiac activity and movement are present. The profile, 3VV,3VV,4CH,LVOT,RVOT were visualized and appear normal. The remainder of anatomy was evaluated on 07/28/22. has begun to feel movement. Information on AVS; Skin condition during Second trimester body changes Diet and Exercise Patient Active Problem List Diagnosis Breast abscess care, antepartum Family history of chromosomal microdeletion PHYSICAL EXAM: BP 108/70 Pulse 67 Wt 171 lb 6.4 oz (77.7 kg) LMP 03/25/2022 BMI 28.52 kg/m I have reviewed her pertinent history, lab results, medications, and problem list. See episode for any changes. Well appearing, Alert & oriented Skin warm & dry Normal range of motion in all extremities. Abdomen soft nontender Normal resp effort Diagnosis Plan 1. care, antepartum Follow up in about 4 weeks (around 09/10/2022) for RAPHAEL Colon CNM 08/13/22 documented in this encounter [facility] 08-13-2022 Instructions RAPHAEL Pink CNM - 08/13/2022 10:30 AM EDT Skin Conditions During What are some of the common skin changes that occur during ? Many women notice changes to their skin, nails, and hair during . Some of the most common changes include the following: Dark spots on the breasts, nipples, or inner thighs Melasma--brown patches on the face around the cheeks, nose, and forehead Linea nigra--a dark line that runs from the navel to the pubic hair Stretch sanchez Acne Spider veins Varicose veins Changes in nail and hair growth What causes these skin changes during ? Some are due to changes in hormone levels that occur during . For most skin changes, however, health acute care nurse are not sure of the exact cause. Why do dark spots and patches appear on the skin during ? Dark spots and patches are caused by an increase in the body s melanin--a natural substance that gives color to the skin and hair. Dark spots and melasma usually fade on their own after you give . Some women, however, may have dark patches that last for years. To help prevent melasma from getting worse, wear sunscreen and a wide-brimmed hat every day when you are outside. What are stretch sanchez? As your belly grows during , your skin may become marked with reddish lines called stretch sanchez. By the third trimester, many women commonly have stretch sanchez on the abdomen, buttocks, breasts, or thighs. Using a heavy moisturizer may help keep your skin soft, but it will not help get rid of stretch sanchez. Most stretch sanchez fade after the baby is born, but they may never disappear completely. Is acne common during ? Many women have acne during . Some already have acne and notice that it gets worse during . Other women who may always have had clear skin will develop acne while they are . How can I treat my skin if I get acne during ? If you get acne during , take these steps to treat your skin: Wash your face twice a day with a mild cleanser and lukewarm water. If you have oily hair, shampoo every day and try to keep your hair off your face. Avoid picking or squeezing acne sores to lessen possible scarring. Choose oil-free cosmetics. Can sruy-rih-xcdvajg medications be used during to treat acne? Owkr-fbn-nqossxm (OTC) products containing the following ingredients can be used during : Topical benzoyl peroxide Azelaic acid Topical salicylic acid Glycolic acid If you want to use an OTC product that contains an ingredient not on this list, contact your health medicare insurance specialist. Can prescription medications be used during to treat acne? Some prescription acne medications should not be used while you are : Hormonal therapy--Several medications that block specific hormones can be used to treat acne. Their use during is not recommended due to the risk of defects. Isotretinoin--This drug is a form of vitamin A. It may cause severe defects in fetuses, including intellectual disabilities, life-threatening heart and brain defects, and other physical deformities. Oral tetracyclines--This antibiotic can cause discoloration of the fetus s teeth if it is taken after the fourth month of and also can affect the growth of the fetus s bones as long as the medication is taken. Topical retinoids--These medications are a form of vitamin A and are in the same drug family as isotretinoin. Unlike isotretinoin, topical retinoids are applied to the skin, and the amount of medication absorbed by the body is low. However, it is generally recommended that use of these medications be avoided during . Some retinoids are available by prescription. But other retinoids can be found in some OTC products. Read labels carefully. What causes spider veins? Hormonal changes and the higher amounts of blood in your body during can cause tiny red veins, known as spider veins, to appear on your face, neck, and arms. The redness should fade after the baby is born. What causes varicose veins? The weight and pressure of your uterus can decrease blood flow from your lower body and cause the veins in your legs to become swollen, sore, and blue. These are called varicose veins. Varicose veins also can appear on your vulva and in your vagina and rectum (usually called hemorrhoids). In most cases, varicose veins are a cosmetic problem that will go away after delivery. Second Trimester What to expect The second trimester of sanchez a turning point for mother and fetus. The mother usually begins to feel better and will start showing the more. The fetus has now developed all its organs and systems and will now focus on growing in size and weight. During the second trimester, the umbilical cord continues to thicken as it carries nourishment to the fetus. However, harmful substances also pass through the umbilical cord to the fetus, so care should be taken to avoid alcohol, tobacco and other known hazards. During the second trimester, both the mother's body and the fetus continue to grow. Baby Development Now that all the major organs and systems have formed in the fetus, the following six months will be spent growing. The weight of the fetus will multiply more than seven times over the next few months, as the fetus becomes a baby that can survive outside of the uterus. By the end of the second trimester , the fetus s development will be about 13 to 16 inches long and weighs about 2 to 3 pounds. development during the second trimester includes the following: The fetus kicks, moves, and can turn from side to side. The eyes have been gradually moving to the front of the face and the ears have moved from the neck to the sides of the head. The fetus can hear the mother's voice. A creamy white substance (called vernix caseosa, or simply vernix) begins to appear on the fetus and helps to protect the thin skin. Vernix is gradually absorbed by the skin, but some may be seen on babies even after . The fetus is developing reflexes such as swallowing and sucking. The fetus can respond to certain stimuli. The placenta is fully developed. The brain will undergo its most important period of growth from the 5th month on. Fingernails have grown on the tips of the fingers and toes, and the fingers and toes are fully . The fetus goes through cycles of sleep and wakefulness. Skin is wrinkly and red, covered with soft, downy hair (called lanugo). Hair is growing on the head of the fetus. Fat begins to form on the fetus. Eyelids are beginning to open and the eyebrows and eyelashes are visible. Fingerprints and toe prints have formed. Rapid growth is continuing in size and weight. The 20th week sanchez the senior living point of the . Changes to a Mother s Body The second trimester of is the most physically enjoyable for most women. Morning sickness usually abates by this time and the extreme fatigue and breast tenderness usually subsides. These changes can be attributed to a decrease in levels of human chorionic gonadotropin (hCG) hormone and an adjustment to the levels of estrogen and progesterone hormones. The following is a list of changes and symptoms that may occur during the second trimester: Appetite may increase. The mother may be able to feel the movement of the fetus for the first time - a phenomenon called quickening - by 20 weeks. The uterus has grown to the height of the belly button, making the visible. The skin on the belly may itch as it grows and there may be pain down the sides of the body as the uterus stretches. The lower abdomen may ache as ligaments stretch to support the uterus. The need to frequently urinate may decrease as the uterus grows out of the pelvic cavity, relieving pressure on the bladder. A mother's nose may become congested and she may experience nosebleeds. This is due to the increase in hormones (estrogen and progesterone) that affect the mucous membranes in the nose. A woman's gums become spongier and may bleed easily. This is due to the increase in hormones (estrogen and progesterone) that affect the mucous membranes in the mouth. Varicose veins and hemorrhoids may appear. A woman may have a white-colored vaginal discharge called leukorrhea. (A colored or bloody discharge may signal possible complications and should be examined immediately.) The increasing weight gain may cause backaches. Skin pigmentation may change on the face or abdomen due to the hormones. Heart burn, indigestion and constipation may continue. Second trimester visits During the second and third trimester visits, your health care provider may check the following, depending on your current medical condition and the health of the fetus: Any current symptoms or discomforts Mother's weight Mother's blood pressure Urine test - to detect albumin (a protein) which may indicate preeclampsia or toxemia and sugar (which may indicate hyperglycemia) Growth, size, and development of the fetus Size of the uterus - after approximately 12 weeks of gestation, the uterus can be felt through the abdominal wall Height of the fundus (top of the uterus) heartbeat Eating Health Food According to the FDA, about 300 extra calories are needed daily to maintain a healthy . These calories should come from a balanced diet of protein, fruits, vegetables, and whole grains, with sweets and fats kept to a minimum. A healthy, well-balanced diet during can also help to minimize some symptoms such as nausea and constipation. The ruth to a healthy is making sure you have a good nutrient dense diet. This means that the foods you eat have a low amount of calories and sugars and a high amount of vitamins, minerals and protein. Common examples of nutrient dense foods are colorful fruits and vegetables especially those with dark, rich colors such as leafy green vegetables, berries and carrots. Whole grains, nuts and seeds are also considered nutrient dense. During your , You and your baby need about 60-100 grams of protein every day. Protein rich foods include meat, fish, eggs, almonds cottage cheese, Argentine yogurt, low fat cheese and low fat milk. Most women notice that if they eat 60-100 grams of protein every day and eat 7-12 cups of veggies and fruit every day that they don't crave sweet, simple carbohydrates such as bread, bagels, cookies, chips and sugary foods. Simple carbohydrates need to be eaten in moderation throughout as excess carbohydrate intake can cause excess weight gain which can increase your risk for gestational diabetes, gestational hypertension and excessive growth of the baby Fluid intake is also an important part of healthy nutrition. Women can take in enough fluids by drinking 6 to 8 glasses of water each day, in addition to the fluids in juices and soups. An expectant mother should talk with her health care provider or top closer about restricting her intake of caffeine and artificial sweeteners. All alcohol should be avoided in . Do: Exercise during : Regular exercise during , with the approval of your physician or top closer, can often help to minimize the daily physical discomforts and help with the recovery after the baby is born. There is evidence that physical activity may be especially beneficial for women with gestational diabetes. Women who exercised and were physically fit before can safely continue exercising throughout the . Women who were inactive before or who have medical or complications should consult with their physician or top closer before beginning any exercise during . All women should be evaluated by their physician or top closer before beginning or continuing an exercise program while . Exercise for women may not be safe if they have any of the following conditions: labor in current or past pregnancies Vaginal bleeding Cervical problems Leaking of amniotic fluid Shortness of breath Dizziness and/or fainting Decreased activity or other complications Increased heart rate (tachycardia) Certain health problems, such as high blood pressure or heart disease Types of exercise to avoid during : Horseback riding Water skiing Scuba diving High altitude skiing Contact sports Any exercise that can cause a serious fall Exercising on your back after the first trimester (because of reduced blood flow to the uterus) Vigorous exercise in hot, humid weather, as women are less efficient at exchanging heat Exercise involving the Valsalva maneuver (holding one's breath during exertion), which can increase intra-abdominal pressure on the uterus documented in this encounter [facility] 07-19-2022 Telephone encounter Note Name of caller: Macy (Per CRM) Contact phone number: [phone] Relationship to Patient: Patient Provider: Dr. Tapia Practice: [facility] Chief Complaint/Reason for Call: Patient sent following message per CRM sent today: I would like my mental health counseling referral sent to [facility] and the Fax # is [phone]. The number should be in the previous message I sent. Macy Flores Please advise - patient was informed it can take 24-48 hours for Doctor to respond. Best time of day caller can be reached: any Patient advised that office/PCP has 24-48 business hours to return their call: yes [facility] 07-19-2022 Miscellaneous Notes Name of caller: Macy (Per CRM) Contact phone number: [phone] Relationship to Patient: Patient Provider: Dr. Tapia Practice: [facility] Chief Complaint/Reason for Call: Patient sent following message per CRM sent today: I would like my mental health counseling referral sent to [facility] and the Fax # is [phone]. The number should be in the previous message I sent. Macy Flores Please advise - patient was informed it can take 24-48 hours for Doctor to respond. Best time of day caller can be reached: any Patient advised that office/PCP has 24-48 business hours to return their call: yes Pt called back and states that she has lack of motivation with no suicidal ideations nor feelings of self harm or hurting others. Pt appreciates the referral and will schedule. Left message to return call Can you please contact this patient and see how she is doing? I am placing the referral order that she requests, but I don't see depression in her history and she didn't mention anything to me at her last visit. If she has any concerning symptoms of depression please get her scheduled hiwot for a visit. Name of caller: Macy Flores Contact phone number: [phone] Relationship to Patient: patient Provider: Agustina Tapia Practice: [facility] Chief Complaint/Reason for Call: Pt states she would like a referral for depression counseling [facility] at [phone] and notified once complete for her insurance company to cover cost of services . Please advise. Thank you Best time of day caller can be reached: Any Patient advised that office/PCP has 24-48 business hours to return their call: Yes documented in this encounter [facility] 07-15-2022 Telephone encounter Note Pt called back and states that she has lack of motivation with no suicidal ideations nor feelings of self harm or hurting others. Pt appreciates the referral and will schedule. [facility] 07-15-2022 Miscellaneous Notes Pt called back and states that she has lack of motivation with no suicidal ideations nor feelings of self harm or hurting others. Pt appreciates the referral and will schedule. Left message to return call Can you please contact this patient and see how she is doing? I am placing the referral order that she requests, but I don't see depression in her history and she didn't mention anything to me at her last visit. If she has any concerning symptoms of depression please get her scheduled hiwot for a visit. Name of caller: Macy Flores Contact phone number: [phone] Relationship to Patient: patient Provider: Agustina Tapia Practice: [facility] Chief Complaint/Reason for Call: Pt states she would like a referral for depression counseling faxed to [facility] at [phone] and notified once complete for her insurance company to cover cost of services . Please advise. Thank you Best time of day caller can be reached: Any Patient advised that office/PCP has 24-48 business hours to return their call: Yes documented in this encounter [facility] 07-15-2022 Telephone encounter Note Left message to return call [facility] 07-14-2022 Telephone encounter Note Can you please contact this patient and see how she is doing? I am placing the referral order that she requests, but I don't see depression in her history and she didn't mention anything to me at her last visit. If she has any concerning symptoms of depression please get her scheduled hiwot for a visit. [facility] Work Phone: 07-13-2022 Telephone encounter Note Name of caller: Macy Flores Contact phone number: [phone] Relationship to Patient: patient Provider: Agustina Tapia Practice: [facility] Chief Complaint/Reason for Call: Pt states she would like a referral for depression counseling faxed to [facility] at [phone] and notified once complete for her insurance company to cover cost of services . Please advise. Thank you Best time of day caller can be reached: Any Patient advised that office/PCP has 24-48 business hours to return their call: Yes [facility] 06-21-2022 History of Presen t illness Narrative Routine Office Visit: 1st trimester 06/21/22 HPI: Macy Flores is a 26 y.o. who presents for routine OB visit at 13w4d. KEO: Estimated Date of Delivery: 12/23/22 She denies cramping, bleeding, pain PHYSICAL EXAM: Assessment Heart Rate: 154, Movement: Absent Vitals Weight: 161 lb (73 kg), BP: 111/73 Well appearing, Alert & oriented Skin warm & dry Normal range of motion in all extremities. Abdomen soft nontender Normal resp effort ASSESSMENT: Diagnosis Plan 1. Encounter for supervision of other normal in second trimester 2. Encounter for screening for malformation US OB transvaginal US OB 14+ weeks anatomy scan 3. Encounter for screening for cervical length US OB transvaginal US OB 14+ weeks anatomy scan PLAN: No problem-specific Assessment & Plan notes found for this encounter. Orders placed today: Orders Placed This Encounter Procedures US OB transvaginal US OB 14+ weeks anatomy scan Follow Up: Visit date not found Agustina Tapia MD 06/21/22 documented in this encounter [facility] 05-20-2022 History of Presen t illness Narrative Urine dip negative HISTORY OF PRESENT ILLNESS: Presents today for initial OB appointment at 9w0d, Patient's last menstrual period was 03/25/2022., dating ultrasound completed and preliminary result reviewed with patient. US on 05/18/22 Single live IUP, 8w5d by ultrasound. This is not consistent with the previously established EDC. The EDC based on today's ultrasound is 12/23/22. Varicella or vaccinated for varicella as a child: yes. Cats: no. If yes, litter box precautions given. Desires tubal ligation: no. breast feeding. 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 Discussed sex option. Questions answered. Pt declined screening and elects to have no genetic screening tests. declined sex option. DO NOT DO - son with microdeletion on Ch 13, not affected Pt aware of the time sensitive nature of the screening and will let us know if she changes her mind about the testing. Reviewed carrier screening for SMA, Fragile X, Duchenne Muscular Dystrophy, and CF. Pt given previously screening. Neg x 4 ASA prescribed: No, Not Indicated Last BMI recorded: BMI Readings from Last 1 Encounters: 05/20/22 26.29 kg/m . Pregravid BMI: If BMI is 30 or over, history of gestational diabetes, or insulin resistance then early GCT ordered. REVIEW OF SYSTEMS: Constitutional: No fever, chills or malaise; No weight change. Positive for fatigue and appetite changes. HENT: No vision changes, Headache, Dizziness, Congestion Respiratory: Negative for cough and chest tightness Cardiovascular: Negative for chest pain, palpitations, and leg swelling. Breast: No breast abnormalities or lumps Gastrointestinal: No Indigestion, Heartburn, Diarrhea, Constipation,or Bowel Changes; No Bloody Stools. Intermittent nausea. Genito-Urinary: No dysuria, hematuria or nocturia. No urinary incontinence or vaginal discharge, itching, and odor. Musculoskeletal: Negative for back pain Skin: Negative for pallor and rash Neurological: Negative for seizures and headaches Allergic/Immunologic: Negative for environmental and food allergies Psych: Negative for depression, homicidal thoughts, suicidal thoughts, anxiety, and confusion MEDICATIONS: Current Outpatient Medications Medication Sig Dispense Refill doxylamine (Unisom) 25 MG tablet Take 25 mg by mouth if needed. Vit-Fe Fumarate-FA ( VITAMIN PO) Take by mouth. promethazine (Phenergan) 25 MG tablet Take 1 tablet (25 mg) by mouth every 4 hours. 90 tablet 1 pyridoxine (Vitamin B-6) 25 MG tablet Take 25 mg by mouth if needed. Docusate Sodium (DSS) 100 MG capsule Take 1 capsule by mouth 2 times daily as needed. ondansetron ODT (Zofran-ODT) 4 MG disintegrating tablet Take 1 tablet (4 mg) by mouth every 12 hours as needed for nausea or vomiting for up to 30 doses. Do not take with promethazine 30 tablet 1 No current facility-administered medications for this visit. ALLERGIES: Allergies as of 05/20/2022 (No Known Allergies) OB History Para Term AB Living 2 1 1 0 0 1 SAB IAB Ectopic Multiple Live Births 0 0 0 0 1 # Outcome Date GA Lbr Macario/2nd Weight Sex Delivery Anes PTL Lv 2 Current 1 Term 06/09/21 39w2d 8 lb (3.629 kg) M Vag-Spont ROHIT Comments: Induced for possible Cat II Name: ARTIE FLORES Apgar1: 8 Apgar5: 9 History reviewed. No pertinent past medical history. Past Surgical History: Procedure Laterality Date US ASP BREAST CYST LEFT (HISTORICAL) Left 07/09/2021 BREAST CYST ASPIRATION LEFT US ASP BREAST CYST LEFT (HISTORICAL) Left 08/21/2021 BREAST CYST ASPIRATION LEFT WISDOM TOOTH EXTRACTION Family History Problem Relation Name Age of Onset Other (ms) Paternal Grandmother Heart disease Maternal Grandfather Social History Socioeconomic History Marital status: Spouse name: Not on file Number of children: Not on file Years of education: Not on file Highest education level: Not on file Occupational History Not on file Tobacco Use Smoking status: Never Smokeless tobacco: Never Vaping Use Vaping Use: Never used Substance and Sexual Activity Alcohol use: Not Currently Drug use: Never Sexual activity: Yes Partners: Male Other Topics Concern Not on file Social History Narrative Not on file Social Determinants of Health Financial Resource Strain: Not on file Food Insecurity: Not on file Transportation Needs: Not on file Physical Activity: Not on file Stress: Not on file Social Connections: Not on file Intimate Partner Violence: Not on file Housing Stability: Not on file PHYSICAL EXAM: BP 111/73 Pulse 65 Wt 158 lb (71.7 kg) LMP 03/25/2022 BMI 26.29 kg/m Body mass index is 26.29 kg/m . Constitutional: Alert and oriented to person, place, and time. Normal appearance and dress, well developed, well nourished, cooperative, and appears to be in no acute distress. HENT: Head: Normocephalic Eyes: PERRLA, normal sclera, vision grossly intact, no eye discharge, normal eyelids Ear: No external ear drainage Nose: No nasal discharge Neck: Supple, normal range of motion, no thyromegaly, no tracheal deviation. Respiratory: Normal respiratory effort, no respiratory distress. Lungs clear to auscultation bilaterally both anterior and posterior. Cardiovascular: Heart with regular rate and rhythm. Abdomen: soft, non-tender, non-distended. No rigidity, no rebound tenderness, no guarding, no organomegaly. Lymph Nodes: no lymphadenopathy cervical, axillary, or inguinal. Neuro: no gross motor or sensory deficits, coordination normal, oriented to person place and time Musculoskeletal: Normal gait, normal muscular development, no edema, no clubbing, no cyanosis. Normal range of motion in all extremities. Extremities: No calf tenderness, DTR 2+, and No edema bilaterally Skin: Skin normal color, warm, dry, and intact, normal texture with no lesions, rashes, or eruptions. Psych: The patient was able to demonstrate good judgement and reason, without hallucinations, abnormal affect or abnormal behaviors during the examination. Patient is not suicidal. Thought content is normal. Normal mood and affect. Pelvic: Deferred Records from prior practice obtained and reviewed: no LAB RESULTS: [facility] Date Value Ref Range Status 11/13/2020 SEE BELOW NA Final [facility] ANTIBODY Date Value Ref Range Status 11/12/2020 NOT DETECTED Not Detected NA Final Comment: Patients with DETECTED Hepatitis C Ab results should have a new specimen submitted for supplemental testing with a Hepatitis C Quantitative RNA assay (viral load), if clinically indicated. ASSESSMENT: Problem List Items Addressed This Visit None Visit Diagnoses care, subsequent , unspecified trimester - Primary Relevant Orders Urine culture Hepatitis C antibody RPR Rubella antibody, IgG CBC auto differential HIV-1 and HIV-2 Antigen-Antibody Screen Hepatitis B surface antigen Antibody identification ABO/Rh C. trachomatis, N. gonorhoeae RNA DIAGNOSIS: Problem List Items Addressed This Visit None Visit Diagnoses care, subsequent , unspecified trimester - Primary Relevant Orders Urine culture Hepatitis C antibody RPR Rubella antibody, IgG CBC auto differential HIV-1 and HIV-2 Antigen-Antibody Screen Hepatitis B surface antigen Antibody identification ABO/Rh C. trachomatis, N. gonorhoeae RNA PLAN: New OB labs and cultures ordered today. Early GCT candidate: No Weight gain in guidelines reviewed according to her BMI. Discussed leaving urine at every visit. Prepregnancy Wt: 155 Follow up for 3-4 weeks RHYSRAPHAEL Manrique CNM documented in this encounter [facility] 05-20-2022 Instructions RAPHAEL Munson CNM - 05/20/2022 1:45 PM EST Genetic Screening Tests What is genetic testing? genetic testing gives [id number] information about whether their fetus has certain genetic disorders. What are genetic disorders? Genetic disorders are caused by changes in a person s genes or chromosomes. Aneuploidy is a condition in which there are missing or extra chromosomes. In a trisomy, there is an extra chromosome. In a monosomy, a chromosome is missing. Inherited disorders are caused by changes in genes called mutations. Inherited disorders include sickle cell disease, cystic fibrosis, Ramu-Sachs disease, and many others. In most cases, both parents must carry the same gene to have an affected child. What are genetic screening tests? These tests can tell you the chances that your fetus has an aneuploidy and a few additional disorders. This FAQ focuses on these tests. What are the different types of genetic screening tests? Screening tests can tell you your risk of having a baby with certain disorders. They include carrier screening and genetic screening tests: Carrier screening is done on parents (or those just thinking about becoming parents) using a blood sample or tissue sample swabbed from inside the cheek. These tests are used to find out whether a person carries a gene for certain inherited disorders. Carrier screening can be done before or during . genetic screening tests of the woman s blood and findings from ultrasound exams can screen the fetus for aneuploidy; defects of the brain and spine called neural tube defects; and some defects of the abdomen, heart, and facial features. This focuses on these tests. They include first-trimester screening and second-trimester screening What is first-trimester screening? First-trimester screening includes a test of the woman s blood and an ultrasound exam. Both tests usually are performed together and are done between 10 weeks and 13 weeks of : The blood test measures the level of two substances. The ultrasound exam, called a nuchal translucency screening, measures the thickness of a space at the back of the fetus s neck. An abnormal measurement means there is an increased risk that the fetus has Down syndrome or another type of aneuploidy. It also is linked to physical defects of the heart, abdominal wall, and skeleton. What is second-trimester screening? Second-trimester screening includes the following tests: The quad or quadruple blood test measures the levels of four different substances in your blood. The quad test screens for Down syndrome, trisomy 18, and neural tube defects. It is done between 15 weeks and 22 weeks of . There is an option to only measure the alpha fetoprotein (AFP) level with blood work which could screen for only neural tube defects. An ultrasound exam done between 18 weeks and 20 weeks of checks for major physical defects in the brain and spine, facial features, abdomen, heart, and limbs. What do the different results of screening tests mean? Results of blood screening tests for aneuploidy are reported as the level of risk that the disorder might be present: A positive screening test result for aneuploidy means that your fetus is at higher risk of having the disorder compared with the general population. It does not mean that your fetus definitely has the disorder. A negative result means that your fetus is at lower risk of having the disorder compared with the general population. It does not rule out the possibility that your fetus has the disorder. What should I consider when deciding whether to have genetic testing? It is your choice whether to have testing. Your personal beliefs and values are important factors in the decision about testing. It can be helpful to think about how you would use the results of screening tests in your care. Remember that a positive screening test tells you only that you are at higher risk of having a baby with Down syndrome or another aneuploidy. A diagnostic test should be done if you want to know a more certain result. Some parents want to know beforehand that their baby will be born with a genetic disorder. This knowledge gives parents time to learn about the disorder and plan for the medical care that the child may need. Some parents may decide to end the in certain situations. Other parents do not want to know this information before the child is born. In this case, you may decide not to have follow-up diagnostic testing if a screening test result is positive. Or you may decide not to have any testing at all. There is no right or wrong answer. Glossary Amniocentesis: A procedure in which a needle is used to withdraw and test a small amount of amniotic fluid and cells from the sac surrounding the fetus. Aneuploidy: Having an abnormal number of chromosomes. Carrier Screening: A test done on a person without signs or symptoms to find out whether he or she carries a gene for a genetic disorder. Chorionic Villus Sampling (CVS): A procedure in which a small sample of cells is taken from the placenta and tested. Cystic Fibrosis: An inherited disorder that causes problems in digestion and breathing. Down Syndrome: A genetic disorder that causes abnormal features of the face and body, medical problems such as heart defects, and intellectual disability. Most cases of Down syndrome are caused by an extra chromosome 21 (trisomy 21). Many children with Down syndrome live to adulthood. Monosomy: A condition in which there is a missing chromosome. Neural Tube Defects: defects that result from incomplete development of the brain, spinal cord, or their coverings. Nuchal Translucency Screening: A test in which the size of a collection of fluid at the back of the neck is measured by ultrasound to screen for certain defects, such as Down syndrome, trisomy 18, or heart defects. Screening Tests: Tests that look for possible signs of disease in people who do not have symptoms. Sickle Cell Disease: An inherited disorder in which red blood cells have a crescent shape, causing chronic anemia and episodes of pain. It occurs most often in Americans. Ramu-Sachs Disease: An inherited defect that causes intellectual disability, blindness, seizures, and , usually by age 5 years. It most commonly affects people of [place] and [place], [place], and [place] descent, but it can occur in anyone. Trisomy 13 (Patau Syndrome): A chromosomal disorder that causes serious problems with the brain and heart as well as extra fingers and toes, cleft palate and lip, and other defects. Most infants with trisomy 13 within the first year of life. Trisomy 18 (Peng Syndrome): A chromosomal disorder that causes severe intellectual disability and serious physical problems such as a small head, heart defects, and deafness. Most of those affected with trisomy 18 before or within the first month of life. Copyright October 2016 by the [employer] ====== Panorama Screen Information As an expectant parent, you may want to learn everything you can about the health of your baby. The Panorama Screen checks for the most common chromosomal disorders, such as Down syndrome, Trisomy 18 and Trisomy 13 that could affect your baby s health. This noninvasive test requires only a blood draw, so it s safe for both mom and baby. This test looks at DNA from the that crosses into the mother s blood to screen for chromosomal disorders that can cause serious defects, intellectual disability, or other health problems. Any baby can be born with a chromosome disorder, which is usually caused by a random error of cell division very early in . As women get older, the chance of having a baby with a chromosome disorder goes up. However, young women can have babies with these conditions. How does noninvasive testing work? DNA is the blueprint of life. It carries all of the genetic information needed for our bodies to function. A section of DNA with a specific job is called a gene. DNA is packaged into bundles called chromosomes. Healthy humans have 23 pairs of chromosomes. Any more or less can lead to problems. DNA from the placenta naturally crosses into the mother s bloodstream as a progresses. For the test, a small sample of your blood is drawn and the DNA is analyzed to check for certain chromosomal disorders, which can cause serious defects, intellectual disability, or other health problems in the baby. What conditions can this test detect? Down syndrome (trisomy 21) is caused by an extra copy of chromosome 21. It affects about 1 in 700 newborns,and is the most common genetic cause of mild to moderate intellectual disability. Children with trisomy 21 commonly have typical facial features, and a higher risk for certain health problems, including heart defects, other defects, and hearing and vision problems. Peng syndrome (trisomy 18) is caused by an extra copy of chromosome 18. It affects about 1 in 5,000 newborns. Children with trisomy 18 may have severe intellectual disability along with serious defects of the heart, brain, and other organs and usually survive less than one year. It is common for pregnancies with trisomy 18 to end in miscarriage or stillbirth. Patau syndrome (trisomy 13) is caused by an extra copy of chromosome 13. It affects about 1 in 16,000 newborns. Children with trisomy 13 may have severe intellectual disability and many serious defects (heart defects, extra fingers, cleft lip and palate, brain and abdominal wall defects) and usually survive less than one year. It is common for pregnancies with trisomy 13 to end in miscarriage or stillbirth. Chisholm syndrome (monosomy X)* is caused by a missing X chromosome in females. It affects about 1 in 2,000 female newborns. Girls with monosomy X commonly have heart defects, growth delays, infertility and may have minor learning difficulties. It is common for pregnancies with monosomy X to end in miscarriage or stillbirth. Klinefelter syndrome (XXY)* is caused by an extra X chromosome in males. It affects between 1 in 500 and 1 in 1,000 males. Children with Klinefelter syndrome commonly have delayed or absent puberty, learning difficulties, and tall stature. Most males with Klinefelter syndrome are infertile. XYY syndrome or XXX syndrome* are caused by an extra Y chromosome in males (XYY) or an extra X chromosome in females (XXX). It affects about 1 in 1,000 newborns. Children with XYY syndrome can have tall stature and an increased risk for learning difficulties or delayed motor skills. Fertility is not usually affected and some individuals have no symptoms at all. * May be included in the test. Cannot be evaluated in twin pregnancies. screening helps you prepare for life While most babies are born healthy, some will be born with a chromosomal disorder. Knowing about the health of the baby during allows you to make the most informed choices for your family. This information can help guide the management of the , and could also give you critical time to prepare--physically, financially, and emotionally--for the of a child with extra needs. ====== Carrier Screening What is carrier screening? Carrier screening is a type of genetic test that can tell you whether you carry a gene for certain genetic disorders. When it is done before or during , it allows you to find out the chances of having a child with a genetic disorder. What is a carrier? For some genetic disorders, it takes two genes for a person to have the disorder. A carrier is a person who has only one gene for a disorder. Carriers usually do not have symptoms or have only mild symptoms. Because they often do not know that they have a gene for a disorder, they can pass the gene on to their children. What are the chances of having a child with a genetic disorder? If both parents are carriers of a recessive gene for a disorder, there is a 25% (1-in-4) chance that their children will get the gene from each parent and will have the disorder. There is a 50% (1-in-2) chance that the children will be carriers of the disorder--just like the carrier parents. If only one parent is a carrier, there is a 50% (1-in-2) chance that the child will be a carrier of the disorder. How is carrier screening done? Carrier screening involves testing a sample of blood, saliva, or tissue from the inside of the cheek. Test results can be negative (you do not have the gene) or positive (you do have the gene). Typically, the partner who is most likely to be a carrier is tested first. If test results show that the first partner is not a carrier, then no additional testing is needed. If test results show that the first partner is a carrier, the other partner is tested. Once you have had a carrier screening test for a specific disorder, you do not need to be tested again for that disorder. When book canvasser screening be done? Some people decide to have carrier screening before having children. Carrier screening also can be done during . Getting tested before gives you a greater range of options and more time to make decisions. Do I have to have carrier screening? Carrier screening is a voluntary decision. You can choose to have carrier screening, or you can choose not to. There is no right or wrong choice. What carrier screening tests are available? We offer [facility] Carrier Screening. If you re an expectant parent, or thinking about starting a family, you probably want to do everything you can to prepare. This test provides a closer look at your genes, to see if you are at risk of passing a hereditary genetic disorder to your child. The [facility] Screening test checks for carrier status of fourteen of the most common genetic disorders that can cause serious health problems, intellectual disability, or a shorter life: Cystic Fibrosis, Spinal Muscular Atrophy, Duchenne Muscular Dystrophy, Fragile X, or 10 other conditions which are tested. These are Alpha Thalassemia, Beta Hemoglobinopathies, Yash Disease, Familial Dysautonomia, Galactosemia, Gaucher Disease, Medium-Chain Acyl-CoA Dehydrogenase Deficiency, Polycystic Kidney Disease - autosomal recessive, Lkoar-Usvyp-Ampxl Syndrome, Ramu-Sachs Disease Cystic fibrosis Cystic fibrosis (CF) is the most common fatal genetic disorder in many countries. It causes the body to produce thick mucus that can damage internal organs. It clogs the lungs, leading to life-threatening infections, and can cause digestive problems, poor growth, and infertility. Symptoms range from mild to severe, but do not affect intelligence. On average, CF patients live into their late thirties with access to good medical care. Spinal muscular atrophy Spinal muscular atrophy (SMA) is the most common inherited cause of infant . It affects a person s ability to control their muscles, including those involved in breathing, eating, crawling and walking. SMA has different levels of severity, none of which affect intelligence. However, the most common form of the disorder causes by age two. Fragile X syndrome Fragile X syndrome (FXS) is the most common inherited cause of intellectual disability. Symptoms cover a wide range, from mild to severe. About one-third of all people with FXS also have autism. Individuals with the disorder may also have behavioral issues such as hyperactivity, social anxiety, and aggression. Females usually have milder symptoms than males. Duchenne Muscular Dystrophy Duchenne muscular dystrophy (DMD) is a rare genetic disease that mostly affects males. It causes the muscles in the body to become weak and damaged over time, and is eventually fatal. The genetic mutation that causes DMD can be inherited, or new mutations can happen spontaneously. Who should have carrier screening? We all carry genetic changes that don t impact our own health, but can cause disease in our children. The only way to find out if you are a carrier is to have genetic carrier testing. Most people who learn they are carriers are healthy and have no known history of the condition in their family. Carrier testing helps you prepare for life Sometimes, a couple will learn during that they are at increased risk for a hereditary disorder. When this happens, diagnostic tests can provide answers about whether the baby is affected by the disorder. Knowing about the health of the baby can help guide the medical management of the , and could also give the family critical time to prepare--physically, financially, and emotionally--for the of a child with extra needs. Couples who learn about their carrier status before conception can take steps to build a healthy family. There are a number of potential choices to consider. Some couples become naturally, with or without diagnosis. Some pursue in vitro fertilization (IVF), using a diagnostic test to help select healthy embryos for implantation. Others use donor eggs or sperm from a person who is not a carrier. Some couples choose to adopt a child. Your healthcare provider or a genetic counselor can discuss these options in greater detail How accurate is carrier screening? No test is perfect. In a small number of cases, test results can be wrong. A negative test result when you have a gene for the disorder tested is called a false-negative result. A positive test result when you do not have a gene for a disorder is called a false-positive result. Also, because carrier screening looks for only a limited number of genes, it is possible that you are a carrier of a genetic disorder even if your test results are negative.. 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 Do NOT take Sudafed if you have high blood pressure Robitussin Mucinex Any throat or cough drops, or sprays Chlor-Trimeton Vicks Nasal Sprays [place] Nasal [place] (saline nose spray) Allergy Medication Zyrtec, Claritin, Erin, Benadryl Pain Reliever and Fever Scrap Collector Tylenol, Extra Strength Tylenol, Acetaminophen, Panadol, Tempra, Anacin Aspirin Free Antacids Maalox, Maalox Plus, Mylanta, Mylanta II, Riopan, Riopan Plus, Tums, Rolaids, Gaviscon, Pepcid, Zantac Stool Softeners Colace, Surfak, Metamucil, Citrucel, Fibercon Constipation Mineral Oil, Milk of Magnesia, Miralax Increase fluid and fiber! Nausea Unisom sleep tabs 25 mg (Doxylamine) take one each evening and Vitamin B-6 (25 mg) take 4 times per day Geraldine capsules, Geraldine tea, Gingerale Diarrhea Imodium A/D, Pedialyte, Rehydrate, Gatorade, BRAT diet -bananas, rice, applesauce and toast NOTE: If diarrhea persists more than two days, or if bloody, call the office! Gas Beano, Gas-X (simethicone) Sleep Aid Tylenol PM, Benadryl, Sleepy Time Tea, Melatonin How to contact us: During office hours please call the office: [phone] After hours answering service phone number: [phone] Please call if you experience any of the following: BLEEDING: Blood tinged mucous discharge is not uncommon, especially if you have had an exam in the office recently or sexual intercourse. However if you are bleeding like a period, you should call us Nausea and Vomiting in How common is nausea and vomiting of ? Nausea and vomiting of is a very common condition. Although nausea and vomiting of often is called morning sickness, it can occur at any time of the day. Nausea and vomiting of usually is not harmful to the developing baby, but it can have a serious effect on your life, including your ability to work or do your normal daily activities. When does nausea and vomiting of start? Nausea and vomiting of usually starts before 9 weeks of . For most women, it goes away by the second trimester (14 weeks of ). For some women, it lasts for several weeks or months. For a few women, it lasts throughout the entire . What is the difference between mild and severe nausea and vomiting of ? Some women feel nauseated for a short time each day and may vomit once or twice. This usually is defined as mild nausea and vomiting of . In more severe cases, nausea lasts several hours each day and vomiting occurs more frequently. Deciding to seek treatment depends on how much nausea and vomiting of affects your life and causes you concern, not whether your condition is mild or severe. What is hyperemesis gravidarum? Hyperemesis gravidarum is the most severe form of nausea and vomiting of . It occurs in up to 3% of pregnancies. This condition may be diagnosed when a woman has lost 5% of her prepregnancy weight and has other problems related to dehydration (loss of body fluids). Women with hyperemesis gravidarum need treatment to stop their vomiting and restore body fluids. Sometimes treatment in a hospital is needed. Am I at risk of severe nausea and vomiting of ? If you have any of the following factors, your risk of severe nausea and vomiting of may be increased: Being with more than one baby (multiple ) Past with nausea and vomiting (either mild or severe) Your mother or sister had severe nausea and vomiting of History of motion sickness or migraines Being with a female fetus Could nausea and vomiting during be caused by another medical condition? Some medical conditions can cause nausea and vomiting during . These include an ulcer, food-related illness, thyroid disease, or gallbladder disease. Your window caser may suspect that you have one of these conditions if you have signs or symptoms that do not usually occur with nausea and vomiting of : Nausea and vomiting that occurs for the first time after 9 weeks of Abdominal pain or tenderness Fever Headache Enlarged thyroid gland (swelling in the front of the neck) Can nausea and vomiting of affect my baby? Having nausea and vomiting of usually does not harm your health or your baby s health. It does not mean your baby is sick. It can become more of a problem if you cannot keep down any food or fluids and begin to lose weight. When this happens, it sometimes can affect the baby s weight at . You also can develop problems with your thyroid, liver, and fluid balance. When is the best time to treat nausea and vomiting of ? Because severe nausea and vomiting of is hard to treat and can cause health problems, many experts recommend early treatment so that it does not become severe. What can I do to feel better if I have nausea and vomiting of ? Diet and lifestyle changes may help you feel better. You may need to try more than one of these suggestions: Take a multivitamin. Try eating dry toast or crackers in the morning before you get out of bed to avoid moving around on an empty stomach. Drink fluids often. Avoid smells that bother you. Eat small, frequent meals instead of three large meals. Try bland foods. For example, the BREE diet (bananas, rice, applesauce, toast, and tea) is low in fat and easy to digest. Try geraldine evelyne made with real geraldine, geraldine tea made from fresh grated geraldine, geraldine capsules, and geraldine candies. If you do vomit a lot, it can cause some of your tooth enamel to wear away. This happens because your stomach contains a lot of acid. Rinsing your mouth with a teaspoon of baking soda dissolved in a cup of water may help neutralize the acid and protect your teeth. Is there medical treatment for nausea and vomiting of ? If diet and lifestyle changes do not help your symptoms, or if you have severe nausea and vomiting of , medical treatment may be needed. If other medical conditions are ruled out, certain medications can be given to treat nausea and vomiting of : Vitamin B6 and doxylamine--Vitamin B6 is a safe, barp-uyt-iwvapoz treatment that may be tried first. Doxylamine, a medication found in fxzj-you-habceuq sleep aids, may be added if vitamin B6 alone does not relieve symptoms. A prescription drug that combines vitamin B6 and doxylamine is available. Both drugs--taken alone or together--have been found to be safe to take during and have no harmful effects on the baby. Try Vitamin B6 25 mg, take it 4 times per day. Unisom sleep tablet 25 mg (active ingredient doxylamine), take one per day before bed. These won't help if just taken as needed. They should be taken daily be most effective. Antiemetic drugs--If vitamin B6 and doxylamine do not work, antiemetic drugs may be prescribed. These drugs prevent vomiting. Many antiemetic drugs have been shown to be safe to use during . Others have conflicting or limited safety information. You and your window caser or other members of your health care team can discuss all of these factors to determine the best treatment for your personal situation. What may happen if my nausea and vomiting is severe or I have hyperemesis gravidarum? You may need to stay in the hospital until your symptoms are under control. Lab tests may be done to check how your liver is working. If you are dehydrated from loss of fluids, you may receive fluids and vitamins through an intravenous line. If your vomiting cannot be controlled, you may need additional medication. If you continue to lose weight, sometimes tube feeding is recommended to ensure that you and your baby are getting enough nutrients. If you have further questions, contact your healthcare provider. Copyright March 2015 by the [employer] [facility] Before you bring your baby into the world, a lot of decisions have to be made. One of those decisions is whether or not to use a Certified Nurse Mandarin Speaking Nanny (CNM). Certified Nurse Midwives are registered nurses who have received a master s degree and advanced training in women s health and midwifery. They passed a national certification examination and are licensed in the [facility]. Certified Nurse Midwives write prescriptions and provide a variety of services, including: care Labor & delivery care Care after Disease prevention Family planning assistance Gynecological exams Health maintenance counseling Menopausal management Preconception care CNMs work to support and educate women through all phases of and delivery, and support both medicated and non-medicated birthing methods. They are especially skilled at using alternative birthing positions, birthing balls, water therapy, and massage. If you desire an epidural, this is still an option if you have a Certified Nurse Mandarin Speaking Nanny. You will work with your CNM to determine the best delivery options for you. However, if medical intervention is needed, your top closer will take the steps necessary to ensure a healthy outcome for you and your baby. Certified Nurse Midwives are always instrumentation controls engineer with a physician in case intervention is needed, for instance a Section, vacuum or forceps assisted . Our physician would perform those procedures and the CNM remains present with you for support. The laboring woman receives the best possible care with this team based approach. The CNM section rate at [facility] is only 8-9%, which means most mothers have a normal vaginal . [facility] offers the largest midwifery team in the region. This team is available any time, day or night for your delivery. The top closer that is instrumentation controls engineer the day you labor will be the one who attends the . Throughout your you have the option to meet the various midwives or simply go to the office that is most convenient for you. Not all midwives see clients in every office. Marylu Sidhu, KETTLE LOADER-CNM Camelia Quintana, KETTLE LOADER-CNM Shira Draper, KETTLE LOADER-CNM Layne Eng, KETTLE LOADER-CNM Tahira Peng, KETTLE LOADER-CNM Juana Meyer, KETTLE LOADER-CNM Lainey Bullock, KETTLE LOADER-CNM Teresa Gilliam, KETTLE LOADER-CNM * Corinna Chaves, KETTLE LOADER-CNM Radha Fonseca, KETTLE LOADER-CNM * Nikky Berger, KETTLE LOADER-CNM * *Office-based only midwives, do not attend births Currently, 25/10 midwifery coverage while in labor is only available at [facility]. [facility] midwives see patients in offices throughout our region including: [place], [facility], [place], [place], [place], [place], and [place]. To learn more about [facility] services, call . Food Safety in The following tips will help keep your food safe from harmful bacteria. For more information, visit foodsafety.gov. Keep things clean Wash your hands well before and after handling food. Always wash your hands after using the bathroom, changing diapers or handling pets. Wash fruits and vegetables under running water before eating. Wash utensils, dishes, cutting boards, counters and sinks with hot, soapy water after they come in contact with raw meat, poultry, seafood, eggs or unwashed fresh produce. Clean up spills in your refrigerator right away. Look at expiration dates on containers. Once a week throw away food that should no longer be eaten. Keep things Keep raw meat, poultry and seafood separate from other items in your grocery cart and refrigerator. Put uncooked meat, poultry and fish in sealed containers or plastic bags when storing them in the refrigerator. Use one cutting board for raw meats and a different one for fruits and vegetables. Place cooked meat, poultry and seafood on a clean plate. Do not reuse a plate that held the raw food. Keep things chilled Keep your refrigerator at 40 F or below and your freezer at zero F or below. Refrigerate food quickly. Cold temperatures keep most harmful bacteria from multiplying. Refrigerate perishable foods within two hours of purchase. (Refrigerate within one hour if the temperature is more than 90 F.) Refrigerate or freeze prepared foods and leftovers within two hours (within one hour if the temperature is more than 90 F). Use shallow containers for quicker cooling. Don't overpack the refrigerator; leave room for the cold air to circulate. Never thaw foods on the counter. Thaw foods in the refrigerator, in cold water, or in a microwave. Cook things well Use a clean, quick-read food thermometer to determine the temperature of foods. Cook foods until they have reached the proper temperature: roast beef, steaks, pork chops or roast to at least 145 F ground beef to at least 160 F ground turkey, chicken breasts or whole poultry to at least 165 F fish until it's opaque and flakes easily with a fork (145 F) eggs until the yolks and whites are firm egg dishes to 160 F Reheat leftovers to 165 F. Other tips to prevent food-related illness Listeria is a kind of bacteria that can contaminate foods and cause an infection called listeriosis. This is a serious illness that can cause premature labor or to a developing or baby. To reduce your risk of listeriosis: Make sure all milk and milk products are pasteurized. Do not eat unpasteurized soft cheeses such as feta, Brie, Camembert, blue-veined cheeses and Afghan-style cheeses. Limit deli foods like prepared salads or cheeses. Reheat hot dogs, lunch meats and deli meats until they are steaming hot. Do not eat refrigerated p t or meat spreads. (Canned or shelf-stable spreads are fine.) Only eat refrigerated smoked seafood as an ingredient in a cooked dish, such as a casserole. Reheat pre-cooked, take-home meals to 165 F. Choosing fish wisely Fish is a good source of protein, contains fatty acids, and is low in saturated fat. However, any fish (store-bought or fresh-caught) could contain contaminants such as mercury or PCBs that can harm a developing baby. It's best to vary the kind of fish you eat and limit the amount of fish you eat to one to two meals a week. The amount of fish in a meal depends on your body weight. If you weigh 150 pounds, you could safely eat one-half pound (8 ounces) of fish (precooked weight). To adjust the amount of fish, subtract or add one ounce of fish for every 20 pounds of body weight: If you weigh 130 pounds, eat 7 ounces of fish. If you weigh 150 pounds, eat 8 ounces of fish. If you weigh 170 pounds, eat 9 ounces of fish. Tips to help you choose fish Avoid martínez mackerel, swordfish, tilefish, marlin, orange roughy, and shark. These are large, salt-water fish most likely to have high levels of mercury. Avoid eating these locally caught fish: walleye larger than 20 inches, northern pike larger than 30 inches, and all muskellunge (muskies). Limit eating canned albacore tuna to one 6-ounce meal a month. Light tuna is a smaller fish and less likely to have high levels of mercury. Eat up to two meals a week of farm-raised or wild salmon from the [place] or [place], not from the [place]. Avoid raw fish, sushi and sashimi because it could contain harmful bacteria. Caffeine We don t know a lot about the effects of caffeine during on you and your baby. So it s best to limit the amount you get each day. If you re , limit caffeine to 200 milligrams each day. This is about the amount in 1 8-ounce cups of coffee or one 12-ounce cup of coffee. If you re , limit caffeine to no more than two cups of coffee a day. From June ====== Obstetrical Care Calendar This outline gives a general idea of what to expect at your future OB visits with [facility] 6 -13 Weeks - Dating and Viability Ultrasound/ Initial OB intake and physical with a Certified Nurse Mandarin Speaking Nanny or Women s Health Nurse Practitioner. Obtain complete medical, genetic and obstetrical history blood work ordered education Discuss testing options: 1st trimester screening (provides a more accurate assessment of a woman s risk for carrying a baby with Down Syndrome, Trisomy 13 and Trisomy 18. Carrier Screening for Cystic Fibrosis, Spinal Muscular Atrophy or Fragile X. AFP for Neural Tube Defect. Other tests if appropriate due to risk factors. Discuss Physician and Nurse Mandarin Speaking Nanny options Discuss [facility] as site for delivery 10 - 14 Weeks - Visit with OB Provider Review Results of Labs Discuss 1st Trimester Screening results if you choose this testing Discuss indications or need for MFM referral if High Risk At Each visit - Check Blood pressure, Check urine, check weight and heart tones as indicated 12 - 16 weeks - Visit with OB Provider Discuss 2nd trimester screening (QUAD screen or AFP) if desired Check blood pressure, urine, weight and heart tones Review OB provider options Schedule anatomy ultrasound to be done around 18 - 20 weeks 18 - 20 weeks - Anatomy US and Visit with Provider Check weight, blood pressure and urine Listen to heart beat and check uterine size Review results of anatomy ultrasound 22 - 24 weeks - Visit with OB Provider Check weight, blood pressure and urine Listen to heart beat and check uterine size Discuss 1 hour glucose test for gestational diabetes Order blood work for anemia and glucose test to be done around 28 weeks Order Antibody screen and rhogam IF Rh negative blood type 26 - 28 weeks - Visit with OB Provider Check weight, blood pressure and urine Listen to heart beat and check uterine size Discuss plans, choosing resistor inspector, taking childbirth classes Discuss TDaP vaccine to protect the baby against whooping cough, given at 27-36 weeks of 30 - 36 weeks - Visits with OB provider every 2 weeks Review results of glucose test and anemia test Check weight, blood pressure and urine Listen to heart beat and check uterine size High risk testing, if needed, will begin weekly Discuss circumcision, breast feeding, and control for after delivery Discuss plans, consider CNM or physician for delivery 36 - 40 weeks - Visits with Ob provider every week Check weight, blood pressure and urine Listen to heart beat and check uterine size Obtain vaginal/rectal culture for Group B Strep Cervical exam if requested by patient 41 weeks - Visit with OB provider Discuss option for post term testing with Biophysical Profile Ultrasound Discuss and schedule induction of labor prior to 42 weeks Panorama Screen Information As an expectant parent, you may want to learn everything you can about the health of your baby. The Panorama Screen checks for the most common chromosomal disorders, such as Down syndrome, Trisomy 18 and Trisomy 13 that could affect your baby s health. This noninvasive test requires only a blood draw, so it s safe for both mom and baby. This test looks at DNA from the that crosses into the mother s blood to screen for chromosomal disorders that can cause serious defects, intellectual disability, or other health problems. Any baby can be born with a chromosome disorder, which is usually caused by a random error of cell division very early in . As women get older, the chance of having a baby with a chromosome disorder goes up. However, young women can have babies with these conditions. How does noninvasive testing work? DNA is the blueprint of life. It carries all of the genetic information needed for our bodies to function. A section of DNA with a specific job is called a gene. DNA is packaged into bundles called chromosomes. Healthy humans have 23 pairs of chromosomes. Any more or less can lead to problems. DNA from the placenta naturally crosses into the mother s bloodstream as a progresses. For the test, a small sample of your blood is drawn and the DNA is analyzed to check for certain chromosomal disorders, which can cause serious defects, intellectual disability, or other health problems in the baby. What conditions can this test detect? Down syndrome (trisomy 21) is caused by an extra copy of chromosome 21. It affects about 1 in 700 newborns,and is the most common genetic cause of mild to moderate intellectual disability. Children with trisomy 21 commonly have typical facial features, and a higher risk for certain health problems, including heart defects, other defects, and hearing and vision problems. Peng syndrome (trisomy 18) is caused by an extra copy of chromosome 18. It affects about 1 in 5,000 newborns. Children with trisomy 18 may have severe intellectual disability along with serious defects of the heart, brain, and other organs and usually survive less than one year. It is common for pregnancies with trisomy 18 to end in miscarriage or stillbirth. Patau syndrome (trisomy 13) is caused by an extra copy of chromosome 13. It affects about 1 in 16,000 newborns. Children with trisomy 13 may have severe intellectual disability and many serious defects (heart defects, extra fingers, cleft lip and palate, brain and abdominal wall defects) and usually survive less than one year. It is common for pregnancies with trisomy 13 to end in miscarriage or stillbirth. Chisholm syndrome (monosomy X)* is caused by a missing X chromosome in females. It affects about 1 in 2,000 female newborns. Girls with monosomy X commonly have heart defects, growth delays, infertility and may have minor learning difficulties. It is common for pregnancies with monosomy X to end in miscarriage or stillbirth. Klinefelter syndrome (XXY)* is caused by an extra X chromosome in males. It affects between 1 in 500 and 1 in 1,000 males. Children with Klinefelter syndrome commonly have delayed or absent puberty, learning difficulties, and tall stature. Most males with Klinefelter syndrome are infertile. XYY syndrome or XXX syndrome* are caused by an extra Y chromosome in males (XYY) or an extra X chromosome in females (XXX). It affects about 1 in 1,000 newborns. Children with XYY syndrome can have tall stature and an increased risk for learning difficulties or delayed motor skills. Fertility is not usually affected and some individuals have no symptoms at all. * May be included in the test. Cannot be evaluated in twin pregnancies. screening helps you prepare for life While most babies are born healthy, some will be born with a chromosomal disorder. Knowing about the health of the baby during allows you to make the most informed choices for your family. This information can help guide the management of the , and could also give you critical time to prepare--physically, financially, and emotionally--for the of a child with extra needs. === Genetic Diagnostic Tests: Amnio and CVS What is genetic testing? genetic testing gives [id number] information about whether their fetus has certain genetic disorders. What are genetic disorders? Genetic disorders are caused by changes in a person s genes or chromosomes. Aneuploidy is a condition in which there are missing or extra chromosomes. In a trisomy, there is an extra chromosome. In a monosomy, a chromosome is missing. Inherited disorders are caused by changes in genes called mutations. What are genetic diagnostic tests? diagnostic tests: These tests can tell you, with as much certainty as possible, whether your fetus actually has an aneuploidy or specific inherited disorders for which you request testing. These tests are done on cells from the fetus or placenta obtained through amniocentesis or chorionic villus sampling (CVS). This FAQ focuses on these tests. What is amniocentesis? Amniocentesis is a diagnostic test. It usually is done between 15 weeks and 20 weeks of , but it also can be done up until you give . To perform the test, a very thin needle is used to withdraw a small amount of amniotic fluid. Ultrasound is used to guide the procedure. Depending on the way the cells are analyzed and the information that you want, results can take from 1 day to several weeks. There is a very small chance of loss with amniocentesis. Leakage of amniotic fluid and slight bleeding can occur after amniocentesis. In most cases, both stop on their own. What is chorionic villus sampling? In CVS, a sample of tissue is taken from the placenta. The main advantage of having CVS over amniocentesis is that CVS is performed earlier than amniocentesis, between 10 weeks and 13 weeks of . The chance of miscarriage with CVS is slightly higher than the chance of miscarriage with amniocentesis. How are the cells analyzed in diagnostic testing? A number of technologies are used in diagnostic testing. Your window caser or genetic counselor can assess what information is being sought and help select the tests that are best for your situation: Karyotype--Missing, extra, or damaged chromosomes can be detected by taking a picture of the chromosomes and arranging them in order from largest to smallest. Karyotyping results are ready in 1-2 weeks after the cells are sampled. Fluorescence in situ hybridization (FISH)--This technique can be used to detect common aneuploidies involving chromosomes 13, 18, and 21 and the X and Y chromosomes. Results are ready more quickly (usually within 1-2 days) than with traditional karyotyping. Positive test results are confirmed with a karyotype. Chromosome microarray analysis--This test can look for different kinds of chromosome problems, including aneuploidy, throughout the entire set of chromosomes. It can find some chromosome problems that karyotyping can miss. Results can be ready in about 7 days. What do the different results of diagnostic tests mean? Most of the time, the results of a diagnostic test are negative (normal). A negative result does not rule out the possibility that the fetus has a genetic disorder. It only tells you that the fetus does not have the particular disorder that was tested for. If a diagnostic test result is positive (it shows that the fetus has the disorder tested for), your window caser or genetic counselor can explain the results and provide guidance about your choices and options. A specialist in the disorder can help you understand the life expectancy of the disorder, whether treatment is available, and the care that your child will need. Support groups, counselors, and social workers also can listen to your concerns and answer questions. It may be possible to have additional testing, such as a specialized ultrasound exam, to find out more detail about the defect. What should I consider when deciding whether to have genetic testing? It is your choice whether to have testing. Your personal beliefs and values are important factors in the decision about testing. It can be helpful to think about what you would do if a diagnostic test result comes back positive. Some parents want to know beforehand if their child will be born with a genetic disorder. This gives parents time to learn about the disorder and plan for medical care that the child may need. If the disorder is very serious and the life expectancy is short, hospice care for the baby can be planned. Some parents may decide to end the in certain situations. Other parents do not want to know this information before the child is born. They may decide not to have any testing at all. There is no right or wrong answer. Keep in mind that certain tests can be done only at certain times during . Tests that are done earlier allow parents more time to make decisions if a test result is positive. If ending the is being considered, it is safer to do so within the first 13 weeks of . How do I choose between screening and diagnostic testing? Any woman can choose to have diagnostic testing instead of or in addition to screening test like Innatal. The main benefit of having diagnostic testing instead of screening is that it can detect all conditions caused by an extra chromosome and many other disorders in which chromosomes are missing or damaged. Diagnostic tests also are available for many inherited disorders. The main disadvantage is that diagnostic testing carries a very small risk of losing the . A genetic counselor or other health medicare insurance specialist with expertise in genetics can study your family health history, recommend specific tests, and interpret test results. Copyright April 2018 by the [employer] ====== Nausea and Vomiting in How common is nausea and vomiting of ? Nausea and vomiting of is a very common condition. Although nausea and vomiting of often is called morning sickness, it can occur at any time of the day. Nausea and vomiting of usually is not harmful to the developing baby, but it can have a serious effect on your life, including your ability to work or do your normal daily activities. When does nausea and vomiting of start? Nausea and vomiting of usually starts before 9 weeks of . For most women, it goes away by the second trimester (14 weeks of ). For some women, it lasts for several weeks or months. For a few women, it lasts throughout the entire . What is the difference between mild and severe nausea and vomiting of ? Some women feel nauseated for a short time each day and may vomit once or twice. This usually is defined as mild nausea and vomiting of . In more severe cases, nausea lasts several hours each day and vomiting occurs more frequently. Deciding to seek treatment depends on how much nausea and vomiting of affects your life and causes you concern, not whether your condition is mild or severe. What is hyperemesis gravidarum? Hyperemesis gravidarum is the most severe form of nausea and vomiting of . It occurs in up to 3% of pregnancies. This condition may be diagnosed when a woman has lost 5% of her prepregnancy weight and has other problems related to dehydration (loss of body fluids). Women with hyperemesis gravidarum need treatment to stop their vomiting and restore body fluids. Sometimes treatment in a hospital is needed. Am I at risk of severe nausea and vomiting of ? If you have any of the following factors, your risk of severe nausea and vomiting of may be increased: Being with more than one baby (multiple ) Past with nausea and vomiting (either mild or severe) Your mother or sister had severe nausea and vomiting of History of motion sickness or migraines Being with a female fetus Could nausea and vomiting during be caused by another medical condition? Some medical conditions can cause nausea and vomiting during . These include an ulcer, food-related illness, thyroid disease, or gallbladder disease. Your window caser may suspect that you have one of these conditions if you have signs or symptoms that do not usually occur with nausea and vomiting of : Nausea and vomiting that occurs for the first time after 9 weeks of Abdominal pain or tenderness Fever Headache Enlarged thyroid gland (swelling in the front of the neck) Can nausea and vomiting of affect my baby? Having nausea and vomiting of usually does not harm your health or your baby s health. It does not mean your baby is sick. It can become more of a problem if you cannot keep down any food or fluids and begin to lose weight. When this happens, it sometimes can affect the baby s weight at . You also can develop problems with your thyroid, liver, and fluid balance. When is the best time to treat nausea and vomiting of ? Because severe nausea and vomiting of is hard to treat and can cause health problems, many experts recommend early treatment so that it does not become severe. What can I do to feel better if I have nausea and vomiting of ? Diet and lifestyle changes may help you feel better. You may need to try more than one of these suggestions: Take a multivitamin. Try eating dry toast or crackers in the morning before you get out of bed to avoid moving around on an empty stomach. Drink fluids often. Avoid smells that bother you. Eat small, frequent meals instead of three large meals. Try bland foods. For example, the BREE diet (bananas, rice, applesauce, toast, and tea) is low in fat and easy to digest. Try geraldine evelyne made with real geraldine, geraldine tea made from fresh grated geraldine, geraldine capsules, and geraldine candies. If you do vomit a lot, it can cause some of your tooth enamel to wear away. This happens because your stomach contains a lot of acid. Rinsing your mouth with a teaspoon of baking soda dissolved in a cup of water may help neutralize the acid and protect your teeth. Is there medical treatment for nausea and vomiting of ? If diet and lifestyle changes do not help your symptoms, or if you have severe nausea and vomiting of , medical treatment may be needed. If other medical conditions are ruled out, certain medications can be given to treat nausea and vomiting of : Vitamin B6 and doxylamine--Vitamin B6 is a safe, [id number] treatment that may be tried first. Doxylamine, a medication found in fxrj-avh-yvjmlld sleep aids, may be added if vitamin B6 alone does not relieve symptoms. A prescription drug that combines vitamin B6 and doxylamine is available. Both drugs--taken alone or together--have been found to be safe to take during and have no harmful effects on the baby. Try Vitamin B6 25 mg, take it 4 times per day. Unisom sleep tablet 25 mg (active ingredient doxylamine), take one per day before bed. These won't help if just taken as needed. They should be taken daily be most effective. Antiemetic drugs--If vitamin B6 and doxylamine do not work, antiemetic drugs may be prescribed. These drugs prevent vomiting. Many antiemetic drugs have been shown to be safe to use during . Others have conflicting or limited safety information. You and your window caser or other members of your health care team can discuss all of these factors to determine the best treatment for your personal situation. What may happen if my nausea and vomiting is severe or I have hyperemesis gravidarum? You may need to stay in the hospital until your symptoms are under control. Lab tests may be done to check how your liver is working. If you are dehydrated from loss of fluids, you may receive fluids and vitamins through an intravenous line. If your vomiting cannot be controlled, you may need additional medication. If you continue to lose weight, sometimes tube feeding is recommended to ensure that you and your baby are getting enough nutrients. If you have further questions, contact your healthcare provider. Copyright March 2015 by the [employer] ===== First Trimester What to expect A healthy first trimester during is crucial to the normal development of the fetus. The [id number] may not be showing much on the outside, but inside her body all the major body organs and systems of the fetus are forming. It is during this first trimester that the fetus is most susceptible to damage from substances such as alcohol, drugs, certain medications, and illnesses such as rubella ([place] measles). During the first trimester, both the mother's body and the fetus are changing rapidly. development The most dramatic changes and development occur during the first trimester. During the first eight weeks, a fetus is called an embryo. The embryo develops rapidly and by the end of the first trimester it becomes a fetus that is fully formed, weighing approximately 1/2 to one ounce and measuring, on average, three to four inches in length. Development benchmarks and growth Just as each child grows and matures at different rates and at different times, so does that same child as it begins its life in the womb. The chart provided below provides benchmarks for most normal pregnancies. However, each fetus develops differently. By the end of four weeks All major systems and organs begin to form The embryo looks like a tadpole The neural tube (which becomes the brain and spinal cord), the digestive system, and the heart and circulatory system begin to form The beginnings of the eyes and ears are developing Tiny limb buds appear (which will develop into arms and legs) The heart is beating By the end of eight weeks All major body systems continue to develop and function, including the circulatory, nervous, digestive, and urinary systems The embryo is taking on a human shape, although the head is larger in proportion to the rest of the body The mouth is developing tooth buds (which will become baby teeth) The eyes, nose, mouth, and ears are becoming more distinct The arms and legs are clearly visible The fingers and toes are still webbed but can be clearly distinguished The main organs continue to develop and you can hear the baby's heartbeat using an instrument called a Doppler The bones begin to develop and the nose and jaws are rapidly developing The embryo is in constant motion but cannot be felt by the mother From embryo to fetus After eight weeks, the embryo is now referred to as a fetus (which means offspring). Although the fetus is only 1 to 1 1/2 inches long at this point, all major organs and systems have been formed. During weeks nine-12 The external genital organs are developed Fingernails and toenails appear Eyelids are formed movement increases The arms and legs are fully formed The voice box (larynx) begins to form in the trachea The fetus is most vulnerable during the first 12 weeks. During this period of time, all of the major organs and body systems are forming and can be damaged if the fetus is exposed to drugs, [place] measles, radiation, tobacco, and chemical and toxic substances. Even though the organs and body systems are fully formed by the end of 12 weeks, the fetus cannot survive independently. documented in this encounter [facility] 04-29-2022 History of Presen t illness Narrative Macy Flores 05/05/2022 Date Of : 1995 HPI: Macy Flores is a 26 y.o. female The patient was seen today. She is here regarding fu ulsd for dating and viability. Taking pnv. +spotting rh pos Review Of Systems: Constitutional: No fever, chills or malaise Gastrointestinal ROS: No Indigestion, Heartburn, Nausea, vomiting, Diarrhea, Constipation,or Bowel ChangesGenito-Urinary ROS: No Dysuria Psych ROS: No Depression, Homicidal thoughts,suicidal thoughts, or anxiety Physical Exam: Blood pressure 105/72, pulse 76, height 5' 5 (1.651 m), weight 162 lb (73.5 kg). General: Alert, NAD Respirations: Normal respiratory effort Abdomen: Soft non-tender; No guarding, rebound or rigidity. Extremities: No calf tenderness and No edema bilaterally Ulsd reviewed with patient Assessment: Diagnosis Plan 1. 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 Will get repeat hcg Orders Placed This Encounter Procedures hCG, quantitative, Standing Status: Future Number of Occurrences: 1 Standing Expiration Date: 04/29/2023 The encounter diagnosis was with inconclusive viability, single or unspecified fetus. and Follow-up (results) as well as counseling on preventative health maintenance follow-up. documented in this encounter [facility] 04-28-2022 Telephone encounter Note S: Patient spoke with [facility] nurse regarding vaginal spotting. B: Onset of symptoms/concern today A: Pt is 6-7 weeks . She has some dark brown spotting on her clothes and in toilet within the last hour. She had subchorionic hemorrhage with first in October of 2020 and same spotting symptoms. Denies fever, lightheadedness, abdominal pain, vaginal discharge, passing tissue or shoulder pain. With the first , pt was brought in to the office and an US was done which discovered the subchorionic hemorrhage. The hemorrhage was small and healed on its own. Pt scheduled for initial appointment and US on 05-19-22. Pt concerned that she could have another subchorionic hemorrhage. R: Paged provider instrumentation controls engineer via secure chat- Dr Britton. Dr Britton is in surgery currently. [facility] nurse checked with office. Was advised to sent pt to ED. There is no physician in the office today. Pt would need US again to determine if that is what is happening. Pt informed and states that she does not feel the it is emergent. She still has no pain. Please review TE and follow up with pt at [phone]. Instructed to call back with any further questions or concerns. Reason for Disposition Patient wants to be seen Answer Assessment - Initial Assessment Questions 1. ONSET: When did this bleeding start? In the last hour 2. DESCRIPTION: Describe the bleeding that you are having. How much bleeding is there? - SPOTTING: spotting, or pinkish / brownish mucous discharge; does not fill panty liner or pad - MILD: less than 1 pad / hour; less than patient's usual menstrual bleeding - MODERATE: 1-2 pads / hour; 1 menstrual cup every 6 hours; small-medium blood clots (e.g., pea, grape, small coin) - SEVERE: soaking 2 or more pads/hour for 2 or more hours; 1 menstrual cup every 2 hours; bleeding not contained by pads or continuous red blood from vagina; large blood clots (e.g., golf ball, large coin) Spotting dark brown 3. ABDOMINAL PAIN SEVERITY: If present, ask: How bad is it? (e.g., Scale 1-10; mild, moderate, or severe) - MILD (1-3): doesn't interfere with normal activities, abdomen soft and not tender to touch - MODERATE (4-7): interferes with normal activities or awakens from sleep, abdomen tender to touch - SEVERE (8-10): excruciating pain, doubled over, unable to do any normal activities no 4. : Do you know how many weeks or months you are? When was the first day of your last normal menstrual period? 6-7 weeks 5. HEMODYNAMIC STATUS: Are you weak or feeling lightheaded? If Yes, ask: Can you stand and walk normally? no 6. OTHER SYMPTOMS: What other symptoms are you having with the bleeding? (e.g., passed tissue, vaginal discharge, fever, menstrual-type cramps) no Protocols used: - Vaginal Bleeding Less Than 20 Weeks [id number] [facility] [place] 04-28-2022 Miscellaneous Notes S: Patient spoke with [facility] nurse regarding vaginal spotting. B: Onset of symptoms/concern today A: Pt is 6-7 weeks . She has some dark brown spotting on her clothes and in toilet within the last hour. She had subchorionic hemorrhage with first in October of 2020 and same spotting symptoms. Denies fever, lightheadedness, abdominal pain, vaginal discharge, passing tissue or shoulder pain. With the first , pt was brought in to the office and an US was done which discovered the subchorionic hemorrhage. The hemorrhage was small and healed on its own. Pt scheduled for initial appointment and US on 05-19-22. Pt concerned that she could have another subchorionic hemorrhage. R: Paged provider instrumentation controls engineer via secure chat- Dr Britton. Dr Britton is in surgery currently. [facility] nurse checked with office. Was advised to sent pt to ED. There is no physician in the office today. Pt would need US again to determine if that is what is happening. Pt informed and states that she does not feel the it is emergent. She still has no pain. Please review TE and follow up with pt at [phone]. Instructed to call back with any further questions or concerns. Reason for Disposition Patient wants to be seen Answer Assessment - Initial Assessment Questions 1. ONSET: When did this bleeding start? In the last hour 2. DESCRIPTION: Describe the bleeding that you are having. How much bleeding is there? - SPOTTING: spotting, or pinkish / brownish mucous discharge; does not fill panty liner or pad - MILD: less than 1 pad / hour; less than patient's usual menstrual bleeding - MODERATE: 1-2 pads / hour; 1 menstrual cup every 6 hours; small-medium blood clots (e.g., pea, grape, small coin) - SEVERE: soaking 2 or more pads/hour for 2 or more hours; 1 menstrual cup every 2 hours; bleeding not contained by pads or continuous red blood from vagina; large blood clots (e.g., golf ball, large coin) Spotting dark brown 3. ABDOMINAL PAIN SEVERITY: If present, ask: How bad is it? (e.g., Scale 1-10; mild, moderate, or severe) - MILD (1-3): doesn't interfere with normal activities, abdomen soft and not tender to touch - MODERATE (4-7): interferes with normal activities or awakens from sleep, abdomen tender to touch - SEVERE (8-10): excruciating pain, doubled over, unable to do any normal activities no 4. : Do you know how many weeks or months you are? When was the first day of your last normal menstrual period? 6-7 weeks 5. HEMODYNAMIC STATUS: Are you weak or feeling lightheaded? If Yes, ask: Can you stand and walk normally? no 6. OTHER SYMPTOMS: What other symptoms are you having with the bleeding? (e.g., passed tissue, vaginal discharge, fever, menstrual-type cramps) no Protocols used: - Vaginal Bleeding Less Than 20 Weeks [id number] documented in this encounter [facility] 04-15-2022 History of Presen t illness Narrative Macy Adrian 04/[birth year]22 26 y.o. 04/15/2022 HPI - She is here regarding no period and positive urine test at home. No LMP recorded. 03/25/22 EDC based on LMP: 12/25/22 Estimated weeks gestation: 3.5 weeks Vaginal bleeding: no Pelvic pain: no Currently taking a vitamin: yes Has nausea and/or vomiting: no, Had it bad with first . Plans to start b6 and unisom and wants rx for phenergan as well. Fatigue: yes Breast tenderness: no Smoking: no Patient was seen today via Telehealth by agreement and consent in light of the current COVID-19 pandemic. I used the following Telehealth technology: Audio and video capabilities. Patient location: Patient Location: Home. This patient encounter is appropriate and reasonable under the circumstances given the patient's particular presentation at this time. The patient has been advised of the potential risks and limitations of this mode of treatment (including but not limited to the absence of in-person examination) and has agreed to be treated in a remote fashion in spite of them. Any and all of the patient's/patient's family's questions on this issue have been answered and I have made no promises or guarantees to the patient. The patient has also been advised to contact this office for worsening conditions or problems, and seek emergency medical treatment and/or call 911 if the patient deems either necessary. The patient stated that they are currently in the [facility]. If the patient is a minor, permission has been obtained by the parent or guardian for the patient to receive medical care at this visit. Review of Systems Constitutional: Negative for activity change, appetite change and unexpected weight change. HENT: Negative for drooling and facial swelling. Gastrointestinal: Negative for abdominal distention, abdominal pain, constipation, diarrhea, nausea and vomiting. Genitourinary: Negative for menstrual problem, pelvic pain and vaginal bleeding. Skin: Negative for color change, pallor, rash and wound. Psychiatric/Behavioral: Negative for agitation, behavioral problems and confusion. History reviewed. No pertinent past medical history. Past Surgical History: Procedure Laterality Date US ASP BREAST CYST LEFT (HISTORICAL) Left 07/09/2021 US BREAST CYST ASPIRATION LEFT US ASP BREAST CYST LEFT (HISTORICAL) Left 08/21/2021 BREAST CYST ASPIRATION LEFT WISDOM TOOTH EXTRACTION MEDICATIONS: Current Outpatient Medications Medication Sig Dispense Refill promethazine (Phenergan) 25 MG tablet Take 1 tablet (25 mg) by mouth every 4 hours. 90 tablet 1 No current facility-administered medications for this visit. ALLERGIES: Allergies as of 04/15/2022 (No Known Allergies) PHYSICAL EXAM There were no vitals filed for this visit. There is no height or weight on file to calculate BMI. Physical Exam Constitutional: Appearance: She is well-developed. HENT: Head: Normocephalic. Pulmonary: Effort: Pulmonary effort is normal. Skin: General: Skin is warm and dry. Neurological: Mental Status: She is alert and oriented to person, place, and time. Psychiatric: Behavior: Behavior normal. Thought Content: Thought content normal. Judgment: Judgment normal. Assessment: Diagnosis Plan 1. with inconclusive viability, single or unspecified fetus promethazine (Phenergan) 25 MG tablet hCG, quantitative, hCG, quantitative, US OB transvaginal hCG, quantitative, hCG, quantitative, Plan: PNV recommended and prescribed if needed HCG ordered Dating and viability US ordered NOB process reviewed. Macy was seen today for amenorrhea. Diagnoses and all orders for this visit: with inconclusive viability, single or unspecified fetus (Primary) - promethazine (Phenergan) 25 MG tablet; Take 1 tablet (25 mg) by mouth every 4 hours. - hCG, quantitative, ; Future - hCG, quantitative, ; Future - US OB transvaginal; Future - hCG, quantitative, - hCG, quantitative, Follow up in about 4 weeks (around 05/13/2022) for Dating/Viability us and fu. Patient was seen with total face to face time of 15 minutes. More than 50% ofthis visit was counseling and education regarding The encounter diagnosis was with inconclusive viability, single or unspecified fetus. and Amenorrhea . documented in this encounter [facility] 06-11-2021 History of Presen t illness Narrative Pt is going home. STates she has a blood blister and is using gel pads. She would like to know if she needs to do anything else for it. Discussed deep latch and nipple soreness remedies. Discussed pump settings. Breast milk storage containers provided per her request. Reviewed feeding cues, I&O. Informed of support and how to contact as needed, verbalizes understanding. Images from the original note were not included. I reviewed and agree with the care provided by the resident during or immediately following the visit including the patient's medical history, the resident's findings in the physical exam, patient's diagnosis and treatment plan. DAY # 2 Macy Flores, 25 y.o. This patient was seen & examined today. Her was complicated by: Patient Active Problem List Diagnosis care - [facility] CARE FOR Abnormal genetic test during Pyelectasis of fetus on ultrasound GBS (group B Streptococcus carrier), +RV culture, currently Category II heart rate tracing during maternal care in third trimester Normal spontaneous vaginal delivery Today she is doing well without any chief complaint. Her lochia is light. She denies chest pain, shortness of breath, headache, lightheadedness and blurred vision. She is ambulating well. She is tolerating solids. Vital Signs: Vitals: 06/09/21 1516 06/09/21 1546 06/10/21 0742 06/10/212005 BP: 128/79 119/80 (!) 107/59 106/71 Pulse: 55 54 75 70 Resp: 16 16 16 16 Temp: 97.8 F (36.6 C) 97.9 F (36.6 C) 97.2 F (36.2 C) 97.3 F (36.3 C) TempSrc: Temporal Temporal Temporal Temporal SpO2: 98% 98% 98% 98% Weight: Height: Physical Exam: GENERAL APPEARANCE: alert, well appearing, in no apparent distress ABDOMEN : benign non-tender, without masses or organomegaly palpable UTERUS : normal size, well involuted, firm, non-tender Lab: Lab Results Component Value Date HGB 10.2 (L) 06/08/2021 Lab Results Component Value Date HCT 33.2 (L) 06/08/2021 O POS Antibody Screen: Antibody Screen Date Value Ref Range Status 06/08/2021 NEG NA Final Lab Results Component Value Date RUBELLAIGG 59.2 11/12/2020 LABOR DELIVERY ??? SCD's ONLY (labor through ambulation) SCD's PLUS Prophylactic Anticoagulation until discharge SCD's PLUS Prophylactic Anticoagulation for 6 weeks SCD's PLUS Therapeutic Anticoagulation for 6 weeks Vaginal Delivery [] BMI ? 40 kg/m2 Delivery All patients Vaginal Delivery [] BMI ? 40 kg/m2 AND [] Antepartum hospitalization ? 72 hours within the past month Delivery 1 Major Risk Factor: [] BMI ? 35 kg/m2 [] Low Risk Thrombophilia [] PPH+RBCs, IR, or operation [] Infection+Antibiotics [] Antepartum hospitalization ? 72 hours within the past month [] PMH: Sickle Cell, SLE, Cardiac Dz, Active IBD, Active Cancer, Nephrotic Syndrome OR 2 Minor Risk Factors: [] Multiple gestation [] Age > 40 [] PPH ? 1,000cc [] (+)FMH of VTE [] Smoker [] Preeclampsia [] BMI ? 40 kg/m2 AND [] Low Risk Thrombophilia OR ANY OF THE FOLLOWING: [] High Risk Thrombophilia without prior VTE [] Low Risk Thrombophilia with (+)FMH of VTE [] Any single prior VTE ANY OF THE FOLLOWING: [] Already on LMWH/UFH [] Multiple prior VTE [] High Risk Thrombophilia with prior VTE Low Risk Thrombophilia: FVL (heterozygous), Prothrombin (heterozygous), Protein C, Protein S High Risk Thrombophilia: FVL (homozygous), Prothrombin (homozygous), FVL+Prothrombin (heterozygous), Antithrombin III, APLS Assessment/Plan: Macy Flores is PPD # 2 s/p 1. Care - Doing well, VSS - Male , circumcision completed - Breast feeding - Contraception: None - Encourage ambulation - VTE Prophylaxis: Not Indicated 2. Disposition: Anticipate discharge today per private attending's discretion. Based on my clinical assessment, this patient is safe for self discharge (does not need transport by wheelchair) if she so chooses. Provider's Name: DO VIRGEN Michel DO 06/11/2021, 5:28 AM Images from the original note were not included. [facility] Progress Note DAY # 1 Macy Flores is a 25 y.o. female This patient was seen & examined today. Her was complicated by: Patient Active Problem List Diagnosis care - [facility] CARE FOR Abnormal genetic test during Pyelectasis of fetus on ultrasound GBS (group B Streptococcus carrier), +RV culture, currently Category II heart rate tracing during maternal care in third trimester Normal spontaneous vaginal delivery Subjective: Patient is feeling well. Pain is well controlled with oral medication if needed. She denies complaints or concerns today. She is voiding well and without discomfort She has not had a BM. She is passing gas. She reports vaginal bleeding as normal. Ambulating and tolerating a regular diet. Baby is breast feeding well. Vital Signs: Vitals: 06/09/21 1238 06/09/21 1516 06/09/21 1546 06/10/21 0742 BP: 111/72 128/79 119/80 (!) 107/59 Pulse: 56 55 54 75 Resp: 16 16 16 Temp: 97.8 F (36.6 C) 97.9 F (36.6 C) 97.2 F (36.2 C) TempSrc: Temporal Temporal Temporal SpO2: 98% 98% 98% Weight: Height: Pertinent Data: Information for the patient's : Artie Flores [[id number]] male Weight: 8 lb (3.629 kg) Apgars: Information for the patient's : Artie Flores [[id number]] One Minute : 8 Five Minute : 9 course normal. Blood Type/Rh: O POS Antibody Screen: Antibody Screen Date Value Ref Range Status 06/08/2021 NEG NA Final Rubella: Lab Results Component Value Date RUBELLAIGG 59.2 11/12/2020 Lab Results Component Value Date HGB 10.2 (L) 06/08/2021 Lab Results Component Value Date HCT 33.2 (L) 06/08/2021 Physical Exam: General: awake, alert, cooperative, appears stated age, and no apparent distress Affect: appropriate mood Lungs: No increased work of breathing Heart: regular rate and rhythm Abdomen: abdomen soft, non-distended, non-tender Fundus: non-tender, normal size, firm, below umbilicus Vaginal bleeding: small amount of lochia, no clots Extremities: no calf tenderness, trace lower extremity edema, neg Sandra's sign Assessment and Plan: Macy Flores is a stable on PPD # 1 s/p vaginal Doing well, vital signs stable male rooming in with mom, desires circumcision , consult as needed Rh positive - Rhogam not indicated Rubella immune vaccine not indicated Encouraged ambulation Contraception: TBD If patient is being discharged today, warning signs reviewed Continue current care RAPHAEL Elizabeth CNM 06/10/2021, 4:00 PM Nutrition rescreen completed. Patient assigned a level 1. Images from the original note were not included. POST DAY # 1 Macy Flores, 25 y.o. This patient was seen & examined today. Her was complicated by: Patient Active Problem List Diagnosis care - [facility] CARE FOR Abnormal genetic test during Pyelectasis of fetus on ultrasound GBS (group B Streptococcus carrier), +RV culture, currently Category II heart rate tracing during maternal care in third trimester Normal spontaneous vaginal delivery Today she is doing well without any chief complaint. Pain is improved compared to yesterday. One time oxycodone was enough for her acute pain from pair. Is controlled with tylenol/motrin. Her lochia is light. She denies chest pain, shortness of breath, headache, lightheadedness and blurred vision. She is ambulating well. She is tolerating solids. Vital Signs: Vitals: 06/09/21 1208 06/09/21 1238 06/09/21 1516 06/09/21 1546 BP: 100/79 111/72 128/79 119/80 Pulse: 64 56 55 54 Resp: 16 16 Temp: 97.8 F (36.6 C) 97.9 F (36.6 C) TempSrc: Temporal Temporal SpO2: 98% 98% Weight: Height: Physical Exam: GENERAL APPEARANCE: alert, well appearing, in no apparent distress ABDOMEN : benign non-tender, without masses or organomegaly palpable UTERUS : normal size, well involuted, firm, non-tender Lab: Lab Results Component Value Date HGB 10.2 (L) 06/08/2021 Lab Results Component Value Date HCT 33.2 (L) 06/08/2021 O POS Antibody Screen: Antibody Screen Date Value Ref Range Status 06/08/2021 NEG NA Final Lab Results Component Value Date RUBELLAIGG 59.2 11/12/2020 LABOR DELIVERY ??? SCD's ONLY (labor through ambulation) SCD's PLUS Prophylactic Anticoagulation until discharge SCD's PLUS Prophylactic Anticoagulation for 6 weeks SCD's PLUS Therapeutic Anticoagulation for 6 weeks Vaginal Delivery [] BMI ? 40 kg/m2 Delivery All patients Vaginal Delivery [] BMI ? 40 kg/m2 AND [] Antepartum hospitalization ? 72 hours within the past month Delivery 1 Major Risk Factor: [] BMI ? 35 kg/m2 [] Low Risk Thrombophilia [] PPH+RBCs, IR, or operation [] Infection+Antibiotics [] Antepartum hospitalization ? 72 hours within the past month [] PMH: Sickle Cell, SLE, Cardiac Dz, Active IBD, Active Cancer, Nephrotic Syndrome OR 2 Minor Risk Factors: [] Multiple gestation [] Age > 40 [] PPH ? 1,000cc [] (+)FMH of VTE [] Smoker [] Preeclampsia [] BMI ? 40 kg/m2 AND [] Low Risk Thrombophilia OR ANY OF THE FOLLOWING: [] High Risk Thrombophilia without prior VTE [] Low Risk Thrombophilia with (+)FMH of VTE [] Any single prior VTE ANY OF THE FOLLOWING: [] Already on LMWH/UFH [] Multiple prior VTE [] High Risk Thrombophilia with prior VTE Low Risk Thrombophilia: FVL (heterozygous), Prothrombin (heterozygous), Protein C, Protein S High Risk Thrombophilia: FVL (homozygous), Prothrombin (homozygous), FVL+Prothrombin (heterozygous), Antithrombin III, APLS Assessment/Plan: Macy Flores is PPD # 1 s/p 1. Care - Doing well, VSS - Male infant, desires circumcision - Breast feeding - Contraception: Per Private Attending - Encourage ambulation - VTE Prophylaxis: Not Indicated 2. Disposition: Continue current care. Based on my clinical assessment, this patient is safe for self discharge (does not need transport by wheelchair) if she so chooses. Provider's Name: DO VIRGEN Michel DO 06/10/2021, 5:32 AM RN paged about 7/10 pain on post in the vaginal area unrelieved with tylenol and motrin. Patient is PPD 0 from complicated by deep 2nd degree tear and sulcal tear. Into room to assess patient. She states pain is more so located on her left side. She is feeling more as the epidural is wearing off. Vitals: 06/09/21 1546 BP: 119/80 Pulse: 54 Resp: 16 Temp: 97.9 F (36.6 C) SpO2: 98% PE: : Symmetrical labia swelling likely 2/2 laboring. No abnormal discoloration or hematoma formation externally appreciated. Internal exam revealed no masses or hematoma formation. Sutures well applied and intact. Umbilicus firm and at the U. A/P: Discussed with Shira Draper CNM. One time dose of oxycodone 5mg at this time. Will continue to monitor for hematoma formation. 06/09/2021 at 11:19 AM [facility] LABOR PROGRESS NOTE Subjective: Patient is pushing well with contractions. Partner is supportive and present at the bedside. Contraction pain is none, epidural infusing. Epidural Yes, effective Objective: Vital Signs: Vital signs reviewed in OB TV--last BP 127/82, Temp 98.0F. FHR: Baseline: 145 Variability: moderate Accels: present Decels: Variables with pushing Contraction Frequency: Every 2 to 3 minutes Cervical Exam: 10 cm, 100%, +2-3 station Membranes: are Ruptured clear fluid Pitocin: yes -currently infusing at 10 milliunits per minute Assessment: Macy Flores is a 25 y.o. 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 Partner is supportive and present at the bedside. Contraction pain is none. Epidural Yes, infusing and effective Objective: Vital Signs: Vital signs reviewed in OB TV--last BP 118/89, Temp 98.0F. FHR: Baseline: 135 Variability: moderate Accels: present Decels: Late decels resolved with position change and IVF bolus, one deep variable at 0907 Contraction Frequency: Every 2 to 4 minutes; last MVU 200 Cervical Exam: 10 cm, 100%, 0 station, caput +1-2 Membranes: are Ruptured clear fluid at 0120 Pitocin: yes - currently infusing at 10 milliunits per minute Assessment: Macy Flores is a 25 y.o. 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, declined further testing Resolved pylectatsis Active Phase Labor Heart Rate Cat II- overall reassuring Plan: Activity as tolerated--bedrest Clear liquids PO Encouraged to rest Frequent position changes Continuous monitoring Continue pitocin and titrate as needed to achieve adequate contraction pattern Continue epidural infusion as managed by anesthesia dept Will labor down 30 min-1 hour if FHR remains reassuring/Cat I; late decelerations resolved with position change to queens chair from left tile Reviewed with Dr Ellsworth who agreed with plan of care [facility] LABOR PROGRESS NOTE Subjective: Patient is doing well with contractions. Family is supportive and present at the bedside. Contraction pain is mild. Epidural Yes encouraged to use JAVA ARCHITECT PRN. Objective: VS: Vitals: 06/08/21 0015 06/08/21 0030 06/08/21 0115 BP: (!) 128/95 Pulse: 69 Temp: 98.2 F (36.8 C) TempSrc: Oral Weight: 174 lb (78.9 kg) Height: 5' 5 (1.651 m) FHR: Baseline: 130 Variability: moderate Accels: present Decels: Variable: mild, while on back for cervical exam resolved with position change Contraction Frequency: Every 2 to 4 minutes Cervical Exam: 6-7/80/-2 Pitocin: yes - @ 8 mu/ min Assessment: 25 y.o. 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 Continue to titrate pitocin per unit protocol until adequate contraction pattern achieved Recent temp 100.4. no or maternal tachycardia noted. Fluid remains odorless and colorless. Continues to have left sided uterine pain through epidural window. Will retake temp in 30 minutes. If remains elevated will consider dx of chorio for maternal temp and uterine tenderness. - ADDENDUM: REPEAT TEMP 98.3 Clear Liquids Frequent position changes - repositioned to far right lateral in supergirl Continuous internal monitoring If GBS positive, IV antibiotics for GBS prophylaxis Peds for delivery if meconium stained fluid present Observe, monitor, support Reeval within 2 hours or PRN Anticipate continued cervical change and onset of transitional labor and SVB Lainey Bullock CNM [facility] LABOR PROGRESS NOTE Subjective: Patient is doing well with contractions. Family is supportive and present at the bedside. Contraction pain is mild. Epidural Yes, anesthesia at the bedside to assess Objective: VS: Vitals: 06/08/21 0015 06/08/21 0030 06/08/21 011 BP: (!) 128/95 Pulse: 69 Temp: 98.2 F (36.8 C) TempSrc: Oral Weight: 174 lb (78.9 kg) Height: 5' 5 (1.651 m) FHR: Baseline: 130 Variability: moderate Accels: present Decels: Absent Contraction Frequency: Every 4 to 5 minutes Cervical Exam: deferred Pitocin: yes - @ 2 mu/ min Assessment: 25 y.o. 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 - further testing declined Resolved pyelectasis Latent labor moving toward active Labor Heart Rate Category I - overall reassuring Group B Strep: positive Meconium stained fluid: No, remains clear on the pad Plan: Continue to titrate pitocin per unit protocol until adequate contraction pattern achieved Clear Liquids Frequent position changes Continuous internal monitoring If GBS positive, IV antibiotics for GBS prophylaxis Peds for delivery if meconium stained fluid present Observe, monitor, support Reeval within 2 hours or PRN Anticipate continued cervical change and onset of active labor and SVB Lainey Bullock CNM [facility] PROGRESS NOTE Subjective: Patient is doing well with contractions. Family is supportive and present at the bedside. Contraction pain is none. Epidural Yes Objective: VS: Vitals: 06/08/21 0015 06/08/21 0030 06/08/21114 BP: (!) 128/95 Pulse: 69 Temp: 98.2 F (36.8 C) TempSrc: Oral Weight: 174 lb (78.9 kg) Height: 5' 5 (1.651 m) FHR: Baseline: 120 Variability: moderate Accels: present Decels: Variable: prolonged. Resolved with hands and knees, terb, o2 and pitocin off. Contraction Frequency: Every 4 minutes Cervical Exam: 5/80/-2 with BBOW - AROM with exam for moderate amount of clear fluid Pitocin: No - off Assessment: 25 y.o. 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 On assessment, no cord palpated. FSE placed without difficulty. Patient repositioned to right and left lateral with no resolution in pattern. patient was then repositioned to hands and knees. Pitocin was turned off, o2 placed via face mask at 10 liters, and IV bolus initiated. terb given x 1. Pattern did resolve with conservative measures. Clear Liquids Frequent position changes Continuous internal monitoring If GBS positive, IV antibiotics for GBS prophylaxis Peds for delivery if meconium stained fluid present Observe, monitor, support Reeval within [address] Grier notified of recent interventions. Lainey Bullock CNM [facility] PROGRESS NOTE Subjective: Patient is doing well with contractions. Family is supportive and present at the bedside. Contraction pain is mild. Epidural Yes, is s/p epidural start at this time. Objective: VS: Vitals: 06/08/21 0015 06/08/21 0030 06/08/21 0115 BP: (!) 128/95 Pulse: 69 Temp: 98.2 F (36.8 C) TempSrc: Oral Weight: 174 lb (78.9 kg) Height: 5' 5 (1.651 m) FHR: Baseline: 130 Variability: Moderate, with periods of pseudo sinusoidal pattern noted. Spontaneous accelerations present. Accels: present Decels: Early Contraction Frequency: Every 2 to 2.5 minutes Cervical Exam: deferred Pitocin: yes - @ 8 mu/ min Assessment: 25 y.o. 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 - further testing declined Resolved pyelectasis latent Labor Heart Rate Category I - overall reassuring Group B Strep: positive Meconium stained fluid: no Plan: Continue to titrate pitocin per unit protocol until adequate contraction pattern achieved Consider AROM with next exam if minimal cervical change noted Clear Liquids Frequent position changes Patient encouraged to rest at this time Continuous external monitoring If GBS positive, IV antibiotics for GBS prophylaxis Peds for delivery if meconium stained fluid present Observe, monitor, support Reeval within 2 hours or PRN Anticipate continued cervical change and onset of active labor Plan NICU in room for delivery d/t abnormal NIPT results. Lainey Bullock CNM [facility] PROGRESS NOTE Subjective: Patient is doing well with contractions. Family is supportive and present at the bedside. Contraction pain is mild. Epidural No Objective: VS: Vitals: 06/08/21 0015 06/08/21 0030 06/08/21 0115 BP: (!) 128/95 Pulse: 69 Temp: 98.2 F (36.8 C) TempSrc: Oral Weight: 174 lb (78.9 kg) Height: 5' 5 (1.651 m) FHR: Baseline: 130 Variability: moderate Accels: present Decels: Late, intermittent, resolved with position change Contraction Frequency: Every 2 to 3 minutes Cervical Exam: 560/-3 with BBOW Pitocin: yes - @ 6 mu/ min Assessment: 25 y.o. 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 Family is supportive and present at the bedside. Contraction pain is mild. Epidural No Objective: VS: Vitals: 06/08/21 0015 06/08/21 0030 06/08/21 0115 BP: (!) 128/95 Pulse: 69 Temp: 98.2 F (36.8 C) TempSrc: Oral Weight: 174 lb (78.9 kg) Height: 5' 5 (1.651 m) FHR: Baseline: 130 Variability: moderate Accels: present Decels: Absent Contraction Frequency: Every 23 to 3 minutes Cervical Exam: deferred FB remains in situ Pitocin: yes - @ 2 mu/ min Assessment: 25 y.o. 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 - further testing declined Resolved pyelectasis Cervical ripening portion of Labor Heart Rate Category I - overall reassuring Group B Strep: positive Meconium stained fluid: no Plan: Low dose pit while FB in place Clear Liquids Frequent position changes - repositioned to far right lateral with peanut ball Patient encouraged to rest Continuous external monitoring If GBS positive, IV antibiotics for GBS prophylaxis Peds for delivery if meconium stained fluid present Observe, monitor, support Reeval within 4 hours or PRN Lainey Bullock CNM [facility] PROGRESS NOTE Subjective: Patient is doing well with contractions. Family is supportive and present at the bedside. Contraction pain is mild. Epidural No Objective: VS: Vitals: 06/08/21 0015 06/08/21 0030 06/08/21 0115 BP: (!) 128/95 Pulse: 69 Temp: 98.2 F (36.8 C) TempSrc: Oral Weight: 174 lb (78.9 kg) Height: 5' 5 (1.651 m) FHR: Baseline: 125 Variability: moderate Accels: present Decels: Absent Contraction Frequency: Every 2 to 3 minutes Cervical Exam: fingertip/50/-3/soft Pitocin: yes - starting now per protocol Assessment: 25 y.o. 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 approx 20 cc of blood noted on placement. No further bleeding after that. Clamped. Will start low dose pitocin Clear Liquids Frequent position changes - repositioned to far right lateral with peanut ball Continuous external monitoring If GBS positive, IV antibiotics for GBS prophylaxis Peds for delivery if meconium stained fluid present Observe, monitor, support Reeval within 4 hours or PRN Lainey Bullock CNM Patient to take a break to eat and rest. Will resume IOL afterward. Cat I tracing at this time. CNM LABOR PROGRESS NOTE Subjective: Patient is doing well with contractions. Family is supportive and present at the bedside. Contraction pain is mild. Epidural No Objective: VS: Vitals: 06/08/21 0015 06/08/21 0030 06/08/21 0115 BP: (!) 128/95 Pulse: 69 Temp: 98.2 F (36.8 C) TempSrc: Oral Weight: 174 lb (78.9 kg) Height: 5' 5 (1.651 m) FHR: Baseline: 135 Variability: moderate Accels: present Decels: Absent Contraction Frequency: Every 2 to 4 minutes Cervical Exam: closed/ 60/-3 Pitocin: no Assessment: 25 y.o. 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 - further testing declined Resolved pyelectasis Cervical ripening portion of Labor Heart Rate Category I - overall reassuring Group B Strep: Positive - adequately treated Meconium stained fluid: no Plan: Fluid bolus initiated to space out contractions Will place third cytotec when able, patient prefers to defer FB at this time Clear Liquids Frequent position changes Continuous external monitoring If GBS positive, IV antibiotics for GBS prophylaxis Peds for delivery if meconium stained fluid present Observe, monitor, support Reeval within 2 hours or PRN Lainey Bullock CNM 06/08/2021 at 5:22 AM [facility] PROGRESS NOTE Subjective: Patient feels tightenings but no uncomfortable contractions. Family is supportive and present at the bedside. Contraction pain is none. Epidural No Objective: Vital Signs: Vital signs WNL and reviewed in OB TV. FHR: Baseline: 120 Variability: moderate Accels: present Decels: absent Contraction Frequency: Every 2 to 7 minutes Cervical Exam: 0-1 cm, 60%, -3 station Membranes: are Intact Pitocin: no Assessment: Macy Flores is a 25 y.o. 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 Normal MFM anatomy u/s, pt declined echo / amnio / serial growth u/s, and surveillance. tx plan = 3cc cord blood in green top and 3cc in purple top. Ped to eval baby prior to d/c. GBS pos, O pos, Rubella Immune Plan: Cytotec #2 Activity as tolerated Clear liquids Encouraged to rest Continuous monitoring Continue pitocin and titrate as needed to achieve adequate contraction pattern Penicillin for GBS prophylaxis 06/08/2021 at 1:01 AM [facility] PROGRESS NOTE Subjective: Patient is not feeling contractions. Family is supportive and present at the bedside. Contraction pain is none. Epidural desired later in labor. Objective: Vital Signs: Vital signs WNL and reviewed in OB TV. There were no vitals filed for this visit. FHR: Baseline: 135 Variability: moderate Accels: present Decels: None at present, but two earlier Contraction Frequency: Some irritability per toco Cervical Exam: 0-1 cm on admission Membranes: are Intact Pitocin: no Assessment: Macy Flores is a 25 y.o. at 39w2d Induction of Labor for Cat II Heart Rate Category 1 at the moment- overall reassuring Patient Active Problem List Diagnosis care - CNM CARE FOR Abnormal genetic test during Pyelectasis of fetus on ultrasound GBS (group B Streptococcus carrier), +RV culture, currently Category II heart rate tracing during maternal care in third trimester Group B Strep Screen PCR Date Value Ref Range Status 05/15/2021 (A) Final POSITIVE Expected Result: Negative CDC guidelines for prevention of Group B Strep disease recommends collection of both vaginal and rectal specimens for optimal recovery of GBS. Methodology - Real Time PCR ([email or web address]) 05/15/2021 Group B streptococcus (A) Final 05/15/2021 Final Isolated: Susceptibility testing not routinely performed. Group B streptococcus is universally susceptible to beta-lactam antibiotics and vancomycin. If patient is beta-lactam allergic, please call [facility] lab ([phone]) within 2 days to request susceptibility testing. If isolated from urine, Group B strep may indicate colonization or infection. ABO Grouping Date Value Ref Range Status 11/12/2020 O NA Final Rh Type Date Value Ref Range Status 11/12/2020 POS NA Final Rubella IgG Scr Date Value Ref Range Status 11/12/2020 59.2 Final Comment: Interpretation Table: <10.0 Antibody NOT Detected >=10.0 Antibody Detected Panorama: Atypical finding for chromosome 13. Normal anatomy u/s. Pt declined echo, amnio, serial growth u/s, surveillance. treatment plan is to obtain 3cc in green top and 3cc in purple top. Ped to evaluate baby prior to discharge. Pyelectasis resolved. Plan: Cytotec per protocol Activity as tolerated Clear liquids Encouraged to rest Frequent position changes Continuous monitoring Penicillin for GBS prophylaxis Recheck in 2-4 hours or as needed Images from the original note were not included. Department of Obstetrics and Gynecology Labor and Delivery Triage Note CHIEF COMPLAINT: Contractions HISTORY OF PRESENT ILLNESS: The patient is a 25 y.o. 39w2d. OB History 1 Para 0 Term 0 0 AB 0 Living 0 SAB 0 IAB 0 Ectopic 0 Molar 0 Multiple 0 Live Births 0 Estimated Due Date: Estimated Date of Delivery: 06/13/21 REVIEW OF SYSTEMS: Pertinent items are noted in HPI. APPEARANCE: Pain: no PHYSICAL EXAM: Vital Signs: Elevated BPs/Respirations normal effort There were no vitals filed for this visit. Speculum Exam: no pooling of fluid seen, Nitrizine test is negative, Ferning test is negative heart rate: Category II Cervix: 0-1/50/-3 Membranes: Intact BSUS: vertex presentation IMPRESSION: Cat II FHT DISCUSSED WITH PNC PROVIDER: KAR[facility] Meyer DISPOSITION: Admit to L&D documented in this encounter [facility] Work Phone: 06-11-2021 Hospital Discharg Corinna Banks APRN - CNM - 06/11/2021 Images from the original note were not included. After Your Delivery (the Period): Your Care Instructions Thank you for allowing us to care of you at [facility]. This time can be one of many emotional ups and downs and many changes in your life. In these first weeks try to take good care of yourself because you will likely feel very tired. It may take 4 to 6 weeks to feel like yourself again, and possibly longer if you had a . FOLLOW-UP: Your follow-up care is a ruth part of your treatment and safety. Follow-up with your OB providerin 4 weeks or as specified by your OB provider. If you had high blood pressure, visit your OB provider within 3-5 days after being home. Most women's blood pressure will return to pre- levels after delivery. However, some patients continue to have problems with their blood pressure, and some even get worse. Very high blood pressure can lead to seizures or stroke which can be life threatening. If ordered by your doctor, take your blood pressure at home and call your OB provider if you have a high reading. Your doctor can write you a prescription for a blood pressure monitor if you do not have one Be sure to make and go to all appointments, and call your OB provider if you are having problems. It's also a good idea to know your test results and keep a list of the medicines you take. BLEEDING Vaginal bleeding will decrease in amount over the next few weeks. Bleeding may sweet pickled fruit maker and then decrease again around 7-10 days . Use pads instead of tampons for the bloody flow that may last as long as 2 weeks. You will notice that as your activity increases, your flow may increase. Call your provider if you are saturating one maxi pad in an hour & passing large clots for 3 hours or more. ACTIVITY NO SEXUAL activity for 6 weeks or until advised by your OB provider; Nothing in vagina: intercourse, tampons, or douching. Begin to think about your reproductive life plan. Talk to your OB provider about if and when you would like another baby in the future. The recommendation for safe spacing is 18-24 months. Showering is okay; NO tub baths, swimming, or hot tubs. Gradually increase your activity. Resume exercise regimen only after advised by your )OB provider. Avoid lifting anything heavier than ten pounds or a gallon of milk for six weeks. Avoid driving 1 week for vaginal delivery and 2 weeks for section, or longer if you are on prescription pain medicine unless otherwise instructed by your OB provider . Rise slowly from a lying to sitting and then a standing position. Climb stairs carefully. You may feel tired or have a lack of energy. You may continue your vitamin to replenish nutrients post-delivery. Nap when whenever you can to catch up on sleep. EMOTIONS You may feel torres, sad, teary, & overwhelmed for the first 2 weeks ; however, feelings of depression may occur any time within the first year after delivery. Contact your OB provider if you feel you may be showing signs of depression, or have thoughts of harming yourself or or anyone.. WOUND CARE For Vaginal Delivery: Shower daily, and cleanse your perineum (bottom) with mild soap from front to back. Use the plastic squirt bottle until bleeding stops each time you use the restroom instead of wiping with toilet paper. Ease soreness of hemorrhoids and the area between your vagina and rectum with ice compresses or witch adriel pads. If used, stitches will dissolve in 4-6 weeks on their own. You may use a sitz bath or soak in a clean tub with drain open and water running for comfort. Kegel exercises will help restore bladder control. To do these tighten your muscles as if you were stopping your urine flow. Hold for a few seconds and then relax. Do these throughout the day. For Section Delivery: Keep your incision clean and dry. If you had steri-strips you may remove these once they start falling off. If you have angie they need to be removed 3-10 daysafter delivery. If you have steri-strips, remove after 7 - 10 days. Do not wear clothing that irritates the incision line. If your incision is in a crease that is not dry, use a hair-dryer to dry the area 3 times a day. If you develop fever, shaking chills, redness, swelling, drainage or discharge from your wound, or if your wound looks like it is coming apart call your provider immediately. BREAST CARE If you develop a warm, red, tender area on your breast or develop a fever contact your OB provider. If your breasts become engorged ask your provider because treatment can vary according to your needs. DIET & CONSTIPATION Eat a well-balanced diet focusing on foods high in fiber and protein such as: whole grain cereals and breads, fruits and vegetables and legumes (eg, beans, lentils) Drink 8-10 glasses of fluids daily, especially water. Limit caffeine. To avoid constipation you may take a mild [id number] stool softener (such as colace) as recommended by your OB provider. SWELLING Try to keep your legs elevated when you are sitting or lying down. Stay hydrated and take walks. If you had high blood pressure, weigh yourself at the same time each day. Write down your weight and take the record to your doctor appointment. MEDICATIONS Take all medications prescribed for you exactly as ordered. Don't take any drugs not prescribed to you or over the counter medicines unless recommended by your provider. Don't smoke. WHEN TO CALL THE OB PROVIDER Signs of infection, including fever and chills Increased bleeding: soaking more than one pad an hour or passing clots the size of an egg or larger. Wounds that become red, swollen or drain pus Vaginal discharge that smells foul New pain, swelling, or tenderness in your legs Pain that you can't control with the medications you've been given Pain, burning, urgency or frequency of urination, or persistent bleeding in the urine Cough, shortness of breath, or serious difficulty catching your breath Chest pain or pain in the upper right area of your belly Headache (very painful) or vision changes like blurry or double vision, seeing spots or 'auras' Swelling that is worse or weight gain of more than 3 pounds in 3 days Depression, suicidal thoughts, or feelings of harming someone else Breasts that are hot, red and accompanied by fever Any cracking or bleeding from the nipple or areola (the dark-colored area of the breast) You may have been given a magnet like this: If so, we encourage you to use it on your refrigerator as a reminder of when to call the doctor. IIn case of an emergency, call 911 immediately. If you are Covid-19 positive or a Person Under Investigation (PUI) These could be signs that your COVID-19 symptoms are worsening and you may need emergency care: You are severely dizzy or lightheaded. You are confused or can't think clearly. Your face and lips have a blue color. You are unable to respond to others or are very hard to wake up. Prevention steps for People with confirmed or suspected COVID-19 (including persons under investigation) who do not need to be hospitalized and People with confirmed COVID-19 who were hospitalized and determined to be medically stable to go home Your healthcare provider and public health staff will evaluate whe ther you can be cared for at home. If it is determined that you do not need to be hospitalized and can be isolated at home, you will be monitored by staff from your local or state health department. You should follow the prevention steps below until a healthcare provider or local or state health department says you can return to your normal activities. Stay home except to get medical care People who are mildly ill with COVID-19 are able to isolate at home during their illness. You should restrict activities outside your home, except for getting medical care. Do not go to work, school, or public areas. Avoid using public transportation, ride-sharing, or taxis. Separate yourself from other people and animals in your home People: As much as possible, you should stay in a specific room and away from other people in your home. Also, you should use a separate bathroom, if available. Animals: You should restrict contact with pets and other animals while you are sick with COVID-19, just like you would around other people. Although there have not been reports of pets or other animals becoming sick with COVID-19, it is still recommended that people sick with COVID-19 limit contact with animals until more information is known about the virus. When possible, have another member of your household care for your animals while you are sick. If you are sick with COVID-19, avoid contact with your pet, including petting, snuggling, being kissed or licked, and sharing food. If you must care for your pet or be around animals while you are sick, wash your hands before and after you interact with pets and wear a facemask. Call ahead before visiting your provider If you have a medical appointment, call the healthcare provider and tell them that you have or may have COVID-19. This will help the healthcare provider's office take steps to keep other people from getting infected or exposed. Wear a facemask You should wear a facemask when you are around other people (e.g., sharing a room or vehicle) or pets and before you enter a healthcare provider's office. If you are not able to wear a facemask (for example, because it causes trouble breathing), then people who live with you should not stay in the same room with you, or they should wear a facemask if they enter your room. Cover your coughs and sneezes Cover your mouth and nose with a tissue when you cough or sneeze. Throw used tissues in a lined trash can. Immediately wash your hands with soap and water for at least 20 seconds or, if soap and water are not available, clean your hands with an alcohol-based hand juvenile probation officer that contains at least 60% alcohol. Clean your hands often Wash your hands often with soap and water for at least 20 seconds, especially after blowing your nose, coughing, or sneezing; going to the bathroom; and before eating or preparing food. If soap and water are not readily available, use an alcohol-based hand juvenile probation officer with at least 60% alcohol, covering all surfaces of your hands and rubbing them together until they feel dry. Soap and water are the best option if hands are visibly dirty. Avoid touching your eyes, nose, and mouth with unwashed hands. Avoid sharing personal household items You should not share dishes, drinking glasses, cups, eating utensils, towels, or bedding with other people or pets in your home. After using these items, they should be washed thoroughly with soap and water. Clean all high-touch surfaces everyday High touch surfaces include counters, tabletops, doorknobs, bathroom fixtures, toilets, phones, keyboards, tablets, and bedside tables. Also, clean any surfaces that may have blood, stool, or body fluids on them. Use a household cleaning spray or wipe, according to the label instructions. Labels contain instructions for safe and effective use of the cleaning product including precautions you should take when applying the product, such as wearing gloves and making sure you have good ventilation during use of the product. Monitor your symptoms Seek prompt medical attention if your illness is worsening (e.g., difficulty breathing). Before seeking care, call your healthcare provider and tell them that you have, or are being evaluated for, COVID-19. Put on a facemask before you enter the facility. These steps will help the healthcare provider's office to keep other people in the office or waiting room from getting infected or exposed. Ask your healthcare provider to call the local or state health department. Persons who are placed under active monitoring or facilitated self-monitoring should follow instructions provided by their local health department or occupational health professionals, as appropriate. When working with your local health department check their available hours. If you have a medical emergency and need to call 911, notify the dispatch personnel that you have, or are being evaluated for COVID-19. If possible, put on a facemask before emergency medical services arrive. Discontinuing home isolation Patients with confirmed COVID-19 should remain under home isolation precautions until the risk of secondary transmission to others is thought to be low. The decision to discontinue home isolation precautions should be made on a qqmf-jh-cyuf basis, in consultation with healthcare providers and state and local health departments. Information on COVID-19 for all patients Call your provider before your next appointment if you develop any of the following symptoms: fever, cough, fatigue, anorexia, shortness of breath, sputum production, and muscle pains. Headache, confusion, rhinorrhea, sore throat, hemoptysis, vomiting, and diarrhea have been reported but are less common. Some persons with COVID-19 have experienced gastrointestinal symptoms such as diarrhea and nausea prior to developing fever and lower respiratory tract signs and symptoms. Ways to [place] with Anxiety & Stress It is normal to feel anxious or worried about COVID-19. You might feel sad about canceling celebrations and staying away from family and friends. Keep in mind that most people do not get severely ill from COVID-19. It is important to have a plan in case you get sick to prevent spreading the disease to others including an Advanced Care Plan (communicating and documenting your desired health care plan with family and healthcare team). You can take care of yourself by: ? Taking a break from watching the news ? Take deep breaths, stretch or meditate ? Getting exercise, eating healthy foods, and drinking plenty of water ? Finding activities you can enjoy inside your home ? Staying in touch with your family and friends. Tell your partner, family, and friends how you are feeling. Advance Care Planning People with COVID-19 may have no symptoms, mild symptoms, such as fever, cough, and shortness of breath or they may have more severe illness, developing severe and fatal pneumonia. As a result, Advance Care Planning with attention to naming a health care decision maker (someone you trust to make healthcare decisions for you if you could not speak for yourself) and sharing other health care preferences is important BEFORE a possible health crisis. Please contact your Primary Care Provider to discuss Advance Care Planning. Learning About Coronavirus (COVID-19) Coronavirus (COVID-19): Overview What is coronavirus (COVID-19)? The coronavirus disease (COVID-19) is caused by a virus. It is an illness that was first found in [facility], in March 2019. It has since spread worldwide. The virus can cause fever, cough, and trouble breathing. In severe cases, it can cause pneumonia and make it hard to breathe without help. It can cause . Coronaviruses are a large group of viruses. They cause the common cold. They also cause more serious illnesses like [place] East respiratory syndrome (MERS) and severe acute respiratory syndrome (SARS). COVID-19 is caused by a novel coronavirus. That means it's a new type that has not been seen in people before. This virus spreads ouwwim-gy-mtvbbp through droplets from coughing and sneezing. It can also spread when you are close to someone who is infected. It is always good practice to clean high touch surfaces frequently and avoid touching your mouth, nose and eyes until you have washed your hands if you touched these areas. What can you do to protect yourself from coronavirus (COVID-19)? The best way to protect yourself from getting sick is to: Wear a face mask. Avoid areas where there is an outbreak. Avoid contact with people who may be infected. Wash your hands often with soap or alcohol-based hand sanitizers. Avoid crowds and try to stay at least 6 feet away from other people. Wash your hands often, especially after you cough or sneeze. Use soap and water, and scrub for at least 20 seconds. If soap and water aren't available, use an alcohol-based hand juvenile probation officer. Call 911 anytime you think you may need emergency care. For example, call if: You have severe trouble breathing. (You can't talk at all.) You have constant chest pain or pressure. You are severely dizzy or lightheaded. You are confused or can't think clearly. Your face and lips have a blue color. You pass out (lose consciousness) or are very hard to wake up. Call your OB Provider now if you develop symptoms such as: Shortness of breath. Fever. Cough. If you need to get care, call ahead to the provider's office for instructions before you go. Make sure you wear a face mask, to prevent exposing other people to the virus. Where can you get the latest information? The following health organizations are tracking and studying this virus. Their websites contain the most up-to-date information. You'll also learn what to do if you think you may have been exposed to the virus. U.S. Centers for Disease Control and Prevention (CDC): The CDC provides updated news about the disease and travel advice. The website also tells you how to prevent the spread of infection. www.cdc.gov World Health Organization (WHO): WHO offers information about the virus outbreaks. WHO also has travel advice. www.who.int Current as of: July 04, 2019 Content Version: 12.4 [employer]. Care instructions adapted under license by your healthcare professional. If you have questions about a medical condition or this instruction, always ask your healthcare professional. [employer] disclaims any warranty or liability for your use of this information. General Recommendations for Routine Cleaning and Disinfection of Households Community members can practice routine cleaning of frequently touched surfaces (for example: tables, doorknobs, light switches, handles, desks, toilets, faucets, sinks) with household tank worker and EPA-registered disinfectants that are appropriate for the surface, following label instructions. Labels contain instructions for safe and effective use of the cleaning product including precautions you should take when applying the product, such as wearing gloves and making sure you have good ventilation during use of the product. These guidelines are focused on household settings and are meant for the general public. Cleaning refers to the removal of germs, dirt, and impurities from surfaces. Cleaning does not kill germs, but by removing them, it lowers their numbers and the risk of spreading infection. Disinfecting refers to using chemicals to kill germs on surfaces. This process does not necessarily clean dirty surfaces or remove germs, but by killing germs on a surface after cleaning, it can further lower the risk of spreading infection. General Recommendations for Cleaning and Disinfection of Households with People Isolated in Home Care - Confirmed or suspected COVID 19 Household members should educate themselves about COVID-19 symptoms and preventing the spread of COVID-19 in homes. Clean and disinfect high-touch surfaces daily in household common areas (e.g. tables, hard-backed chairs, doorknobs, light switches, remotes, handles, desks, toilets, sinks) o In the bedroom/bathroom dedicated for an ill person: consider reducing cleaning frequency to as-needed (e.g., soiled items and surfaces) to avoid unnecessary contact with the ill person. - As much as possible, an ill person should stay in a specific room and away from other people in their home. - The caregiver can provide personal cleaning supplies for an ill person's room and bathroom, unless the room is occupied by child or another person for whom such supplies would not be appropriate. These supplies include tissues, paper towels, tank worker and EPA-registered disinfectants (see list link at [facility] website). - If a separate bathroom is not available, the bathroom should be cleaned and disinfected after each use by an ill person. If this is not possible, the caregiver should wait as long as practical after use by an ill person to clean and disinfect the high-touch surfaces. How to clean and disinfect: Hard Surfaces Wear disposable gloves when cleaning and disinfecting surfaces. Gloves should be discarded after each cleaning. If reusable gloves are used, those gloves should be dedicated for cleaning and disinfection of surfaces for COVID-19 and should not be used for other purposes. Consult the apartment leasing agent's instructions for cleaning and disinfection products used. Clean hands immediately after gloves are removed. If surfaces are dirty, they should be cleaned using a detergent or soap and water prior to disinfection. For disinfection, diluted household bleach solutions, alcohol solutions with at least 70% alcohol, and most common EPA-registered household disinfectants should be effective. o Diluted household bleach solutions can be used if appropriate for the surface. Follow apartment leasing agent's instructions for application and proper ventilation. Check to ensure the product is not past its expiration date. Never mix household bleach with ammonia or any other cleanser. Unexpired household bleach will be effective against coronaviruses when properly diluted. - Prepare a bleach solution by mixing: - 5 tablespoons (1/3rd cup) bleach per gallon of water or - 4 teaspoons bleach per quart of water o Products with EPA-approved emerging viral pathogens [facility] iconexternal icon are expected to be effective against COVID-19 based on data for harder to kill viruses. Follow the apartment leasing agent's instructions for all cleaning and disinfection products (e.g., concentration, application method and contact time, etc.). Soft (porous) surfaces such as carpeted floor, rugs, and drapes Remove visible contamination if present and clean with appropriate tank worker indicated for use on these surfaces. After cleaning: Launder items as appropriate in accordance with the apartment leasing agent's instructions. If possible, launder items using the warmest appropriate water setting for the items and dry items completely, or Clothing, towels, linens and other items that go in the laundry Wear disposable gloves when handling dirty laundry from an ill person and then discard after each use. If using reusable gloves, those gloves should be dedicated for cleaning and disinfection of surfaces for COVID-19 and should not be used for other household purposes. Clean hands immediately after gloves are removed. o If no gloves are used when handling dirty laundry, be sure to wash hands afterwards. o If possible, do not shake dirty laundry. This will minimize the possibility of dispersing virus through the air. o Launder items as appropriate in accordance with the apartment leasing agent's instructions. If possible, launder items using the warmest appropriate water setting for the items and dry items completely. Dirty laundry from an ill person can be washed with other people's items. o Clean and disinfect clothes hampers according to guidance above for surfaces. If possible, consider placing a paper bag machine operator that is either disposable (can be thrown away) or can be laundered. CDC has a list of EPA approved cleaning products on their website - https://www.cdc.gov/coronavirus/ 2019-ncov/community/home/cleanin g-disinfection.html https://www.[employer] (V3D)istry.co m/Coxqw-Svjkskbatah-Dqlkjyqo-Pro ducts-List.pdf [employer] with delivery and sweet pickled fruit maker services: [employer]: Free sweet pickled fruit maker at locations Delivery is $12.95 a month Website - [employer]: International Coordinator $2.95 (1st order is free) Delivery is $14.95 Website - [employer]: superintendent quarry is free Delivery is $5.95 Website [facility] [employer]: superintendent quarry is $4.95 Delivery is $9.95 Website [employer]: superintendent quarry is $4.95 Delivery is $9.95 Website [employer]: Can be ordered for delivery and sweet pickled fruit maker with [employer] Website - www.[employer]: Free deliver for first 3 orders of $35 or more Website [email or web address] Shipt.com Will deliver from [facility], [facility], [employer], and [employer]. Annual membership is $99 Monthly membership is $14 documented in this encounter [facility] Work Phone: 06-11-2021 Note Obstetric Discharge Summary Macy Flores 06/11/21 Reasons for Admission on 06/08/2021 12:02 AM Category II heart rate tracing during maternal care in third trimester [O36.8330] Onset of Labor Problem List: Patient Active Problem List Diagnosis ? care - CNM CARE FOR ? Abnormal genetic test during ? Pyelectasis of fetus on ultrasound ? GBS (group B Streptococcus carrier), +RV culture, currently ? Category II heart rate tracing during maternal care in third trimester ? Normal spontaneous vaginal delivery Operations & Procedures: Delivery Type: spontaneous vaginal Delivery Complications: none Pertinent Findings & Procedures: Information for the patient's : Artie Flores [[id number]] male Weight: 8 lb (3.629 kg) Apgars: Information for the patient's : Artie Flores [[id number]] One Minute : 8 Five Minute : 9 course normal. Labs: Lab Results Component Value Date HGB 10.2 (L) 06/08/2021 Lab Results Component Value Date HCT 33.2 (L) 06/08/2021 O POS Antibody Screen: Antibody Screen Date Value Ref Range Status 06/08/2021 NEG NA Final Lab Results Component Value Date RUBELLAIGG 59.2 11/12/2020 No results found for: GBSCX Discharge to: Home Contraception: condoms : yes Medications: Medication List START taking these medications ibuprofen 600 MG tablet Commonly known as: ADVIL;MOTRIN Take 1 tablet by mouth every 6 hours CHANGE how you take these medications docusate sodium 100 MG capsule Commonly known as: COLACE Take 1 capsule by mouth 2 times daily as needed for Constipation What changed: ? when to take this ? reasons to take this CONTINUE taking these medications Breast Pump Misc 1 each by Does not apply route as needed () DOUBLE ELECTRIC BREAST PUMP: Use as needed for [place] Feeding problems (ICD10 P92.9), Sore nipples (ICD10 092.13), Maternal fatigue (ICD10 R53.83) , Engoregment (ICD10 O92.6) or Decrease milk supply (ICD10 O92.5) 1 PO STOP taking these medications ondansetron 4 MG disintegrating tablet Commonly known as: ZOFRAN-ODT pyridoxine 25 MG tablet Commonly known as: B-6 UNISOM PO Where to Get Your Medications These medications were [facility] [place] [address] [facility] - [phone] - [phone] [address] [facility] [facility] [address] ? docusate sodium 100 MG capsule ? ibuprofen 600 MG tablet Activity: See discharge instruction sheet Diet: Regular Follow up: In 6 week(s) with [facility] 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 Condition on discharge: good and stable Discharge date: 06/11/2021 Discharge Diagnosis: S/P Spontaneous Vaginal Delivery, O80 Comments: Home care, Follow-up care and control were reviewed. Signs and symptoms of Mastitis and Depression were reviewed. The patient is to notify her physician if any of these occur. See Discharge Instruction Sheet Corinna Chaves APRN - KARLY on 06/11/2021 at 9:18 AM [facility] 06-11-2021 Hospital course Narrative Images from the original note were not included. Obstetric Discharge Summary Macyaislinn Lozanoory 06/11/21 Reasons for Admission on 06/08/2021 12:02 AM Category II heart rate tracing during maternal care in third trimester [O36.8330] Onset of Labor Problem List: Patient Active Problem List Diagnosis care - CN CARE FOR Abnormal genetic test during Pyelectasis of fetus on ultrasound GBS (group B Streptococcus carrier), +RV culture, currently Category II heart rate tracing during maternal care in third trimester Normal spontaneous vaginal delivery Operations & Procedures: Delivery Type: spontaneous vaginal Delivery Complications: none Pertinent Findings & Procedures: Information for the patient's : Artie Flores [[id number]] male Weight: 8 lb (3.629 kg) Apgars: Information for the patient's : Artie Flores [[id number]] One Minute : 8 Five Minute : 9 course normal. Labs: Lab Results Component Value Date HGB 10.2 (L) 06/08/2021 Lab Results Component Value Date HCT 33.2 (L) 06/08/2021 O POS Antibody Screen: Antibody Screen Date Value Ref Range Status 06/08/2021 NEG NA Final Lab Results Component Value Date RUBELLAIGG 59.2 11/12/2020 No results found for: GBSCX Discharge to: Home Contraception: condoms : yes Medications: Medication List START taking these medications ibuprofen 600 MG tablet Commonly known as: ADVIL;MOTRIN Take 1 tablet by mouth every 6 hours CHANGE how you take these medications docusate sodium 100 MG capsule Commonly known as: COLACE Take 1 capsule by mouth 2 times daily as needed for Constipation What changed: when to take this reasons to take this CONTINUE taking these medications Breast Pump Misc 1 each by Does not apply route as needed () DOUBLE ELECTRIC BREAST PUMP: Use as needed for [place] Feeding problems (ICD10 P92.9), Sore nipples (ICD10 092.13), Maternal fatigue (ICD10 R53.83) , Engoregment (ICD10 O92.6) or Decrease milk supply (ICD10 O92.5) 1 PO STOP taking these medications ondansetron 4 MG disintegrating tablet Commonly known as: ZOFRAN-ODT pyridoxine 25 MG tablet Commonly known as: B-6 UNISOM PO Where to Get Your Medications These medications were sent to [facility] [address] - [phone] - [phone] [address] [facility] [address] docusate sodium 100 MG capsule ibuprofen 600 MG tablet Activity: See discharge instruction sheet Diet: Regular Follow up: In 6 week(s) with [facility] 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 Condition on discharge: good and stable Discharge date: 06/11/2021 Discharge Diagnosis: S/P Spontaneous Vaginal Delivery, O80 Comments: Home care, Follow-up care and control were reviewed. Signs and symptoms of Mastitis and Depression were reviewed. The patient is to notify her physician if any of these occur. 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 History: (Detailed history is noted in the genetic counselor's note) Imaging: Please refer to the ultrasound report for full details. 1. Single living intrauterine with biometry consistent with clinical dates. 2. Anatomic survey was adequately visualized and appeared normal. 3. Amniotic fluid appeared normal. 4. Placenta is posterior without previa. 5. Transvaginal cervical length to evaluate for risk for labor was performed and appeared normal, 38.8 mm. Genetic Counseling Summary I discussed the following issues: 1. Patient's father had DVT following MVA. She has no information that he was diagnosed with thrombophilia. 2. Testing results and possible association with mosaic or full trisomy 13, partial trisomy 13 or partial monosomy, CPM, maternal chromosome 13 abnormality, or normal variation 3. Discussion of follow up testing. She expressed understanding of the above information. [facility] Plan of Care Diagnosis: Atypical Finding on NIPT 1. Continued obstetrical care with her primary window caser is recommended. 2. Anatomy ultrasound around 18-20 weeks gestation. This is already planned with the Treatment [place]. 3. Growth ultrasound between 24 and 26 weeks gestation. Consider additional follow up to evaluate biometric parameters and anatomy. 4. echocardiogram is recommended with Pediatric Cardiology and will be arranged. 5. Consider surveillance given cell free DNA screening results and the potential for placental mosaicism or other abnormality. This can be done with primary window caser. 6. Delivery is already planned in [place] with follow up as indicated. 7. Mode and timing of delivery are based on the usual obstetrical indications. 8. Pediatric provider to examine and determine if additional evaluations are recommended prior to discharge. 9. Microarray postnatally if clinically indicated (send 3cc blood in a green top (sodium heparin) tube AND 3cc blood in a purple top (EDTA) tube for Cytogenomic Microarray Analysis of Blood ([facility]) to [facility]). 10. Follow up with Medical Genetics as indicated. The resistor inspector or patient can request this consultation. Call [phone] to schedule. Indicate that you were followed by the Treatment Center when scheduling. 11. Otherwise, follow up as clinically indicated. Her Plan of Care summary will be distributed. The total patient time of the visit was 20 minutes spent counseling and coordinating care. Discussion topics are listed above. Elizabeth Thrasher MD [facility] Physician, Maternal- Medicine [facility] Evaluation note Diagnosis Normal spontaneous vaginal delivery- Primary Normal delivery GBS (group B Streptococcus carrier), +RV culture, currently Supervision of other high-risk Pyelectasis of fetus on ultrasound Abnormal genetic test during care, antepartum Category II heart rate tracing during maternal care in third trimester documented in this encounter [facility] Work Phone: Evaluation note* Diagnosis Breast abscess Inflammatory disease of breast documented in this encounter [facility] Work Phone: Evaluation note* Diagnosis Depression affecting - Primary [facility] Diagnosis Depression affecting - Primary [facility]* Diagnosis care, antepartum- Primary [facility]* Diagnosis care, antepartum- Primary Need for Tdap vaccination Need for prophylactic vaccination with combined wizoqzjusl-aylwnwq-keczodram (DTP) vaccine [facility]* Diagnosis Threatened - Primary Threatened - Primary 8 weeks gestation of documented in this encounter [facility]* Diagnosis care in third trimester- Primary [facility]* Diagnosis care, antepartum- Primary 32 weeks gestation of Antepartum anemia Dysuria during , antepartum [facility]* Diagnosis care in third trimester- Primary documented in this encounter [facility]* Diagnosis care, antepartum- Primary screening for streptococcus B screening for Streptococcus B documented in this encounter [facility]* Diagnosis care, subsequent , third trimester- Primary documented in this encounter [facility]* Diagnosis care, antepartum- Primary [facility]* Diagnosis care, antepartum documented in this encounter [facility] note* Diagnosis Antepartum anemia- Primary Family history of chromosomal microdeletion 40 weeks gestation of documented in this encounter [facility] note* Diagnosis 41 weeks gestation of - Primary documented in this encounter [facility] note* Diagnosis with inconclusive viability, single or unspecified fetus- Primary documented in this encounter [facility] note* Diagnosis with inconclusive viability, single or unspecified fetus- Primary documented in this encounter [facility] note* Diagnosis care, subsequent , unspecified trimester- Primary documented in this encounter [facility] note* Diagnosis Encounter for supervision of other normal in second trimester- Primary Encounter for screening for malformation Encounter for screening for cervical length documented in this encounter [facility] note* Diagnosis care, antepartum- Primary Encounter for follow-up ultrasound of anatomy 18 weeks gestation of care, antepartum- Primary care, antepartum- Primary care, antepartum- Primary Need for Tdap vaccination Need for prophylactic vaccination with combined afgydflxre-aqwacyn-ernqcrxye (DTP) vaccine care in third trimester- Primary care, antepartum- Primary 32 weeks gestation of Antepartum anemia Dysuria during , antepartum care in third trimester- Primary care, antepartum- Primary screening for streptococcus B screening for Streptococcus B care, antepartum- Primary care, antepartum- Primary care, antepartum Antepartum anemia- Primary Family history of chromosomal microdeletion 40 weeks gestation of Encounter for gynecological examination without abnormal finding- Primary Screening for cervical cancer Screening for malignant neoplasm of the cervix documented in this encounter [facility] for referral (narrative)* Consultation (Routine) - Pending Review Specialty Diagnoses / Procedures Referred By Ugo lisa Referred To Contact Psychology Diagnoses Depression affecting Procedures DC OFFICE/OUTPATIENT [facility] 60-74 MINUTES Agustina Tapia MD [address] [place] [address] [address] [place] [address] Referral ID Status Reason Start Date Expiration Date Visits Requested Visits Authorized [id number] Pending Review Specialty Services Required 07/14/2022 07/14/2023 1 1 [facility]ative[facility] Consultation (Routine) - Pending Review Specialty Diagnoses / Procedures Referred By Contac t Referred To Contact Psychology / Behavioral Health Diagnoses Depression affecting Procedures DC OFFICE/OUTPATIENT NEW [facility]DM 60-74 MINUTES Agustina Tapia MD [address] [place] [address] [facility] [address] [place] [address] Referral ID Status Reason Start Date Expiration Date Visits Requested Visits Authorized [id number] Pending Review Specialty Services Required 07/14/2022 07/14/2023 1 1 [facility] Summary Purpose Family History No Family History Records FoundNo Family History Records FoundNo Family History Records FoundNo Family History Records FoundNo Family History Records FoundNo Family History Records FoundNo Family History Records Found Advance Directives No Advanced Directives Records FoundLatest Code Status on File Code Status Date Activated Date Inactivated Comments Full Code 06/08/2021 12:45 AM 06/09/2021 3:17 PM Latest Code Status on File Code Status Date Activated Date Inactivated Comments Full Code 06/08/2021 12:45 AM 06/09/2021 3:17 PM Latest Code Status on File Code Status Date Activated Date Inactivated Comments Full Code 12/31/2022 11:28 PM 01/03/2023 3:50 PM Date Activated Date Inactivated Comments 12/31/2022 11:28 PM 01/03/2023 3:50 PM Reason for Referral Specialty Diagnoses / Procedures Referred By Contac t Referred To Contact Radiology Diagnoses Breast abscess Procedures US Breast Limited Left Deena Fontana MD [address] [place] [address] Referral ID Status Reason Start Date Expiration Date Visits Re quested Visits Authorized [id number] Open 09/28/2021 09/28/2022 1 1 Additional Source Comments INFORMATION SOURCE (unrecogn ized section and content) DATE CREATED AUTHOR 02/09/2018 [facility] DATE CREATED AUTHOR AUTHOR'S ORGANIZ ATION 02/15/2018 [facility] DATE CREATED AUTHOR AUTHOR'S ORGANIZ ATION 06/19/2018 [facility] DATE CREATED AUTHOR AUTHOR'S ORGANIZ ATION 04/30/2021 [facility] DATE CREATED AUTHOR AUTHOR'S ORGANIZ ATION 08/20/2021 [facility] DATE CREATED AUTHOR AUTHOR'S ORGANIZ ATION 08/27/2021 [facility] DATE CREATED AUTHOR AUTHOR'S ORGANIZ ATION 11/18/2024 [facility] Reason for Visit (unrecogniz ed section and content) Reason Comments Rupture of Membranes r/o ROM Reason Onset Date Comments Referral 07/13/2022 [facility] Reason Onset Date Comments Referral 07/13/2022 [facility] Follow-up 07/13/2022 External Referra l Reason Comments Routine Visit Reason Onset Date Comments Medication Question 09/02/2022 Reason Comments Routine Visit 28 wks RHYS Reason Comments Routine Visit 29w6d Reason Comments Routine Visit 32w1d Reason Comments Routine Visit 40 wk Reason Comments Routine Visit 40w5d, no lof, no bleeding, having contractions nothing constant, wants checked no flu shot Reason Comments Rupture of Membranes Reason Onset Date Comments Rupture of Membranes 12/29/2022 Specialty Diagnoses / Procedures Referred By Ugo lisa Referred To Contact Diagnoses 41 weeks gestation of Procedures . Flavio Yanez MD [address] [place] [address] [address] [place] [address] [facility] Deliver [address] [place] [address] Referral ID Status Reason Start Date Expiration Date Visits Re quested Visits Authorized [id number] 1 1 Reason Comments Follow-up results Reason Comments Amenorrhea Reason Onset Date Comments Vaginal Bleeding 04/28/2022 Reason Comments Initial Visit Reason Comments Annual Exam Reason Onset Date Comments Rash 11/17/2024 Ordered Prescriptions (unrec ognized section and content) Prescription Sig Dispensed Refills Start Date End Da te docusate sodium (COLACE) 100 MG capsule Take 1 capsule by mouth 2 times daily as needed for Constipation 60 capsule 1 06/11/2021 ibuprofen (ADVIL;MOTRIN) 600 MG tablet Take 1 tablet by mouth every 6 hours 120 tablet 3 06/11/2021 Scheduled Active and Recently Administ ered Medications (unrecognized section and content) Medication Order 06/09/2021 06/10/2021 06/11/2021 ibuprofen (ADVIL;MOTRIN) tablet 600 mg (COMPLETED) 600 mg, Oral, ONCE, On Tue06/08/21 at 0115, For 1 dose, IMMEDIATE . Do not crush or chew. DO NOT GIVE IBUPROFEN PRIOR TO DELIVERY., Post Delivery 1334 (Given - Provider: Candace Gonzalez, RN) ibuprofen (ADVIL;MOTRIN) tablet 600 mg 600 mg, Oral, EVERY 6 HOURS, First dose on Tue06/09/21 at 2000, Do not crush or chew., 1921 (Given - Provider: Akil Gotti RN) 0116 (Given - Provider: Maria Eugenia Barillas, RAYMOND)0744 (Given - Provider: Tiki Morse, RAYMOND)1427 (Given - Provider: Tiki Morse RN)2031 (Given - Provider: Rachell Chaves RN) 0347 (Given - Provider: Rachell Chaves RN)0956 (Given - Provider: Nu Joseph, RAYMOND)1400 (Due)1714 (Given - Provider: Nu Joseph RN)2000 (Due) measles, mumps & rubella vaccine (MMR) injection 0.5 mL 0.5 mL, SubCUTAneous, PRIOR TO DISCHARGE, Starting on Tue06/09/21 at 1517, For 1 dose, Administer only if non-immune or equivical, oxyCODONE (ROXICODONE) immediate release tablet 5 mg (COMPLETED) 5 mg, Oral, ONCE, On Tue06/09/21 at 1645, For 1 dose 1705 (Given - Provider: Laverne Byrnes, RAYMOND) penicillin G potassium in d5w IVPB 2.5 Million Units (CANCELED) 2.5 Million Units, IntraVENous, EVERY 4 HOURS, First dose on Tue06/08/21 at 0600, Until Discontinued, Begin 4 hours after loading dose. Continue until delivery., Labor and Delivery 0300 (New Bag - Provider: Talita Tyson RN)0400 (Stopped - Provider: Talita L Law, RN)0657 (New Bag - Provider: Talita Tyson RN)0730 (Stopped - Provider: Cnadace Gonzalez, RN)1107 (New Bag - Provider: Candace Gonzalez RN)1225 (Stopped - Provider: Candace Gonzalez RN)1500 (Due - Provider: Candace Gonzalez, RN) terbutaline (BRETHINE) injection 0.25 mg (COMPLETED) 0.25 mg, SubCUTAneous, ONCE, On Tue06/09/21 at 0315, For 1 dose 0134 (Given by Other - Provider: Talita Tyson RN) kjqwkjk-zrqagm-elzrj pertussis (BOOSTRIX) injection 0.5 mL 0.5 mL, IntraMUSCular, PRIOR TO DISCHARGE, Starting on Tue06/09/21 at 1517, For 1 dose, If not previously administered during at 27-36 weeks as recommended by CDC., Continuous Medication Order 06/09/2021 06/10/2021 06/11/2021 oxytocin (PITOCIN) 10 unit bolus from the bag 500 mL (30 Units), IntraVENous, Administer over 75 Minutes, TITRATED, Starting on Tue06/09/21 at 1245, For Immediate Post Use Only. Give after delivery of placenta. Bag 1 of 2: Bolus for bag to infuse at 999 ml/hour for 15 minutes (15 units in 250cc). After initial bolus then decrease rate to 250cc/hr for 1 hour. Then discontinue. 1154 (New Bag - Provider: Candace Gonzalez RN)1334 (Stopped - Provider: Candace Gonzalez RN) PRN Medication Order 06/09/2021 06/10/2021 06/11/2021 acetaminophen (TYLENOL) tablet 650 mg (CANCELED) 650 mg, Oral, EVERY 4 HOURS PRN, Pain Mild (1-3), Fever, Fever >100.5 F (38 C), Starting on Tue06/08/21 at 0044, Maximum dose of acetaminophen is 4000 mg from all sources in 24 hours. 1333 (Given - Provider: Candace Gonzalez, RN) acetaminophen (TYLENOL) tablet 650 mg 650 mg, Oral, EVERY 6 HOURS PRN, Pain Mild (1-3), Starting on Tue06/09/21 at 1517, Maximum dose of acetaminophen is 4000 mg from all sources in 24 hours., 1920 (Given - Provider: Akil Gotti RN) 0116 (Given - Provider: Maria Eugenia Barillas RN)0744 (Given - Provider: Tiki Morse RN)1428 (Given - Provider: Tiki Morse RN)2030 (Given - Provider: Rachell Chaves RN) 0347 (Given - Provider: Rachell Chaves RN)0955 (Given - Provider: Nu Joseph RN)1714 (Given - Provider: Nu Joseph RN) benzocaine-benzethonium (DERMOPLAST) 20-0.2 % spray Topical, PRN, Pain, Starting on Tue06/09/21 at 1517, Apply to perineal area. Patient is capable and may self administer at bedside., 1559 (Given - Provider: Laverne Byrnes RN) docusate sodium (COLACE) capsule 100 mg 100 mg, Oral, 2 TIMES DAILY PRN, Constipation, Starting on Tue06/09/21 at 1517, Do not crush or break., 1920 (Given - Provider: Akil Gotti RN) 0744 (Given - Provider: Tiki Morse RN)2030 (Given - Provider: Rachell Chaves RN) 0840 (Given - Provider: Nu Joseph RN) lansinoh lanolin ointment Topical, PRN, Dry Skin, nipple discomfort, Starting on Tue06/09/21 at 1517, 192 (Given - Provider: Akil Gotti RN) ondansetron (ZOFRAN) injection 4 mg (CANCELED) 4 mg, IntraVENous, EVERY 6 HOURS PRN, Nausea, Starting on 06/08/21 at 0044, Labor and Delivery 0800 (Given - Provider: Candace Gonzalez RN) ondansetron (ZOFRAN-ODT) disintegrating tablet 8 mg 8 mg, Oral, EVERY 8 HOURS PRN, Nausea, Starting on Tue06/09/21 at 1517, oxytocin (PITOCIN) 30 units in 500 mL infusion () 125 yon-units/min (125 mL/hr), IntraVENous, CONTINUOUS PRN, Bleeding, Starting on Tue06/09/21 at 1223, For 4 hours, For Immediate Post Use Only. Give after delivery of placenta and initial 30 unit bolus. Bag 2 of 2: 125cc/hr (125 mu/min) for an additional infusion of 500cc (30 units). 1334 (New Bag - Provider: Candace Gonzalez, RN) simethicone (MYLICON) chewable tablet 80 mg 80 mg, Oral, EVERY 6 HOURS PRN, Cramping, Flatulence, Starting on Tue06/09/21 at 1517, witch adriel-glycerin (TUCKS) pad Topical, PRN, Hemorrhoids, For perineal pain or discomfort, Starting on Tue06/09/21 at 1517, Apply to perineal area. Patient is capable and may self administer at bedside., 1600 (Given - Provider: Laverne Byrnes, RAYMOND) 0041 (Given - Provider: Rachell Chaves, RAYMOND) Scheduled Medication Order 01/01/2023 01/02/2023 01/03/2023 Chlorhexidine Gluconate Cloth 2 % cloth (CANCELED) Topical, Every 6 hours, First dose on Tue12/31/22 at 2330, Pre-Delivery, Apply to the affected area. Clean entire abdomen. 0530 (Given - Provider: Precious Roa RN)1130 (Due)1730 (Not Given - Provider: Akil Gotti RN - Reason: Contraindicated) ferrous sulfate tablet 325 mg 325 mg, Oral, 2 times daily with meals, First dose on Tue01/01/23 at 1745, , Start if Hgb less than 10. 1745 (Not Given - Provider: Akil Gotti, RAYMOND - Reason: Order parameters not met) 0800 (Not Given - Provider: Akil Gotti RN - Reason: Order parameters not met)1700 (Not Given - Provider: Akil Gotti RN - Reason: Order parameters not met) 0800 (Not Given - Provider: Tamara Salmon RN - Reason: Order parameters not met) Continuous Medication Order 01/01/2023 01/02/2023 01/03/2023 lactated ringers infusion (CANCELED) 125 mL/hr, IntraVENous, Continuous, Starting on Tue12/31/22 at 2330, Pre-Delivery 0000 (New Bag - Provider: Precious Roa, RAYMOND)0101 (Stopped - Provider: Precious Roa RN) oxytocin (Pitocin) 30 units in 500 mL infusion (CANCELED) 1-2 yon-units/min (1-2 mL/hr), IntraVENous, Continuous, Starting on 01/01/23 at 0130, Begin infusion at 1 yon-unit/min (1 yon-unit per min = 1 mL per hour) and increase by 1 yon-unit/min after 30 minutes. Then increase by 2 yon-units/min as needed, no faster than every 30 minutes, until labor is achieved. Labor is defined as contractions every 2-3 minutes with cervical changes or Norton units (MVU) greater than 200 in a 10-minute window. Maximum infusion rate: 20 yon-unit/min. Contact provider if maximum rate does not achieve desired response. Provider may order alternative titration goal or other clinically appropriate goal of titration rate (s). Smaller titration increments of 1 yon-units/min, not faster than every 30 minutes, may be used when approaching therapeutic goal. 0150 (New Bag - Provider: Precious Roa, RAYMOND)0334 (Rate/Dose Change - Provider: Precious Roa RN) oxytocin (Pitocin) 30 units in 500 mL infusion (CANCELED) 1-20 yon-units/min (1-20 mL/hr), IntraVENous, Continuous, Starting on 01/01/23 at 0415, Begin infusion at 1 yon-unit/min (1 yon-unit per min = 1 mL per hour) and increase by 1 yon-unit/min after 30 minutes. Then increase by 2 yon-units/min as needed, no faster than every 30 minutes, until labor is achieved. Labor is defined as contractions every 2-3 minutes with cervical changes or Norton units (MVU) greater than 200 in a 10-minute window. Maximum infusion rate: 20 yon-unit/min. Contact provider if maximum rate does not achieve desired response. Provider may order alternative titration goal or other clinically appropriate goal of titration rate (s). Smaller titration increments of 1 yon-units/min, not faster than every 30 minutes, may be used when approaching therapeutic goal. 0445 (Rate/Dose Change - Provider: Precious Roa, RAYMOND) ropivacaine (Naropin) 0.2 % (OB) epidural infusion (CANCELED)(Linked Group 1) 8 mL/hr, Epidural, Continuous, Starting on 01/01/23 at 0645, Pre-Delivery, PCEA Basal Infusion 0652 (New Bag - Provider: Rosemarie Mendoza APRN - ARMORED MACHINE OPERATOR) PRN Medication Order 01/01/2023 01/02/2023 01/03/2023 acetaminophen (Tylenol) tablet 650 mg 650 mg, Oral, Every 6 hours PRN, other, pain (1-10), Starting on 01/01/23 at 1744, Give in addition to any other pain medication ordered at same time for any pain indication. Maximum dose of acetaminophen is 4000 mg from all sources in 24 hours. Alternate ibuprofen and acetaminophen every 3 hours. Give ibuprofen first in the sequence. 1755 (Given - Provider: Akil Gotti RN) 0010 (Given - Provider: Carlee Ulrich RN)0612 (Given - Provider: Carlee Ulrich RN)1201 (Given - Provider: Akil Gotti RN)1816 (Given - Provider: Tayler Ba RN) 0034 (Given - Provider: Carlee Ulrich RN)0609 (Given - Provider: Carlee Ulrich RN) benzocaine 20% containing (Dermoplast) spray Topical, As needed, pain, , Starting on 01/01/23 at 1744, , Apply to perineal area. Patient is capable and may self administer at bedside. 1755 (Given - Provider: Akil Gotti RN) docusate sodium (Colace) capsule 100 mg 100 mg, Oral, 2 times daily PRN, constipation, Vaginal Delivery, Starting on 01/01/23 at 1744, Do not crush or break. 1755 (Given - Provider: Akil Gotti RN) 0908 (Given - Provider: Akil Gotti RN)2200 (Given - Provider: Carlee Ulrich RN) 0822 (Given - Provider: Tamara Salmon RN) famotidine (Pepcid) tablet 20 mg 20 mg, Oral, 2 times daily PRN, heartburn, Starting on 01/01/23 at 1744, , Renal dose per pharmacy for peptic ulcer prophylaxis. ibuprofen tablet 600 mg (COMPLETED) 600 mg, Oral, Once PRN, mild pain (1-3), Starting on Tue12/31/22 at 2327, For 1 dose, Post-Delivery 1435 (Given - Provider: Honey Saunders, RN) ibuprofen tablet 600 mg 600 mg, Oral, Every 6 hours PRN, other, pain (1-10), Starting on 01/01/23 at 1744, Alternate ibuprofen and acetaminophen every 3 hours. Give ibuprofen first in the sequence. 2043 (Given - Provider: Carlee Ulrich, RN) 0304 (Given - Provider: Carlee Ulrich, RN)0907 (Given - Provider: Akil Gotti, RAYMOND)1559 (Given - Provider: Akil Gotti, RAYMOND)2159 (Given - Provider: Carlee Ulrich, RN) 0348 (Given - Provider: Carlee Ulrich, RN)1012 (Given - Provider: Tamara Salmon RN) lactated Ringer's bolus (CANCELED)(Linked Group 2) 1,000 mL, IntraVENous, PRN, Give prior to epidural placement. May be repeated if a second epidural/spinal procedure is performed., Starting on Tue12/31/22 at 2327, Pre-Delivery 0625 (Rate/Dose Change - Provider: Precious Roa, RAYMOND) lanolin (Lansinoh) cream Topical, As needed, dry skin, nipple discomfort, Starting on 01/01/23 at 1744, , Apply to affected area. ondansetron (Zofran) injection 4 mg(Linked Group 3) 4 mg, IntraVENous, Every 6 hours PRN, nausea, vomiting, Starting on 01/01/23 at 1744, 1st Line. Give IV if patient is unable to take orally. If inadequate response within 60 minutes, proceed to next-line agent or contact provider if no further options ordered. ondansetron ODT (Zofran-ODT) disintegrating tablet 4 mg(Linked Group 3) 4 mg, Oral, Every 8 hours PRN, nausea, vomiting, Starting on 01/01/23 at 1744, 1st Line. If inadequate response within 60 minutes, proceed to next-line agent or contact provider if no further options ordered. Patient should allow tablet to dissolve on tongue. Do not remove from blister pack until just before administering. oxytocin (Pitocin) 30 units in 500 mL infusion 250-999 yon-units/min (250-999 mL/hr), IntraVENous, Continuous PRN, bleeding, Starting on 12/31/22 at 2327, For Immediate Post Use Only. Give after delivery of placenta. Bag 1 of 2: Bolus for bag to infuse at 999 ml/hour for 15 minutes (15 units in 250cc). After initial bolus then decrease rate to 250cc/hr for 1 hour. Then discontinue 1241 (New Bag - Provider: Honey Saunders, RAYMOND)1255 (Rate/Dose Change - Provider: Honey Saunders RN) oxytocin (Pitocin) 30 units in 500 mL infusion 125 yon-units/min (125 mL/hr), IntraVENous, Continuous PRN, bleeding, Starting on 01/01/23 at 1315, For 48 hours, , For Immediate Post Use Only. Give after delivery of placenta and initial 30 unit bolus. Bag 2 of 2: 125cc/hr (125 mu/min) for an additional infusion of 500cc (30 units). 1350 (New Bag - Provider: Honey Saunders, RAYMOND) witch adriel-glycerin (Tucks) pad Topical, As needed, hemorrhoids, For perineal pain or discomfort, Starting on 01/01/23 at 1744, , Apply to perineal area. Patient is capable and may self administer at bedside. 1755 (Given - Provider: Akil Gotti RN) 0957 (Given - Provider: Tamara Salmon RN) Linked Groups Order Group 1: ropivacaine (Naropin) 0.2 % (OB) epidural infusion (CANCELED)Jump to med 8 mL/hr, Epidural, Continuous, Starting on 01/01/23 at 0645, Pre-Delivery, PCEA Basal Infusion And ropivacaine 0.2 % in sodium chloride 0.9 % (OB) epidural syringe (CANCELED) Epidural, Continuous, Starting on 01/01/23 at 0645, Pre-Delivery, PCEA patient controlled syringe Pt. Controlled Dose: 5 ml Lockout Interval: 10 min One Hour Limit: 15 mL Group 2: lactated Ringer's bolus (CANCELED) 500 mL, IntraVENous, Administer over 61 Minutes, PRN, Intrauterine resuscitation for hypertonus, tachysystole, non-ressuring status, or as prescribed by the physician. Every hour as needed, nurse may repeat bolus., Starting on Tue12/31/22 at 2327, Pre-Delivery Or lactated Ringer's bolus (CANCELED)Jump to med 1,000 mL, IntraVENous, PRN, Give prior to epidural placement. May be repeated if a second epidural/spinal procedure is performed., Starting on Tue12/31/22 at 2327, Pre-Delivery Group 3: ondansetron ODT (Zofran-ODT) disintegrating tablet 4 mgJump to med 4 mg, Oral, Every 8 hours PRN, nausea, vomiting, Starting on 01/01/23 at 1744, 1st Line. If inadequate response within 60 minutes, proceed to next-line agent or contact provider if no further options ordered. Patient should allow tablet to dissolve on tongue. Do not remove from blister pack until just before administering. Or ondansetron (Zofran) injection 4 mgJump to med 4 mg, IntraVENous, Every 6 hours PRN, nausea, vomiting, Starting on 01/01/23 at 1744, 1st Line. Give IV if patient is unable to take orally. If inadequate response within 60 minutes, proceed to next-line agent or contact provider if no further options ordered. Care Teams (unrecognized sec tion and content) Informatics Analyst Relationship Specialty Start Date End Date [address] [phone] PCP - General Family Medicine 04/29/22 Informatics Analyst Relationship Specialty Start Date End Date Chepe [place] [address] PCP - General Family Medicine 04/29/22 Informatics Analyst Relationship Specialty Start Date End Date [address] [place] [phone] PCP - General Family Medicine 04/29/22 Informatics Analyst Relationship Specialty Start Date [place] [address] PCP - General Family Medicine 04/29/22 Informatics Analyst Relationship Specialty Start Date End Date [address] [place] [address] PCP - General Family Medicine 04/29/22 Informatics Analyst Relationship Specialty Start Date End Date [address] [place] [address] PCP - General Family Medicine 04/29/22 Informatics Analyst Relationship Specialty Start Date End Date [address]ijal [address] [place], [phone] PCP - General Family Medicine 04/29/22 Informatics Analyst Relationship Specialty Start Date End Date Bijal [address] [place], [phone] PCP - General Family Medicine 04/29/22 Informatics Analyst Relationship Specialty Start Date End Date [address]ijal [address] [place], [phone] PCP - General Family Medicine 04/29/22 Informatics Analyst Relationship Specialty Start Date End Date [address]ijal [address] [place], [phone] PCP - General Family Medicine 04/29/22 Informatics Analyst Relationship Specialty Start Date End Date ChepeBijal [address] [place] [phone] PCP - General Family Medicine 04/29/22 Informatics Analyst Relationship Specialty Start Date End Date [address] [place] [phone] PCP - General Family Medicine 04/29/22 Informatics Analyst Relationship Specialty Start Date End Date [address] [place] [phone] PCP - General Family Medicine 04/29/22 Informatics Analyst Relationship Specialty Start Date End Date [address] [place] [address] PCP - General Family Medicine 04/29/22 Informatics Analyst Relationship Specialty Start Date End Date [place] [phone] PCP - General Family Medicine 04/29/22 Informatics Analyst Relationship Specialty Start Date [place] [phone] PCP - General Family Medicine 04/29/22 Informatics Analyst Relationship Specialty Start Date [place] [phone] PCP - General Family Medicine 04/29/22 Informatics Analyst Relationship Specialty Start Date [place] [phone] PCP - General Family Medicine 04/29/22 Informatics Analyst Relationship Specialty Start Date End Date [address] [place] [phone] PCP - General [facility] 04/29/22 Informatics Analyst Relationship Specialty Start Date End Date [address] [place] [id number] PCP - General [facility] 04/29/22 FOR RECORDS PERTAINING TO PATIENTS WHO ARE OR HAVE BEEN ENROLLED IN A CHEMICAL DEPENDENCY/SUBSTANCEABUSE PROGRAM, SOME INFORMATION MAY BE OMITTED. This clinical summary was aggregated from multiple sources. Caution should be exercised in using it in the provision of clinical care. This summary normalizes information from multiple sources, and as a consequence, information in this document may materially change the coding, format and clinical context of patient data. In addition, data may be omitted in some cases. CLINICAL DECISIONS SHOULD BE BASED ON THE PRIMARY CLINICAL RECORDS. [facility]. provides no warranty or guarantee of the accuracy or completeness of information in this document.
[2024-11-18 23:28] VITALS: BP 101/66; PULSE 74; RESP 18; TEMP 36.9; O2SAT 100
[2024-11-18 23:49] LABS: Anion Gap 12 (5-15); BUN 12 mg/dL (4-19); BUN/Creat Ratio 15.7 RATIO (10-20); Calcium,Total 9.4 mg/dL (7.6-11.0); Carbon Dioxide 21.1 mmol/L (21.0-32.0); Chloride 103 mmol/L (98-108); Estimated Creatinine Clearance 100.49 ml/min (50-250); Glucose 98 mg/dL (70-99); Potassium 3.7 mmol/L (3.3-5.1)
--- NOTE | 2024-11-18 23:54 | EX.ED.DYSGE1 ---
HPI History of Present Illness Chief Complaint: Cellulitis Narrative Narrative: Here with spouse for evaluation of worsening cellulitis left upper arm. Reports 2 weeks ago had concerning bug bite noted blistering. States this past Tuesday started getting drainage, used Muciporin. Saw PCP in [place] on Tuesday. It is getting better was told to continue this. However last couple days redness has increased. Called PCP on Tuesday 2 days ago started on clindamycin 300mg 4 times a day. Redness increased. No fever chills no history of diabetes. She reports currently 5 weeks . History of MRSA. No antibiotic allergies. In addition reports contact dermatitis picked up 2 days ago from her significant other. Pruritic papules on her abdomen. Prior similar symptoms: Yes PFSH PFSH Medical History Asymptomatic bradycardia Staph infection Cellulitis Home Medications ?Medication ?Instructions ?Recorded ?Last Taken ?Type clindamycin HCl 300 mg capsule 300 mg PO 4X/DAY 11/18/24 Unknown History vit no.95-ferrous 1 tab PO DAILY 11/18/24 Unknown History fumarate 28 mg-folic acid 800 mcg tablet () amoxicillin 875 mg-potassium 875 mg PO Q12H #20 TABLETS 11/19/24 Unknown Rx clavulanate 125 mg tablet Allergy/AdvReac Type Severity Reaction Status Date / Time No Known Allergies Allergy Verified 11/18/24 22:26 Social History Smoking Status: Never smoker ROS ROS ED Constitutional Constitutional ED: Denies fever(s) Cardiovascular Cardiovascular: Denies chest pain Respiratory/Chest Respiratory/Chest: Denies cough Gastrointestinal Gastrointestinal: Denies diarrhea or vomiting Musculoskeletal Musculoskeletal: Denies none Integumentary Reports rash; Denies wounds Neurologic Neurologic: Denies weakness EXAM Physical Exam Const Vital Signs: 11/18/24 22:26 11/18/24 22:28 11/18/24 23:28 Temperature 97.9 F 97.9 F 98.4 F Temperature Source Temporal Oral Oral Pulse Rate 75 69 74 Respiratory Rate 14 18 18 Blood Pressure 147/91 H 147/67 H 101/66 Blood Pressure Mean 109 93 77 Pulse Ox 98 98 100 Oxygen Delivery Method Room Air Room Air Room Air Positive well nourished and well developed General Appearance ED: well developed and NAD HEENT Reports moist mucous membranes normocephalic and atraumatic Eyes General Eye ED: Yes normal appearance of both eyes Neck full ROM Chest Wall Chest: Negative for tenderness Resp normal respiratory effort and normal air movement Effort and Inspection: symmetric chest movement; Negative for respiratory distress Cardio regular rate, regular rhythm and no murmurs Peripheral Pulses: pulses 2+ throughout GI normal to inspection, nondistended, normoactive bowel sounds and non-tender GI Narrative: Scattered papules abdomen. Palpation: Negative for guarding or rebound tenderness present Extremity Extremity Narrative: Left arm: Upper arm circumferential patch with outline from yesterday with erythema slightly going past this. There was center area yellow blister crusting. No exudative drainage. No streaking up the arm. General Extremety ED: Negative for edema or tenderness General Extremity: Negative for edema Neuro oriented x3 and no sensory deficits noted Sensorium / Orientation: awake and alert Skin Skin Narrative: See above MDM MDM MDM Narrative Medical decision making narrative: Interventions / MDM: Differential diagnosis: Left upper arm cellulitis, contact dermatitis Diagnosis considered but do not suspect: N/A My EKG interpretation: N/A Imaging independently reviewed and interpreted by myself: N/A External documents reviewed: N/A Test considered but not ordered:N/A ED course: Patient with redness to left upper arm progressed over 2 days. Presents she reports combination discomfort only 1 however does have some itching also. She was exposed to contact dermatitis 2 days ago however lesion was noted there approximately 2 weeks ago. She has contact dermatitis on her abdomen. She reports 5 weeks . Currently on clindamycin no other antibiotic allergies. She has history of MRSA. I did perform bedside ultrasound like cobblestoning there is no pockets for concerns of abscess. With reported worsening symptoms we will check basic labs, give dose of IV Unasyn. MRSA history with best coverage currently is clindamycin, IV vancomycin contraindicated with 1st and 2nd trimester . I discussed this with the patient. 0010: Labs normal WBC 7.5 normal electrolytes. Patient reports she has hydrocortisone for her rash on her abdomen at home. I will add Augmentin to her clindamycin for coverage of her cellulitis. She will follow-up with her PCP for reevaluation. All questions were answered. Re-evaluation: stable Disposition discussed with patient/family/significant other: Patient and significant other Case discussed with consulting clinician: N/A This note was generated with [employer] dictation software. It may contain incorrect words, spelling, and punctuation that were not noted in checking the note before signing. Lab Data Attestation: I reviewed the patient's lab results. Labs: Laboratory Results - last 24 hr 11/18/24 23:06 WBC 7.5 RBC 5.06 Hgb 13.7 Hct 41.2 MCV 81.4 MCH 27.1 MCHC 33.3 RDW Std Deviation 40.0 RDW Coeff of [place] 13.7 Plt Count 243 MPV 10.0 Immature Gran % (Auto) 0.400 Neut % (Auto) 68.6 Lymph % (Auto) 17.8 L [place] % (Auto) 8.8 Eos % (Auto) 3.7 Baso % (Auto) 0.7 Absolute Neuts (auto) 5.1 Absolute Lymphs (auto) 1.33 Nucleated RBC % 0 Sodium 136 Potassium 3.7 Chloride 103 Carbon Dioxide 21.1 Anion Gap 12 BUN 12 Creatinine 0.75 Estim Creat Clear Calc 100.49 Est GFR (MDRD) Non-Af 112 BUN/Creatinine Ratio 15.7 Glucose 98 Calcium 9.4 Discharge Plan Triage Chief Complaint: Cellulitis ED Provider: Ba Cardoso Dx/Rx/DC Orders Clinical Impression: Cellulitis of left upper arm, Contact dermatitis, First trimester Instructions: ED Cellulitis, ED Contact Dermatitis Prescriptions: New amoxicillin-pot clavulanate 875-125 mg tablet 875 mg PO Q12H Qty: 20 0RF No Action clindamycin HCl 300 mg capsule 300 mg PO 4X/DAY PNV cmb#95-ferrous fumarate-FA [] 28 mg iron- 800 mcg tablet 1 tab PO DAILY Primary Care Provider: Bijal Mo Referrals: Bijal Mo, DO [Primary Care Provider] - 3-5 Days if not improving Activity Restrictions/Additional Instructions: Labs normal white count 7.5. Normal electrolytes. Take Augmentin in addition to your clindamycin. Use your topical hydrocortisone torso. Follow-up with your doctor. Print Language: Romanian Disposition Disposition: Home, Self Care Discharge Date/Time: 11/19/24 00:32
[2024-11-19 00:30] VITALS: BP 113/71; PULSE 71; RESP 16; TEMP 36.8; O2SAT 100
== END 2024-11-19 00:32 | disposition home or self-care (01) ==
PROVIDERS: Emergency Provider Emergency Medicine; PCP Family Medicine; Visit Provider Emergency Medicine
DX: O99.711 Diseases of the skin and subcutaneous tissue complicating pregnancy, first trimester (principal); L03.114 Cellulitis of left upper limb; L25.9 Unspecified contact dermatitis, unspecified cause; Z3A.01 Less than 8 weeks gestation of pregnancy
CPT/HCPCS: 80048; 85025; 96365; 99283; A4216; J0295

== ENCOUNTER → 2024-12-14 | Outpatient (CLI) | payer BC, SELFPAY ==
[2024-12-14 12:23] LABS: Hematocrit 38.7 % (37-47); Hemoglobin 13.4 g/dL (12.0-15.0); Immature Granulocytes Count 0.040 X10^3/uL (0.0-0.0); Mean Corp Hgb Conc 34.6 g/dL (32-36); Mean Corpuscular Volume 80.1 fL (81-99); Mean Platelet Vol. 10.5 fl (6.2-12.0); NRBC Flagged by Analyzer 0 % (0-5); Platelet Count 219 K/mm3 (150-450); RBC Distribution Width CV 13.2 % (11.6-14.6); RBC Distribution Width SD 37.8 fl (35.1-43.9); Red Blood Count 4.83 M/mm3 (4.2-5.4); White Blood Count 6.7 K/mm3 (4.4-11.0)
[2024-12-14 12:44] LABS: HIV Nonreactive (Nonreactive); Hepatitis B Surface Antigen Nonreactive (Nonreactive); Hepatitis C Antibody Nonreactive (Nonreactive); Syphilis Antibodies Nonreactive (Nonreactive)
[2024-12-17 06:07] LABS: Chlamydia By Nucleic Acid AMP Negative (Negative); Gonococcus By Nucleic Acid AMP Negative (Negative)
== END | disposition home or self-care (01) ==
LOC: BWCLAB 11:04
PROVIDERS: PCP Family Medicine; Referring Provider Advanced Practice Midwife; Visit Provider Advanced Practice Midwife
DX: Z34.90 Encounter for supervision of normal pregnancy, unspecified, unspecified trimester (principal)
CPT/HCPCS: 36415; 85025; 86703; 86762; 86780; 86803; 86850; 86900; 86901; 87086; 87340; 87491; 87591